=== PATIENT | female | born 1945 | race Native Hawaiian/Other Pacific Islander ===

== ENCOUNTER → 2016-05-05 | Outpatient (CLI) | payer MEDICARE, OTHER ==
--- NOTE | 2016-05-05 12:32 | BD ---
EXAMINATION TYPE: MG DEXA axial skeleton. DATE OF EXAM: 05/05/2016 11:29 AM REFERENCE: Previous study dated 03/07/2013. CLINICAL HISTORY: Height: 62.5 Weight: 169 FRAX RISK QUESTIONS: Alcohol (3 or more units per day): no Family History (Parent hip fracture): no Glucocorticoids (More than 3mos): no (Ex: prednisone, prednisolone, methylprednisolone, dexamethasone, and hydrocortisone). History of Fracture in Adulthood: no Secondary Osteoporosis: 1. Type 1 Diabetes: no 2. Hyperthyroidism: no 3. Menopause before 45: yes 4. Malnutrition: no 5. Chronic liver disease: no Rheumatoid Arthritis: no Current Tobacco Use: yes RISK FACTORS HISTORY OF: Family History of Osteoporosis: no Active: yes Diet low in dairy products/other sources of calcium: somewhat Postmenopausal woman: yes, hysterectomy age 42 Take estrogen and/or progesterone medications: not now How long: about 9 years Lost more than 2 inches in height since high school: unsure Hyperparathyroidism: no Adrenal Insufficiency: no MEDICATIONS: Prednisone or other steroids: no Thyroid Medications: no Osteoporosis Medications: no Additional Medications: blood pressure meds, cholesterol meds Additional History: unspecified osteoarthritis , knee& elbow fractured when about 16 in [place] EXAM MEASUREMENTS: Bone mineral densitometry was performed using the [employer] System. Bone mineral density as measured about the Lumbar spine is: ----- L1-L4(G/cm2): 1.047 T Score Values are as follows: ----- L2: -1.5 ----- L3: -0.4 ----- L4: -1.8 ----- L1-L4: -1.1 Bone mineral density has: Decreased -0.5% since study of: 03/07/2013 Bone mineral density about the R hip (g/cm2): 0.980 Bone mineral density about the L hip (g/cm2): 0.941 T Score values are as follows: -----R Neck: -0.4 -----L Neck: -0.7 -----R Intertrochanter: -0.4 -----L Intertrochanter: -0.3 Bone mineral density has: Decreased -5.2% since study of: 03/07/2013 IMPRESSION: Osteopenia (T Score between -2.5 and -1 as noted by T score values lumbar spine. There is slightly increased risk of fracture and the patient may be considered for treatment. Re-Screen 1-2 years. NOTE: T-SCORE=SD OF THE YOUNG ADULT MEAN.
== END | disposition home or self-care (01) ==
LOC: RADBDWWP 10:49
PROVIDERS: ATTEND Family Medicine
DX: M85.80 Other specified disorders of bone density and structure, unspecified site (principal); M19.90 Unspecified osteoarthritis, unspecified site
CPT/HCPCS: 77080

== ENCOUNTER 2017-06-30 09:01 | Day surgery (SDC) | payer MEDICARE, OTHER ==
[2017-06-29 09:52] VITALS: BMI 30.1
--- NOTE | 2017-06-29 20:51 | HP ---
HISTORY AND PHYSICAL DATE OF SURGERY: 06/30/2017 Shana Pennington is a 72-year-old patient seen with progressive right knee pain. We discussed treatment options. She elected to proceed with arthroscopy. Consent was obtained regarding the procedure. PAST MEDICAL HISTORY: 1. Hypertension. 2. Hyperlipidemia. PAST SURGICAL HISTORY: 1. Cholecystectomy. 2. Hysterectomy. DAILY MEDICATIONS: 1. Amlodipine. 2. Atenolol. 3. Atorvastatin. ALLERGIES: NONE REPORTED. SOCIAL HISTORY: Patient does smoke cigarettes. PHYSICAL EVALUATION OF THE RIGHT KNEE: Range of motion is zero to 125 degrees. There is tenderness along the medial joint line with a positive medial Rad's. Ligaments stable. Hip rotation is without pain. Distal neurovascular exam is intact. RADIOGRAPHS: Radiographs of the right knee revealed moderate osteoarthritis. An MRI of the right knee revealed a medial meniscal tear. IMPRESSION: 1. Internal derangement of the right knee with medial meniscal tear. 2. Hypertension. 3. Hyperlipidemia. PLAN: Right knee arthroscopy with partial meniscectomy and debridement. MMODL / IJN: [id number] /
[~2017-06-30 09:01] MED LIST: LACTATED RINGERS 1,000 ML IV SCH; MORPHINE SULFATE 4 MG/ML SYRINGE IVP PRN; ceFAZolin IN SWFI 2 GM/20 ML SYRINGE IVP ONE
[2017-06-30] MEDS ORDERED: LIDOCAINE 1% 20 ML VIAL (10MG/ML) FOR IV START INTRADERMA ONE (09:39)
[2017-06-30] MEDS ORDERED: ONDANSETRON 4 MG/2 ML VIAL IVP ONE (09:40)
[2017-06-30] MEDS ORDERED: DEXAMETHASONE SOD PHOSPHATE 10 MG/ML 1 ML VIAL IV ONE (09:41)
[2017-06-30] MEDS ORDERED: fentaNYL (PF) 50 MCG/ML 2 ML AMP ONE (10:28)
[2017-06-30] MEDS ORDERED: ePHEDrine SULFATE/0.9% NACL/PF 50 MG/5 ML SYRINGE IV ONE (10:28)
[2017-06-30] MEDS ORDERED: PROPOFOL 10 MG/ML 20 ML VIAL IV ONE (10:28)
[2017-06-30] MEDS ORDERED: MORPHINE SULFATE 10 MG/ML SYRINGE ONE (10:28)
[2017-06-30] MEDS ORDERED: MIDAZOLAM 2 MG/2 ML VIAL ONE (10:28)
[2017-06-30] MEDS ORDERED: LIDOCAINE 1% INJ 10MG/ML (20 ML MDV) ONE (10:28)
[2017-06-30] MEDS ORDERED: BUPIVACAINE (PF) 0.25% 30 ML VIAL SQ ONE ×2 (10:57→11:00)
--- NOTE | 2017-06-30 11:19 | P.OP ---
Date of Procedure: 06/30/17 Preoperative Diagnosis: Internal derangement right knee Postoperative Diagnosis: 1. Tear medial and lateral meniscus right knee 2. Grade 3/4 chondromalacia medial femoral condyle right knee 3. Grade 1/2 chondromalacia patella right knee 4. Reactive synovitis medial and suprapatellar compartments right knee Procedure(s) Performed: 1. Arthroscopic partial medial and lateral meniscectomy right knee 2. Arthroscopic chondroplasty medial femoral condyle right knee 3. Arthroscopic microfracture medial femoral condyle right knee 4. Arthroscopic chondroplasty patella right knee 5. Arthroscopic partial synovectomy medial and suprapatellar compartments right knee Anesthesia: WILLIEA, local Surgeon: Akhil Stahl Estimated Blood Loss (ml): 12 Pathology: none sent Condition: stable Disposition: PACU Indications for Procedure: 72-year-old patient seen with progressive right knee pain. After treatment options were discussed, she elected to proceed with arthroscopy. Operative Findings: See description of procedure Description of Procedure: Patient was taken to the operative suite. Patient underwent a general anesthetic by the department of anesthesia. Patient was given preoperative antibiotics. The right lower extremity was placed in a well-padded arthroscopic leg howell. The right leg was prepped and draped in the normal sterile orthopedic fashion. A lateral parapatellar and suprapatellar incision was made. Trochars were inserted. Arthroscopy was initiated. Suprapatellar pouch revealed diffuse thick reactive synovitis. The patellofemoral joint appeared to articulate congruently. There was grade 1/2 chondromalacia of the patella with some osteochondral tears present. The scope was guided into the medial gutter. No loose bodies or plica were identified. The scope was then guided into the medial compartment. A medial parapatellar incision was made. Trocar inserted followed by probe. There was a tear posterior horn medial meniscus. There were grade 3/4 chondromalacia changes of the medial femoral condyle with some osteochondral tears. There was reactive synovitis anteriorly. I performed a partial medial meniscectomy down to stable tissue. I performed a chondroplasty of the medial femoral condyle down to stable tissue and partial synovectomy. The residual meniscus was stable. There was a 1 area of full-thickness defect of the medial femoral condyle weightbearing surface measuring about 1 cm. I proceeded with a microfracture to this area. The residual area was stable. Scope and probe were then guided into the intercondylar notch. Cruciates were identified, probed and found to be stable. The scope and probe were then guided into lateral compartment. There was some superficial tearing midbody lateral meniscus. There were grade 1 chondromalacia changes of the lateral condyle tears present. I performed a partial lateral meniscectomy down to stable tissue. The residual meniscus was stable. The scope was in guided back into the suprapatellar compartment. Motorize shaver was introduced into the suprapatellar compartment. I debrided some piecemeal fragments of meniscus. I performed a chondroplasty of the patella. I performed a partial synovectomy. The residual osteochondral surface was stable. I took one more look on the entire knee, no residual debris. Instruments were now removed from the joint. The joint was infiltrated with .25% Marcaine. Steri-Strips were applied to the portal sites. Sterile dressings were applied. The patient was placed into a NERISSA hose. No tourniquet was utilized. The patient was awakened, transferred to a bed and taken to recovery stable satisfactory condition.
[2017-06-30 11:22] VITALS: TEMP 97.6
[2017-06-30 12:56] VITALS: RESP 16
[2017-06-30 13:35] VITALS: BP 138/67; PULSE 74
[2017-06-30] MEDS ORDERED: HYDROcodone/APAP 5-325MG 1 EACH TAB PO ONE (13:45)
== END 2017-06-30 14:08 | disposition home or self-care (01) ==
LOC: OR 09:01
PROVIDERS: ATTEND Orthopaedic Surgery
DX: S83.241A Other tear of medial meniscus, current injury, right knee, initial encounter (principal); S83.281A Other tear of lateral meniscus, current injury, right knee, initial encounter; X58.XXXA Exposure to other specified factors, initial encounter; M22.41 Chondromalacia patellae, right knee; M65.861 Other synovitis and tenosynovitis, right lower leg; I10 Essential (primary) hypertension; E78.5 Hyperlipidemia, unspecified; Z79.899 Other long term (current) drug therapy; F17.210 Nicotine dependence, cigarettes, uncomplicated; M19.90 Unspecified osteoarthritis, unspecified site; K21.9 Gastro-esophageal reflux disease without esophagitis
CPT/HCPCS: 29880; 29879; J2250; J1100; J2270; J2405; J2001; J3010; J2704; J0690

== ENCOUNTER 2017-11-17 04:18 | Emergency (ER) | payer MEDICARE, OTHER ==
--- NOTE | 2017-11-17 04:51 | ED ---
Dizziness HPI - General Chief Complaint: Dizziness Stated Complaint: dizziness Time Seen by Provider: 11/17/17 04:45 Source: patient, family Mode of arrival: ambulatory Limitations: no limitations - History of Present Illness Initial Comments: This patient is a 72-year-old woman who presents to be evaluated for sensation that the room was spinning that developed this morning, probably about an hour before she came in, when she got up to use the bathroom. Patient states that after she had use the bathroom, she went back and went to lie down in bed and the symptoms recurred. She denied any associated chest pain, palpitations, dyspnea, diaphoresis, lightheadedness or syncope. No associated neurologic symptoms. No head or ear pain MD Complaint: dizziness Onset/Timin -: hour(s) Timing: sudden onset Description: "room spinning" History of Same: No History of Trauma: No Severity: moderate Improves With: remaining still Worsens With: position Associated Symptoms: denies other symptoms - Related Data Home Medications Medication Instructions Recorded Confirmed Atenolol 25 mg PO BID 12/24/14 11/17/17 Atorvastatin [Lipitor] 40 mg PO HS 12/24/14 11/17/17 Fenofibrate 160 mg PO HS 12/24/14 11/17/17 Omeprazole 20 mg PO DAILY 12/24/14 11/17/17 amLODIPine BESYLATE/BENAZEPRIL 1 tab PO DAILY 12/24/14 11/17/17 [Amlodipine-Benazepril 10-20 mg] Alendronate Sodium [Fosamax] 70 mg PO MO 04/11/17 11/17/17 Previous Rx's Medication Instructions Recorded Hydrocodone/Acetaminophen [[place] 1 each PO Q6HR PRN #20 tab 06/30/17 5-325] Allergies Allergy/AdvReac Type Severity Reaction Status Date / Time No Known Allergies Allergy Verified 11/17/17 04:25 Review of Systems ROS Statement: Those systems with pertinent positive or pertinent negative responses have been documented in the HPI. ROS Other: All systems not noted in ROS Statement are negative. Constitutional: Denies: fever, chills, weakness Eyes: Denies: vision change ENT: Denies: ear pain, hearing loss Respiratory: Denies: cough, dyspnea Cardiovascular: Denies: chest pain, palpitations, orthopnea, edema, syncope Gastrointestinal: Denies: abdominal pain, nausea, vomiting Skin: Denies: rash Neurological: Reports: vertigo. Denies: headache, weakness, numbness, paresthesias, confusion, abnormal gait Past Medical History Past Medical History: GERD/Reflux, Hyperlipidemia, Hypertension History of Any Multi-Drug Resistant Organisms: None Reported Past Surgical History: Cholecystectomy, Hysterectomy Past Psychological History: Anxiety Smoking Status: Current some day smoker Past Alcohol Use History: Occasional Past Drug Use History: None Reported General Exam Limitations: no limitations General appearance: alert, in no apparent distress Head exam: Present: atraumatic Eye exam: Present: normal appearance, EOMI. Absent: scleral icterus, conjunctival injection, nystagmus ENT exam: Present: normal oropharynx, mucous membranes moist Neck exam: Present: normal inspection, other (No carotid bruit) Respiratory exam: Present: normal lung sounds bilaterally. Absent: respiratory distress, wheezes, rales, rhonchi, stridor Cardiovascular Exam: Present: regular rate, normal rhythm, normal heart sounds. Absent: systolic murmur, diastolic murmur, rubs, gallop GI/Abdominal exam: Present: soft. Absent: distended, tenderness, guarding, rebound, mass Neurological exam: Present: alert, oriented X3, CN II-XII intact. Absent: motor sensory deficit Skin exam: Present: warm, dry, intact, normal color. Absent: rash Course Vital Signs 11/17/17 04:21 Temperature 98.7 F Pulse Rate 78 Respiratory 18 Rate Blood Pressure 170/75 O2 Sat by Pulse 98 Oximetry EKG Findings - EKG Results: EKG: interpreted by ERMD, sinus rhythm, normal axis, normal QRS, normal ST/T - Blocks, [place], Hypertrophy, ST Abn: Repolarization changes or abnormalities: nonspecific abnormality, ST segment, and/or T wave Medical Decision Making - Lab Data Result diagrams: 11/17/17 04:45 11/17/17 04:45 Lab Results 11/17/17 11/17/17 11/17/17 Range/Units 04:45 04:45 04:45 WBC 9.1 (3.8-10.6) k/uL RBC 4.24 (3.80-5.40) m/uL Hgb 13.6 (11.4-16.0) gm/dL Hct 39.4 (34.0-46.0) % MCV 92.8 (80.0-100.0) fL MCH 31.9 (25.0-35.0) pg MCHC 34.4 (31.0-37.0) g/dL RDW 13.5 (11.5-15.5) % Plt Count 323 (150-450) k/uL Neutrophils % 60 % Lymphocytes % 32 % Monocytes % 4 % Eosinophils % 2 % Basophils % 1 % Neutrophils # 5.4 (1.3-7.7) k/uL Lymphocytes # 2.9 (1.0-4.8) k/uL Monocytes # 0.4 (0-1.0) k/uL Eosinophils # 0.2 (0-0.7) k/uL Basophils # 0.1 (0-0.2) k/uL PT (9.0-12.0) sec INR (<1.2) Sodium 144 (137-145) mmol/L Potassium 3.9 (3.5-5.1) mmol/L Chloride 112 H (98-107) mmol/L Carbon Dioxide 23 (22-30) mmol/L Anion Gap 9 mmol/L BUN 25 H (7-17) mg/dL Creatinine 0.70 (0.52-1.04) mg/dL Est GFR (CKD-EPI)AfAm >90 (>60 ml/min/1.73 sqM) Est GFR (CKD-EPI)NonAf 87 (>60 ml/min/1.73 sqM) Glucose 127 H (74-99) mg/dL Calcium 9.8 (8.4-10.2) mg/dL Total Bilirubin 0.4 (0.2-1.3) mg/dL AST 34 (14-36) U/L ALT 32 (9-52) U/L Alkaline Phosphatase 97 (38-126) U/L Total Creatine Kinase 56 (30-135) U/L CK-MB (CK-2) 0.3 (0.0-2.4) ng/mL CK-MB (CK-2) Rel Index 0.5 Troponin I <0.012 (0.000-0.034) ng/mL Total Protein 7.4 (6.3-8.2) g/dL Albumin 4.6 (3.5-5.0) g/dL 11/17/17 Range/Units 04:45 WBC (3.8-10.6) k/uL RBC (3.80-5.40) m/uL Hgb (11.4-16.0) gm/dL Hct (34.0-46.0) % MCV (80.0-100.0) fL MCH (25.0-35.0) pg MCHC (31.0-37.0) g/dL RDW (11.5-15.5) % Plt Count (150-450) k/uL Neutrophils % % Lymphocytes % % Monocytes % % Eosinophils % % Basophils % % Neutrophils # (1.3-7.7) k/uL Lymphocytes # (1.0-4.8) k/uL Monocytes # (0-1.0) k/uL Eosinophils # (0-0.7) k/uL Basophils # (0-0.2) k/uL PT 10.3 (9.0-12.0) sec INR 1.1 (<1.2) Sodium (137-145) mmol/L Potassium (3.5-5.1) mmol/L Chloride (98-107) mmol/L Carbon Dioxide (22-30) mmol/L Anion Gap mmol/L BUN (7-17) mg/dL Creatinine (0.52-1.04) mg/dL Est GFR (CKD-EPI)AfAm (>60 ml/min/1.73 sqM) Est GFR (CKD-EPI)NonAf (>60 ml/min/1.73 sqM) Glucose (74-99) mg/dL Calcium (8.4-10.2) mg/dL Total Bilirubin (0.2-1.3) mg/dL AST (14-36) U/L ALT (9-52) U/L Alkaline Phosphatase (38-126) U/L Total Creatine Kinase (30-135) U/L CK-MB (CK-2) (0.0-2.4) ng/mL CK-MB (CK-2) Rel Index Troponin I (0.000-0.034) ng/mL Total Protein (6.3-8.2) g/dL Albumin (3.5-5.0) g/dL Disposition Clinical Impression: Vertigo Disposition: HOME SELF-CARE Condition: Good Instructions: Vertigo (ED) Is patient prescribed a controlled substance at d/c from ED?: No Referrals: Gordy Yeung [Primary Care Provider] - 1-2 days
[2017-11-17 04:55] LABS: Basophils # (A) 0.1 k/uL (0-0.2); Basophils % (A) 1 %; Eosinophils # (A) 0.2 k/uL (0-0.7); Eosinophils % (A) 2 %; HCT 39.4 % (34.0-46.0); HGB 13.6 gm/dL (11.4-16.0); Lymphocytes # (A) 2.9 k/uL (1.0-4.8); Lymphocytes % (A) 32 %; MCH 31.9 pg (25.0-35.0); MCHC 34.4 g/dL (31.0-37.0); MCV 92.8 fL (80.0-100.0); Mean Platelet Volume 6.5; Monocytes # (A) 0.4 k/uL (0-1.0); Monocytes % (A) 4 %; Neutrophils # (A) 5.4 k/uL (1.3-7.7); Neutrophils % (A) 60 %; Platelet Count 323 k/uL (150-450); RBC 4.24 m/uL (3.80-5.40); RDW 13.5 % (11.5-15.5); WBC 9.1 k/uL (3.8-10.6)
[2017-11-17 05:08] LABS: INR 1.1 (<1.2); Prothrombin Time 10.3 sec (9.0-12.0)
[2017-11-17 05:09] LABS: ALT 32 U/L (9-52); AST 34 U/L (14-36); Albumin 4.6 g/dL (3.5-5.0); Alkaline Phosphatase 97 U/L (38-126); Anion Gap 9 mmol/L; Blood Urea Nitrogen 25 mg/dL (7-17); Calcium 9.8 mg/dL (8.4-10.2); Carbon Dioxide 23 mmol/L (22-30); Chloride 112 mmol/L (98-107); Glucose 127 mg/dL (74-99); Potassium 3.9 mmol/L (3.5-5.1); Sodium 144 mmol/L (137-145); Total Bilirubin 0.4 mg/dL (0.2-1.3); Total Protein 7.4 g/dL (6.3-8.2)
[2017-11-17 05:12] LABS: Creatine Kinase 56 U/L (30-135)
[2017-11-17 05:25] LABS: Creatine Kinase MB 0.3 ng/mL (0.0-2.4); Troponin I <0.012 ng/mL (0.000-0.034)
[2017-11-17 07:04] VITALS: BP 162/70; PULSE 65; RESP 16; TEMP 98.2
== END 2017-11-17 07:24 | disposition home or self-care (01) ==
LOC: EC 04:18
DX: R42 Dizziness and giddiness (principal); K21.9 Gastro-esophageal reflux disease without esophagitis; E78.5 Hyperlipidemia, unspecified; I10 Essential (primary) hypertension; F17.200 Nicotine dependence, unspecified, uncomplicated; Z79.899 Other long term (current) drug therapy
CPT/HCPCS: 36415; 80053; 82550; 82553; 84484; 85025; 85610; 93005; 99284

== ENCOUNTER → 2018-01-06 | Outpatient (CLI) | payer MEDICARE, OTHER ==
[2018-01-06 14:25] LABS: Albumin 4.4 g/dL (3.5-5.0); Magnesium 2.1 mg/dL (1.6-2.3); Potassium 4.4 mmol/L (3.5-5.1); Total Bilirubin 0.6 mg/dL (0.2-1.3); Total Protein 7.7 g/dL (6.3-8.2)
--- NOTE | 2018-01-06 14:30 | US ---
EXAMINATION TYPE: US venous doppler duplex LE LT DATE OF EXAM: 01/06/2018 1:30 PM COMPARISON: NONE CLINICAL HISTORY: Pain in left lower limb M79.605. SIDE PERFORMED: Left TECHNIQUE: The lower extremity deep venous system is examined utilizing real time linear array sonog karla with graded compression, doppler sonography and color-flow sonography. VESSELS IMAGED: External Iliac Vein (EIV) Common Femoral Vein Deep Femoral Vein Greater Saphenous Vein * Femoral Vein Popliteal Vein Proximal Calf Veins (* superficial vessels) Left Leg: Negative for DVT Grayscale, color doppler, spectral doppler imaging performed of the deep veins of the left lower extr emity. There is normal flow, compressibility, vascular waveforms. IMPRESSION: No ultrasound evidence for acute DVT in the left lower extremity.
== END | disposition home or self-care (01) ==
LOC: RADUSWWP 13:05
PROVIDERS: ATTEND Family Medicine
DX: M79.605 Pain in left leg (principal)
CPT/HCPCS: 36415; 80053; 83735

== ENCOUNTER 2018-06-07 07:40 | Emergency (ER) | payer MEDICARE, OTHER ==
[2018-06-07 07:45] VITALS: BP 109/71; PULSE 69; RESP 18; TEMP 98.2
[2018-06-07] MEDS ORDERED: CYCLOBENZAPRINE 10MG STARTER 3 TAB BTL PO STA (08:19)
[2018-06-07] MEDS ORDERED: KETOROLAC 60 MG/2 ML VIAL IM STA (08:19)
[2018-06-07] MEDS ORDERED: ACET/COD 300 MG/30 MG STARTER PACK 6 TAB BTL PO STA (08:19)
--- NOTE | 2018-06-07 08:23 | ED ---
Back Pain HPI - General Chief Complaint: Back Pain/Injury Stated Complaint: back pain Time Seen by Provider: 06/07/18 07:55 Source: patient, RN notes reviewed, old records reviewed Limitations: no limitations - History of Present Illness Initial Comments: Patient is a 73-year-old female who presents emergency room today with complaints of thoracic and lumbar back pain. Patient states she saw her PCP yesterday. She was given an injection for pain and discharged with by mouth Motrin. Patient states that she has an order for outpatient x-rays. Patient states the pain does not seem to improve after the injection. Patient states pain is worse with movement twisting. She denies any saddle anesthesias. She denies any abdominal pain, dysuria hematuria or changes in stools. Patient states that she has had pain for the past 2 weeks after getting a new cat. She reports that she's been having to lift the Food up and put it away on a shelf. - Related Data Home Medications Medication Instructions Recorded Confirmed Atenolol 25 mg PO BID 12/24/14 06/07/18 Atorvastatin [Lipitor] 40 mg PO HS 12/24/14 06/07/18 Fenofibrate 160 mg PO HS 12/24/14 06/07/18 Omeprazole 20 mg PO DAILY 12/24/14 06/07/18 amLODIPine BESYLATE/BENAZEPRIL 1 tab PO DAILY 12/24/14 06/07/18 [Amlodipine-Benazepril 10-20 mg] Previous Rx's Medication Instructions Recorded Cyclobenzaprine [Flexeril] 10 mg PO TID #12 tab 06/07/18 Allergies Allergy/AdvReac Type Severity Reaction Status Date / Time No Known Allergies Allergy Verified 06/07/18 08:03 Review of Systems ROS Statement: Those systems with pertinent positive or pertinent negative responses have been documented in the HPI. ROS Other: All systems not noted in ROS Statement are negative. Past Medical History Past Medical History: GERD/Reflux, Hyperlipidemia, Hypertension History of Any Multi-Drug Resistant Organisms: None Reported Past Surgical History: Cholecystectomy, Hysterectomy Past Psychological History: Anxiety Smoking Status: Current some day smoker Past Alcohol Use History: None Reported Past Drug Use History: None Reported General Exam - General Exam Comments Initial Comments: Pleasant 73-year-old female. Alert and oriented 3. No significant distress. Limitations: no limitations General appearance: alert, in no apparent distress Head exam: Present: atraumatic, normocephalic, normal inspection Eye exam: Present: normal appearance, PERRL, EOMI. Absent: scleral icterus, conjunctival injection, periorbital swelling ENT exam: Present: normal exam, mucous membranes moist Neck exam: Present: normal inspection. Absent: tenderness, meningismus, lymphadenopathy Respiratory exam: Present: normal lung sounds bilaterally. Absent: respiratory distress, wheezes, rales, rhonchi, stridor Cardiovascular Exam: Present: regular rate, normal rhythm, normal heart sounds. Absent: systolic murmur, diastolic murmur, rubs, gallop, clicks GI/Abdominal exam: Present: soft, normal bowel sounds. Absent: distended, tenderness, guarding, rebound, rigid Extremities exam: Present: normal inspection, full ROM, normal capillary refill. Absent: tenderness, pedal edema, joint swelling, calf tenderness Back exam: Present: normal inspection, tenderness (Patient has tenderness over the lumbar and thoracic spine.) Neurological exam: Present: alert, oriented X3, CN II-XII intact Psychiatric exam: Present: normal affect, normal mood Skin exam: Present: warm, dry, intact, normal color. Absent: rash Course Vital Signs 06/07/18 07:42 Temperature 98.2 F Pulse Rate 69 Respiratory 18 Rate Blood Pressure 109/71 O2 Sat by Pulse 99 Oximetry Medical Decision Making - Medical Decision Making Patient is a 73-year-old female who presents for service today with complaints of lower back pain. Symptoms are worse with movement. Patient's x-rays were completed. His evidence of L5-S1 degenerative disc disease. No other acute osseous normality. Patient will be discharged with following up with her primary care physician. I discussed using antibiotics her medicine and will prescribe the Patient with muscle relaxers. All questions answered return parameters were discussed. - Radiology Data Radiology results: report reviewed Subtle scoliosis which can be positional. There is no acute osseous normality within the thoracic spine. Lumbar spine shows posterior L5-S1 degenerative disc disease noted. The she will buy heads are preserved. Alignment is normal. Minimal spondylosis is present. Disposition Clinical Impression: Acute lumbar back pain, DDD (degenerative disc disease), lumbar Disposition: HOME SELF-CARE Condition: Good Instructions (If sedation given, give patient instructions): Acute Low Back Pain (ED) Additional Instructions: Patient advised to follow-up with primary care physician. Patient should return to emergency department if any alarming signs or symptoms occur. Prescriptions: Cyclobenzaprine [Flexeril] 10 mg PO TID #12 tab Is patient prescribed a controlled substance at d/c from ED?: No Referrals: Gordy Yeung DO [Primary Care Provider] - 1-2 days Jesus Manuel Redmond DO [Doctor of Osteopathic Medicine] - 1-2 days Time of Disposition: 09:36
--- NOTE | 2018-06-07 09:22 | XR ---
EXAMINATION TYPE: XR thoracic spine 2V DATE OF EXAM: 06/07/2018 COMPARISON: None HISTORY: Upper back pain TECHNIQUE: Three-view thoracic spine FINDINGS: There are 12 thoracic type vertebral bodies. Pedicles are intact. Disc heights are preserve d. Vertebral body heights are preserved. There is a subtle scoliosis present with convexity to the right. This can be positional. IMPRESSION: 1. Subtle scoliosis which can be positional. 2. No acute osseous abnormality.
--- NOTE | 2018-06-07 09:24 | XR ---
EXAMINATION TYPE: XR lumbar spine 2 or 3V DATE OF EXAM: 06/07/2018 COMPARISON: None HISTORY: Pain low back TECHNIQUE: Three-view lumbar spine FINDINGS: There are 5 lumbar-type vertebral bodies. Pedicles are intact. Some posterior disc space na rrowing is present L5-S1. Remaining disc heights are preserved. Vertebral body heights are preserved. Alignment is normal. Minimal spondylosis is present. IMPRESSION: 1. Posterior L5-S1 degenerative disc changes.
== END 2018-06-07 10:06 | disposition home or self-care (01) ==
LOC: EC 07:40
DX: M51.37 Other intervertebral disc degeneration, lumbosacral region (principal); K21.9 Gastro-esophageal reflux disease without esophagitis; E78.5 Hyperlipidemia, unspecified; I10 Essential (primary) hypertension; F17.200 Nicotine dependence, unspecified, uncomplicated; Z79.899 Other long term (current) drug therapy
CPT/HCPCS: 99284; 96372; 72070; 72100; J1885

== ENCOUNTER → 2019-08-28 | Outpatient (CLI) | payer MEDICARE, OTHER ==
[2019-08-28 09:39] LABS: African American GFR (CKD) >90 (>60 ml/min/1.73 sqM); Blood Urea Nitrogen 15 mg/dL (7-17); Non-African American GFR(CKD) 86 (>60 ml/min/1.73 sqM)
--- NOTE | 2019-08-28 11:26 | CT ---
EXAMINATION TYPE: CT abdomen pelvis w con DATE OF EXAM: 08/28/2019 COMPARISON: Correlation CT chest 08/01/2012 HISTORY: 74-year-old female with flank pain, generalized abdominal pain, constipation TECHNIQUE: Contiguous axial scanning of the abdomen and pelvis following administration of 100 ml Iso dru 300 IV contrast. Delayed images through the kidneys and coronal/sagittal reconstructions perform ed. CT DLP: 643.2 mGycm Automated exposure control for dose reduction was used. FINDINGS: Heart normal size without pericardial effusion. Lung bases clear without pleural effusion. 5 mm hypodensity anterior right liver lobe on axial image 14 too small for density characterization, probable tiny cyst. Portal venous system is patent. No biliary ductal dilatation. Gallbladder appears surgically absent. Mild nodular thickening of the right adrenal gland measuring up to 1.7 cm and be reassessed at follow -up. Left adrenal gland, kidneys, spleen, pancreas appear within normal limits. No dilated small bowel, free fluid, or free air. No mesenteric or retroperitoneal lymphadenopathy. There is moderate circumferential wall thickening extending along the ascending colon from the level of the ileocecal valve nearly to the hepatic flexure. There is secondary in the luminal narrowing is somewhat shouldered appearance, refer to coronal image 36 and axial image 42. Oral contrast has progr essed to the mid transverse colon there is mild overall stool burden. No pericolonic inflammatory gualberto nge otherwise seen. Appendix not discretely visualized. Mild circumferential bladder wall thickening. Mild pelvic floor relaxation. Multiple pelvic phlebolit hs. Uterus surgically absent. Small bilateral ovaries are visualized. No abnormal fluid collection in the pelvis or pelvic lymphadenopathy. Bones: Hypertrophic facet arthropathy at L5-S1 with grade 1 anterolisthesis. IMPRESSION: 1. MODERATE IRREGULAR WALL THICKENING INVOLVING THE ASCENDING COLON FROM THE LEVEL OF THE ILEOCECAL V ALVE NEARLY UP TO THE HEPATIC FLEXURE. CORRELATE FOR INFECTIOUS OR INFLAMMATORY COLITIS. FOLLOWING TR EATMENT, DIRECT VISUALIZATION RECOMMENDED TO EXCLUDE UNDERLYING NEOPLASM. 2. A 1.7 CM RIGHT ADRENAL NODULE WAS PRESENT BACK ON 08/01/2012 SUGGESTING A BENIGN ADRENAL ADENOMA. 3. MUSCULAR COMPARTMENT OR BLADDER WALL THICKENING; CORRELATE TO EXCLUDE CYSTITIS. 4. PELVIC FLOOR RELAXATION.
== END | disposition home or self-care (01) ==
LOC: RADCTMAIN 08:56
PROVIDERS: ATTEND Family Medicine
DX: K63.89 Other specified diseases of intestine (principal); N81.84 Pelvic muscle wasting; E27.9 Disorder of adrenal gland, unspecified; N32.89 Other specified disorders of bladder; K59.00 Constipation, unspecified
CPT/HCPCS: 82565; 84520; 74177; 36415; Q9967

== ENCOUNTER 2019-10-11 10:30 | Emergency (ER) | payer MEDICARE, OTHER ==
[2019-10-11] MEDS ORDERED: MAG HYDROX/AL HYDROX/SIMETH 30 ML, HYOSCYAMINE ELIXIR 10 ML, LIDOCAINE VISCOUS 2% 10 ML PO STA ×3 (10:54)
[2019-10-11] MEDS ORDERED: FAMOTIDINE 20 MG/2 ML VIAL IV STA (10:54)
[2019-10-11] MEDS ORDERED: SODIUM CHLORIDE 0.9% 1,000 ML IV STA (10:54)
--- NOTE | 2019-10-11 10:58 | ED ---
General Adult HPI - General Chief complaint: Abdominal Pain Stated complaint: abd pain Time Seen by Provider: 10/11/19 10:41 Source: patient, RN notes reviewed Mode of arrival: wheelchair Limitations: no limitations - History of Present Illness Initial comments: 74-year-old female presents to the emergency determine for chief complaint of epigastric pain. Patient states she has had issues with her abdominal pain since July. States she saw her primary care provider earlier this week who had her see Dr. Elliott. She saw him yesterday and was scheduled for colonoscopy on next Tuesday. Patient states this pain worsened 3 days ago. States it is epi gastric in nature. Patient states it feels better at night but worsened throughout the day. Denies any other alleviating or aggravating factors. Denies nausea vomiting. Patient states she did take milk of magnesia to have a bowel movement but did have a normal bowel movement yesterday.Patient has no other complaints at this time including shortness of breath, chest pain, nausea or vomiting, headache, or visual changes. - Related Data Home Medications Medication Instructions Recorded Confirmed Atenolol 25 mg PO BID 12/24/14 06/07/18 Omeprazole 20 mg PO DAILY 12/24/14 06/07/18 amLODIPine BESYLATE/BENAZEPRIL 1 tab PO DAILY 12/24/14 06/07/18 [Amlodipine-Benazepril 10-20 mg] ALPRAZolam [Xanax] 0.25 mg PO HS PRN 10/11/19 10/11/19 Ibuprofen [Motrin] 800 mg PO TID PRN 10/11/19 10/11/19 Levofloxacin 500 mg PO DAILY 10/11/19 10/11/19 Ondansetron Odt [Zofran Odt] 4 mg PO Q12H PRN 10/11/19 10/11/19 Allergies Allergy/AdvReac Type Severity Reaction Status Date / Time No Known Allergies Allergy Verified 10/11/19 12:52 Review of Systems ROS Statement: Those systems with pertinent positive or pertinent negative responses have been documented in the HPI. ROS Other: All systems not noted in ROS Statement are negative. Past Medical History Past Medical History: GERD/Reflux, Hyperlipidemia, Hypertension History of Any Multi-Drug Resistant Organisms: None Reported Past Surgical History: Cholecystectomy, Hysterectomy Past Psychological History: Anxiety Smoking Status: Current some day smoker Past Alcohol Use History: None Reported Past Drug Use History: None Reported General Exam Limitations: no limitations General appearance: alert, in no apparent distress Head exam: Present: atraumatic, normocephalic, normal inspection Eye exam: Present: normal appearance, PERRL, EOMI. Absent: scleral icterus, conjunctival injection, periorbital swelling ENT exam: Present: normal exam, mucous membranes moist Neck exam: Present: normal inspection, full ROM. Absent: tenderness, meningi smus, lymphadenopathy Respiratory exam: Present: normal lung sounds bilaterally. Absent: respiratory distress, wheezes, rales, rhonchi, stridor Cardiovascular Exam: Present: regular rate, normal rhythm, normal heart sounds. Absent: systolic murmur, diastolic murmur, rubs, gallop, clicks GI/Abdominal exam: Present: soft, tenderness (Mild tenderness epigastric area), normal bowel sounds. Absent: distended, guarding, rebound, rigid Neurological exam: Present: alert Course Vital Signs 10/11/19 10:37 Temperature 97.6 F Pulse Rate 66 Respiratory 18 Rate Blood Pressure 134/74 O2 Sat by Pulse 99 Oximetry EKG Findings - EKG Comments: EKG Findings:: Normal sinus rhythm, ventricular rate 62, TN interval 170, QTC 414 Medical Decision Making - Medical Decision Making CT abdomen and pelvis with contrast performed on 08/28/2019 showed moderate irregular wall thickening involving the descending colon from the level of the ileocecal valve nearly up to the hepatic flexure, correlate for infectious or inflammatory colitis. Patient did take 10 days of an unknown antibiotic at that time and symptoms improved. Vitals are stable. Patient is afebrile. CBC shows minimal leukocytosis, likely reactive. CMP is unremarkable. EKG shows a normal sinus rhythm. X-ray KUB shows scattered small colonic air-fluid level suggesting liquid stool which could reflect enteritis or ileus, overall nonobstructive bowel gas pattern at this time. No free air. Patient was given Pepcid and GI cocktail. She had significant improvement in pain down from an 8 to a 3. Abdomen was reevaluated and is nontender. Patient has an appointment with her surgeon in less than a week. At this time patient will be discharged home to follow up. She will continue to take her Protonix. She'll return here for any worsening symptoms w ere discussed in depth with her. - Lab Data Result diagrams: 10/11/19 11:17 10/11/19 11:17 Lab Results 10/11/19 10/11/19 10/11/19 Range/Units 11:17 11:17 11:17 WBC 12.8 H (3.8-10.6) k/uL RBC 4.75 (3.80-5.40) m/uL Hgb 14.4 (11.4-16.0) gm/dL Hct 43.3 (34.0-46.0) % MCV 91.2 (80.0-100.0) fL MCH 30.4 (25.0-35.0) pg MCHC 33.3 (31.0-37.0) g/dL RDW 13.3 (11.5-15.5) % Plt Count 308 (150-450) k/uL Neutrophils % 83 % Lymphocytes % 10 % Monocytes % 5 % Eosinophils % 2 % Basophils % 0 % Neutrophils # 10.6 H (1.3-7.7) k/uL Lymphocytes # 1.3 (1.0-4.8) k/uL Monocytes # 0.6 (0-1.0) k/uL Eosinophils # 0.2 (0-0.7) k/uL Basophils # 0.0 (0-0.2) k/uL Sodium 138 (137-145) mmol/L Potassium 4.5 (3.5-5.1) mmol/L Chloride 104 (98-107) mmol/L Carbon Dioxide 25 (22-30) mmol/L Anion Gap 9 mmol/L BUN 22 H (7-17) mg/dL Creatinine 0.96 (0.52-1.04) mg/dL Est GFR (CKD-EPI)AfAm 67 (>60 ml/min/1.73 sqM) Est GFR (CKD-EPI)NonAf 59 (>60 ml/min/1.73 sqM) Glucose 91 (74-99) mg/dL Plasma Lactic Acid Sudhakar (0.7-2.0) mmol/L Calcium 10.0 (8.4-10.2) mg/dL Total Bilirubin 0.8 (0.2-1.3) mg/dL AST 25 (14-36) U/L ALT 20 (4-34) U/L Alkaline Phosphatase 108 (38-126) U/L Troponin I (0.000-0.034) ng/mL Total Protein 7.5 (6.3-8.2) g/dL Albumin 4.2 (3.5-5.0) g/dL Amylase 52 (30-110) U/L Lipase 103 (23-300) U/L Urine Color Yellow Urine Appearance Clear (Clear) Urine pH 6.0 (5.0-8.0) Ur Specific [place] 1.014 (1.001-1.035) Urine Protein Negative (Negative) Urine Glucose (UA) Negative (Negative) Urine Ketones Negative (Negative) Urine Blood Small H (Negative) Urine Nitrite Negative (Negative) Urine Bilirubin Negative (Negative) Urine Urobilinogen <2.0 (<2.0) mg/dL Ur Leukocyte Esterase Negative (Negative) Urine RBC 2 (0-5) /hpf Urine WBC 1 (0-5) /hpf Ur Squamous Epith Cells 4 (0-4) /hpf Hyaline Casts 11 H (0-2) /lpf Urine Mucus Few H (None) /hpf 10/11/19 10/11/19 Range/Units 11:17 11:17 WBC (3.8-10.6) k/uL RBC (3.80-5.40) m/uL Hgb (11.4-16.0) gm/dL Hct (34.0-46.0) % MCV (80.0-100.0) fL MCH (25.0-35.0) pg MCHC (31.0-37.0) g/dL RDW (11.5-15.5) % Plt Count (150-450) k/uL Neutrophils % % Lymphocytes % % Monocytes % % Eosinophils % % Basophils % % Neutrophils # (1.3-7.7) k/uL Lymphocytes # (1.0-4.8) k/uL Monocytes # (0-1.0) k/uL Eosinophils # (0-0.7) k/uL Basophils # (0-0.2) k/uL Sodium (137-145) mmol/L Potassium (3.5-5.1) mmol/L Chloride (98-107) mmol/L Carbon Dioxide (22-30) mmol/L Anion Gap mmol/L BUN (7-17) mg/dL Creatinine (0.52-1.04) mg/dL Est GFR (CKD-EPI)AfAm (>60 ml/min/1.73 sqM) Est GFR (CKD-EPI)NonAf (>60 ml/min/1.73 sqM) Glucose (74-99) mg/dL Plasma Lactic Acid Sudhakar 1.4 (0.7-2.0) mmol/L Calcium (8.4-10.2) mg/dL Total Bilirubin (0.2-1.3) mg/dL AST (14-36) U/L ALT (4-34) U/L Alkaline Phosphatase (38-126) U/L Troponin I <0.012 (0.000-0.034) ng/mL Total Protein (6.3-8.2) g/dL Albumin (3.5-5.0) g/dL Amylase (30-110) U/L Lipase (23-300) U/L Urine Color Urine Appearance (Clear) Urine pH (5.0-8.0) Ur Specific [place] (1.001-1.035) Urine Protein (Negative) Urine Glucose (UA) (Negative) Urine Ketones (Negative) Urine Blood (Negative) Urine Nitrite (Negative) Urine Bilirubin (Negative) Urine Urobilinogen (<2.0) mg/dL Ur Leukocyte Esterase (Negative) Urine RBC (0-5) /hpf Urine WBC (0-5) /hpf Ur Squamous Epith Cells (0-4) /hpf Hyaline Casts (0-2) /lpf Urine Mucus (None) /hpf Disposition Clinical Impression: Abdominal pain Disposition: HOME SELF-CARE Condition: Good Instructions (If sedation given, give patient instructions): Abdominal Pain (E D) Additional Instructions: Please follow-up with your surgeon at your scheduled appointment. However if you have worsening symptoms or increased pain prior to that time return here to the emergency department for reevaluation. Is patient prescribed a controlled substance at d/c from ED?: No Referrals: Gordy Yeung DO [Primary Care Provider] - 1-2 days Jose De Jesus Elliott MD [Medical Doctor] - 1-2 days Time of Disposition: 12:57
[2019-10-11 11:32] LABS: Basophils % (A) 0 %; Eosinophils # (A) 0.2 k/uL (0-0.7); Eosinophils % (A) 2 %; HCT 43.3 % (34.0-46.0); HGB 14.4 gm/dL (11.4-16.0); Lymphocytes # (A) 1.3 k/uL (1.0-4.8); Lymphocytes % (A) 10 %; MCH 30.4 pg (25.0-35.0); MCHC 33.3 g/dL (31.0-37.0); MCV 91.2 fL (80.0-100.0); Mean Platelet Volume 6.9; Monocytes # (A) 0.6 k/uL (0-1.0); Monocytes % (A) 5 %; Neutrophils # (A) 10.6 k/uL (1.3-7.7); Neutrophils % (A) 83 %; Platelet Count 308 k/uL (150-450); RBC 4.75 m/uL (3.80-5.40); RDW 13.3 % (11.5-15.5); WBC 12.8 k/uL (3.8-10.6)
[2019-10-11 11:48] LABS: Albumin 4.2 g/dL (3.5-5.0); Total Bilirubin 0.8 mg/dL (0.2-1.3); Total Protein 7.5 g/dL (6.3-8.2)
--- NOTE | 2019-10-11 11:52 | XR ---
EXAMINATION TYPE: XR KUB DATE OF EXAM: 10/11/2019 Comparison: 06/15/2012 Clinical History: 74-year-old female abdominal pain Findings: Lung bases are clear. No evidence for free intraperitoneal air. Scattered small air-fluid levels throughout the colon. Mild stool burden. No dilated small bowel. Right-sided pelvic phlebolith. Impression: Scattered small colonic air-fluid levels suggesting liquid stool which could reflect enteritis or ile us. Overall nonobstructive bowel gas pattern at this time. No free air.
[2019-10-11 11:56] LABS: Appearance,Urine Clear (Clear); Bilirubin,Urine Negative (Negative); Blood,Urine Small (Negative); Color,Urine Yellow; Glucose,Urine (UA) Negative (Negative); Hyaline Casts,Urine 11 /lpf (0-2); Ketones,Urine Negative (Negative); Leukocyte Esterase,Urine Negative (Negative); Mucus,Urine Few /hpf; Nitrite,Urine Negative (Negative); Protein,Urine Negative (Negative); RBC,Urine 2 /hpf (0-5); Specific Gravity,Urine 1.014 (1.001-1.035); Squamous Epithelial Cell,Urine 4 /hpf (0-4); Urobilinogen,Urine <2.0 mg/dL (<2.0); WBC,Urine 1 /hpf (0-5)
[2019-10-11 11:58] LABS: Potassium 4.5 mmol/L (3.5-5.1)
[2019-10-11] MEDS ORDERED: traMADol 50 MG STARTER PACK 3 TAB BTL PO STA (13:08)
[2019-10-11 13:34] VITALS: BP 134/63; PULSE 64; RESP 14; TEMP 98.5
== END 2019-10-11 13:40 | disposition home or self-care (01) ==
LOC: EC 10:30
DX: D72.829 Elevated white blood cell count, unspecified (principal); K21.9 Gastro-esophageal reflux disease without esophagitis; I10 Essential (primary) hypertension; F17.200 Nicotine dependence, unspecified, uncomplicated; Z90.49 Acquired absence of other specified parts of digestive tract; Z90.710 Acquired absence of both cervix and uterus; Z79.899 Other long term (current) drug therapy
CPT/HCPCS: 36415; 74018; 80053; 81001; 82150; 83605; 83690; 84484; 85025; 93005; 96361; 96374; 99284

== ENCOUNTER 2019-10-16 10:49 | Day surgery (SDC) | payer MEDICARE, OTHER ==
[2019-10-12 14:34] VITALS: BMI 28.3
[~2019-10-16 10:49] MED LIST changes: -MORPHINE SULFATE 4 MG/ML SYRINGE IVP PRN; -ceFAZolin IN SWFI 2 GM/20 ML SYRINGE IVP ONE
[2019-10-16 11:16] VITALS: TEMP 98.2
[2019-10-16] MEDS ORDERED: PROPOFOL 10 MG/ML 20 ML VIAL IV ONE (11:58)
--- NOTE | 2019-10-16 12:25 | P.PCN ---
Date of Procedure: 10/16/19 Procedure(s) Performed: PREOPERATIVE DIAGNOSIS: Change in bowel habits, epigastric pain POSTOPERATIVE DIAGNOSIS: Erosive gastritis, sliding hiatal hernia, normal colon PROCEDURE: 1. EGD with biopsy 2. Colonoscopy ANESTHESIA: MAC SURGEON: Jose De Jesus Elliott M.D. SPECIMENS: Antrum ENDOSCOPIC PROCEDURE: The patient was on the endoscopy table in the left decubitus position. The Olympus gastroscope was inserted into the oropharynx and passed under direct visualization to the region of the third portion of the duodenum. From that point the scope was slowly withdrawn inspecting all surfaces carefully. There were no neoplastic inflammatory or polypoid lesions throughout the duodenum. The pylorus was widely patent. The stomach was carefully inspected. There was erosive gastritis present. There was some evidence of bleeding in the stomach. No ulcerations or neoplastic changes were seen. A biopsy of the antrum took place to rule out H. pylori. Retroflexion revealed a small hiatal hernia. The esophagus was then carefully examined. There were no neoplastic inflammatory or polypoid lesions throughout the visualized esophagus. The patient was kept on the endoscopy table in the left decubitus position. The Olympus colonoscope was inserted into the anus and passed under direct visualization to the base of the cecum. The appendiceal orifice was visualized. From that point the scope was slowly withdrawn inspecting all surfaces carefully. There were no neoplastic inflammatory or polypoid lesions throughout the cecum, ascending, transverse, descending, sigmoid and rectum. There was no visible diverticulosis noted. Digital rectal examination was normal. The patient was taken to the recovery room in stable condition per anesthesia guidelines. RECOMMENDATIONS: Begin antiacid therapy. Await biopsy results. Monitor bowel habits
[2019-10-16 12:42] VITALS: BP 120/69; PULSE 50; RESP 16
== END 2019-10-16 13:07 | disposition home or self-care (01) ==
LOC: ORWHC2ENDO 10:49
PROVIDERS: ATTEND Surgery
DX: K29.50 Unspecified chronic gastritis without bleeding (principal); K44.9 Diaphragmatic hernia without obstruction or gangrene; K59.09 Other constipation; I10 Essential (primary) hypertension; K21.9 Gastro-esophageal reflux disease without esophagitis; F41.9 Anxiety disorder, unspecified; F17.210 Nicotine dependence, cigarettes, uncomplicated; Z90.49 Acquired absence of other specified parts of digestive tract; Z79.891 Long term (current) use of opiate analgesic; Z79.899 Other long term (current) drug therapy
CPT/HCPCS: 88305; 45378; 43239; J2704

== ENCOUNTER 2019-10-22 11:38 | Emergency (ER) | payer MEDICARE, OTHER ==
[2019-10-22 11:51] VITALS: RESP 18
[2019-10-22] MEDS ORDERED: IOPAMIDOL CONTRAST (ORAL USE) VIAL PO PRN (12:23)
[2019-10-22] MEDS ORDERED: PANTOPRAZOLE 40 MG/10 ML VIAL IVP STA (12:23)
[2019-10-22] MEDS ORDERED: SODIUM CHLORIDE 0.9% 1,000 ML IV STA (12:23)
[2019-10-22] MEDS ORDERED: DICYCLOMINE 10 MG/ML 2 ML AMP IM STA (12:23)
--- NOTE | 2019-10-22 12:26 | ED ---
General Adult HPI - General Chief complaint: Abdominal Pain Stated complaint: abd pain Time Seen by Provider: 10/22/19 12:01 Source: patient, RN notes reviewed, old records reviewed Mode of arrival: ambulatory Limitations: no limitations - History of Present Illness Initial comments: Patient is a pleasant 74-year-old female presenting to the emergency Department with complaints of abdominal discomfort. Symptoms of benign brain for several months. Patient has had a good bowel movement in the last 5 or 6 days. Patient feels full. Patient has abdominal cramping. Patient is tolerating oral intake. No nausea or vomiting. No diarrhea. No fevers. Patient did have colonoscopy less than one week ago. Discomfort is mostly periumbilical. - Related Data Home Medications Medication Instructions Recorded Confirmed Atenolol 25 mg PO BID 12/24/14 10/22/19 Omeprazole 20 mg PO BID 12/24/14 10/22/19 amLODIPine BESYLATE/BENAZEPRIL 1 cap PO DAILY 12/24/14 10/22/19 [Amlodipine-Benazepril 10-20 mg] ALPRAZolam [Xanax] 0.25 mg PO HS PRN 10/11/19 10/22/19 Ondansetron Odt [Zofran Odt] 4 mg PO Q12H PRN 10/11/19 10/22/19 Sucralfate [Carafate] 1 gm PO QID 10/22/19 10/22/19 Previous Rx's Medication Instructions Recorded Dicyclomine [Bentyl] 20 mg PO QID PRN #12 tablet 10/22/19 Allergies Allergy/AdvReac Type Severity Reaction Status Date / Time No Known Allergies Allergy Verified 10/16/19 11:12 Review of Systems ROS Statement: Those systems with pertinent positive or pertinent negative responses have been documented in the HPI. ROS Other: All systems not noted in ROS Statement are negative. Constitutional: Denies: fever Eyes: Denies: eye pain ENT: Denies: ear pain Respiratory: Denies: cough Cardiovascular: Denies: chest pain Endocrine: Denies: fatigue Gastrointestinal: Reports: as per HPI, abdominal pain, constipation. Denies: nausea, vomiting, diarrhea Genitourinary: Denies: dysuria Musculoskeletal: Denies: back pain Skin: Denies: rash Neurological: Denies: weakness Past Medical History Past Medical History: GERD/Reflux, Hyperlipidemia, Hypertension History of Any Multi-Drug Resistant Organisms: None Reported Past Surgical History: Cholecystectomy, Hysterectomy Past Psychological History: Anxiety Smoking Status: Current some day smoker Past Alcohol Use History: None Reported Past Drug Use History: None Reported General Exam Limitations: no limitations General appearance: alert, in no apparent distress Head exam: Present: normocephalic Eye exam: Present: normal appearance Neck exam: Present: normal inspection Respiratory exam: Present: normal lung sounds bilaterally Cardiovascular Exam: Present: regular rate, normal rhythm GI/Abdominal exam: Present: soft, tenderness (Mild to moderate tenderness mostly in the epigastric region), normal bowel sounds. Absent: distended, guarding, rebound, rigid, pulsatile mass Extremities exam: Present: normal inspection Neurological exam: Present: alert Psychiatric exam: Present: normal affect, normal mood Skin exam: Present: normal color Course Vital Signs 10/22/19 10/22/19 11:49 13:52 Temperature 98.1 F Pulse Rate 62 68 Respiratory 18 18 Rate Blood Pressure 121/61 150/65 O2 Sat by Pulse 98 99 Oximetry EKG Findings - EKG Comments: EKG Findings:: Sinus bradycardia 58. CA 150. QRS 82. QT 422. QTC 414. Left axis. Normal QRS. Inverted T waves consistent with QRS complexes Medical Decision Making - Medical Decision Making Patient reevaluated and improved. Abdomen soft and nontender. Patient updated on results and need for follow-up. Case was discussed with Dr. Yeung who has seen patient for this several times previously and done evaluation. He is comfortable with discharge home and will follow-up. Patient also comfortable and agreeable to follow-up. - Lab Data Result diagrams: 10/22/19 12:45 10/22/19 12:45 Lab Results 10/22/19 10/22/19 10/22/19 Range/Units 12:45 12:45 12:45 WBC 11.6 H (3.8-10.6) k/uL RBC 4.85 (3.80-5.40) m/uL Hgb 14.6 (11.4-16.0) gm/dL Hct 44.8 (34.0-46.0) % MCV 92.2 (80.0-100.0) fL MCH 30.0 (25.0-35.0) pg MCHC 32.6 (31.0-37.0) g/dL RDW 13.6 (11.5-15.5) % Plt Count 270 (150-450) k/uL Neutrophils % 79 % Lymphocytes % 16 % Monocytes % 4 % Eosinophils % 1 % Basophils % 0 % Neutrophils # 9.2 H (1.3-7.7) k/uL Lymphocytes # 1.8 (1.0-4.8) k/uL Monocytes # 0.4 (0-1.0) k/uL Eosinophils # 0.1 (0-0.7) k/uL Basophils # 0.1 (0-0.2) k/uL PT 9.7 (9.0-12.0) sec INR 0.9 (<1.2) APTT 22.0 (22.0-30.0) sec Sodium (137-145) mmol/L Potassium (3.5-5.1) mmol/L Chloride (98-107) mmol/L Carbon Dioxide (22-30) mmol/L Anion Gap mmol/L BUN (7-17) mg/dL Creatinine (0.52-1.04) mg/dL Est GFR (CKD-EPI)AfAm (>60 ml/min/1.73 sqM) Est GFR (CKD-EPI)NonAf (>60 ml/min/1.73 sqM) Glucose (74-99) mg/dL Calcium (8.4-10.2) mg/dL Total Bilirubin (0.2-1.3) mg/dL AST (14-36) U/L ALT (4-34) U/L Alkaline Phosphatase (38-126) U/L Creatine Kinase (30-135) U/L Troponin I (0.000-0.034) ng/mL Total Protein (6.3-8.2) g/dL Albumin (3.5-5.0) g/dL Amylase (30-110) U/L Lipase (23-300) U/L Urine Color Yellow Urine Appearance Cloudy H (Clear) Urine pH 8.0 (5.0-8.0) Ur Specific [place] 1.000 L (1.001-1.035) Urine Protein Negative (Negative) Urine Glucose (UA) Negative (Negative) Urine Ketones Negative (Negative) Urine Blood Moderate (Negative) Urine Nitrite Negative (Negative) Urine Bilirubin Negative (Negative) Urine Urobilinogen <2.0 (<2.0) mg/dL Ur Leukocyte Esterase Small (Negative) Urine RBC 2 (0-5) /hpf Urine WBC 2 (0-5) /hpf Ur Squamous Epith Cells 8 H (0-4) /hpf Urine Bacteria Occasional H (None) /hpf Urine Mucus Few H (None) /hpf 10/22/19 10/22/19 Range/Units 12:45 12:45 WBC (3.8-10.6) k/uL RBC (3.80-5.40) m/uL Hgb (11.4-16.0) gm/dL Hct (34.0-46.0) % MCV (80.0-100.0) fL MCH (25.0-35.0) pg MCHC (31.0-37.0) g/dL RDW (11.5-15.5) % Plt Count (150-450) k/uL Neutrophils % % Lymphocytes % % Monocytes % % Eosinophils % % Basophils % % Neutrophils # (1.3-7.7) k/uL Lymphocytes # (1.0-4.8) k/uL Monocytes # (0-1.0) k/uL Eosinophils # (0-0.7) k/uL Basophils # (0-0.2) k/uL PT (9.0-12.0) sec INR (<1.2) APTT (22.0-30.0) sec Sodium 140 (137-145) mmol/L Potassium 3.8 (3.5-5.1) mmol/L Chloride 104 (98-107) mmol/L Carbon Dioxide 29 (22-30) mmol/L Anion Gap 7 mmol/L BUN 14 (7-17) mg/dL Creatinine 0.60 (0.52-1.04) mg/dL Est GFR (CKD-EPI)AfAm >90 (>60 ml/min/1.73 sqM) Est GFR (CKD-EPI)NonAf >90 (>60 ml/min/1.73 sqM) Glucose 94 (74-99) mg/dL Calcium 9.6 (8.4-10.2) mg/dL Total Bilirubin 0.6 (0.2-1.3) mg/dL AST 26 (14-36) U/L ALT 19 (4-34) U/L Alkaline Phosphatase 121 (38-126) U/L Creatine Kinase 39 (30-135) U/L Troponin I <0.012 (0.000-0.034) ng/mL Total Protein 7.8 (6.3-8.2) g/dL Albumin 4.5 (3.5-5.0) g/dL Amylase 47 (30-110) U/L Lipase 73 (23-300) U/L Urine Color Urine Appearance (Clear) Urine pH (5.0-8.0) Ur Specific [place] (1.001-1.035) Urine Protein (Negative) Urine Glucose (UA) (Negative) Urine Ketones (Negative) Urine Blood (Negative) Urine Nitrite (Negative) Urine Bilirubin (Negative) Urine Urobilinogen (<2.0) mg/dL Ur Leukocyte Esterase (Negative) Urine RBC (0-5) /hpf Urine WBC (0-5) /hpf Ur Squamous Epith Cells (0-4) /hpf Urine Bacteria (None) /hpf Urine Mucus (None) /hpf - Radiology Data Radiology results: image reviewed (Computed tomography scan of abdomen and p regina reveals no acute process) Disposition Clinical Impression: Abdominal pain Disposition: HOME SELF-CARE Condition: Stable Instructions (If sedation given, give patient instructions): Abdominal Pain (ED) Additional Instructions: Please follow-up with primary care physician, Dr. Yeung this week. Return for increased pain, vomiting, fevers, worsening or changing symptoms or other concerns. Prescription sent to [facility] pharmacy Prescriptions: Dicyclomine [Bentyl] 20 mg PO QID PRN #12 tablet PRN Reason: Pain Is patient prescribed a controlled substance at d/c from ED?: No Referrals: Gordy Yeung DO [Primary Care Provider] - 1-2 days Time of Disposition: 15:00
[2019-10-22 13:08] LABS: Basophils # (A) 0.1 k/uL (0-0.2); Basophils % (A) 0 %; Eosinophils # (A) 0.1 k/uL (0-0.7); Eosinophils % (A) 1 %; HCT 44.8 % (34.0-46.0); HGB 14.6 gm/dL (11.4-16.0); Lymphocytes # (A) 1.8 k/uL (1.0-4.8); Lymphocytes % (A) 16 %; MCHC 32.6 g/dL (31.0-37.0); MCV 92.2 fL (80.0-100.0); Monocytes # (A) 0.4 k/uL (0-1.0); Monocytes % (A) 4 %; Neutrophils # (A) 9.2 k/uL (1.3-7.7); Neutrophils % (A) 79 %; Platelet Count 270 k/uL (150-450); RBC 4.85 m/uL (3.80-5.40); RDW 13.6 % (11.5-15.5); WBC 11.6 k/uL (3.8-10.6)
[2019-10-22 13:24] LABS: ALT 19 U/L (4-34); AST 26 U/L (14-36); African American GFR (CKD) >90 (>60 ml/min/1.73 sqM); Albumin 4.5 g/dL (3.5-5.0); Alkaline Phosphatase 121 U/L (38-126); Amylase 47 U/L (30-110); Anion Gap 7 mmol/L; Blood Urea Nitrogen 14 mg/dL (7-17); Calcium 9.6 mg/dL (8.4-10.2); Carbon Dioxide 29 mmol/L (22-30); Chloride 104 mmol/L (98-107); Creatine Kinase 39 U/L (30-135); Glucose 94 mg/dL (74-99); Non-African American GFR(CKD) >90 (>60 ml/min/1.73 sqM); Potassium 3.8 mmol/L (3.5-5.1); Sodium 140 mmol/L (137-145); Total Bilirubin 0.6 mg/dL (0.2-1.3); Total Protein 7.8 g/dL (6.3-8.2)
[2019-10-22 13:30] LABS: Appearance,Urine Cloudy (Clear); Bilirubin,Urine Negative (Negative); Blood,Urine Moderate (Negative); Color,Urine Yellow; Glucose,Urine (UA) Negative (Negative); Ketones,Urine Negative (Negative); Leukocyte Esterase,Urine Small (Negative); Nitrite,Urine Negative (Negative); Protein,Urine Negative (Negative); Urobilinogen,Urine <2.0 mg/dL (<2.0)
[2019-10-22 13:32] LABS: Bacteria,Urine Occasional /hpf; Mucus,Urine Few /hpf; RBC,Urine 2 /hpf (0-5); Squamous Epithelial Cell,Urine 8 /hpf (0-4); WBC,Urine 2 /hpf (0-5)
[2019-10-22 13:46] LABS: INR 0.9 (<1.2); Prothrombin Time 9.7 sec (9.0-12.0)
[2019-10-22 13:54] VITALS: PULSE 68
--- NOTE | 2019-10-22 14:34 | CT ---
EXAMINATION TYPE: CT abdomen pelvis w con DATE OF EXAM: 10/22/2019 COMPARISON: 08/28/2019 INDICATION: Abdominal pain DLP: 970.3 mGycm, Automated exposure control for dose reduction was used. CONTRAST: 100 ml mL of Isovue 300. Study performed without Oral Contrast TECHNIQUE: Axial images were obtained from above the diaphragm to the pubic rami in the axial plane a t 5 mm thick sections. Reconstructed images are reviewed on the computer in the coronal plane. FINDINGS: Limited CT sections are obtained the lung bases. The lung bases are clear. Coronary artery calcific ation is present. CT ABDOMEN: Liver: Normal Spleen: Normal Pancreas: Normal Adrenal glands: The adrenal glands are normal. Gallbladder: Normal Kidneys: No masses are evident. No hydronephrosis is present. No cysts are present. Delayed images were obtained through the kidneys, which remain unremarkable. Aorta: Normal Inferior vena cava: Normal. CT PELVIS: Loops of bowel within the abdomen and pelvis are normal. Small bowel loops distended with oral co ntrast are unremarkable. No contrast is within the colon. Bowel evaluation is somewhat limited. Appendix: Not identified. No suspicious inflammatory changes or dilated tubular structures are eviden t. Urinary bladder: Normal. Genitourinary structures: Uterus and ovaries are not identified. Osseous structures: No suspicious lytic or sclerotic lesions. Facet changes are within the lower lumb ar spine. IMPRESSIONS: 1. No suspicious acute abnormality to account for abdominal pain.
[2019-10-22 15:21] VITALS: BP 145/86; TEMP 97.9
== END 2019-10-22 15:20 | disposition home or self-care (01) ==
LOC: EC 11:38
DX: R10.9 Unspecified abdominal pain (principal); F41.9 Anxiety disorder, unspecified; K21.9 Gastro-esophageal reflux disease without esophagitis; I10 Essential (primary) hypertension; F17.200 Nicotine dependence, unspecified, uncomplicated; Z79.899 Other long term (current) drug therapy; Z90.49 Acquired absence of other specified parts of digestive tract
CPT/HCPCS: 36415; 93005; 80053; 82150; 82550; 83690; 84484; 85025; 85610; 85730; 81001; 74177; 99285; 96374; 96372; 96361 ×2; J0500; C9113; Q9967

== ENCOUNTER 2019-11-24 20:05 | Emergency (ER) | payer MEDICARE, OTHER ==
[2019-11-24 20:18] VITALS: TEMP 98.7
--- NOTE | 2019-11-24 20:20 | ED ---
Abdominal Pain HPI - General Chief Complaint: Abdominal Pain Stated Complaint: Abdominal pain Time Seen by Provider: 11/24/19 20:18 Source: patient, family Mode of arrival: wheelchair Limitations: no limitations - History of Present Illness Initial Comments: Patient is 74-year-old female presenting to emergency Department with a chief complaint of abdominal pain. Patient states the abdominal pain is located in the umbilical region and has been ongoing for about 1-1/2 months. States it did go away but has now has returned. Patient also reports yesterday she had nausea and 1 episode not bilious, nonbloody vomiting. Patient denies any vaginal uri nary symptoms. Denies any hematuria, hematochezia or melena. Denies any chest pain or shortness of breath. States she has been battling depression and was started on Zoloft 3 days ago by the primary care physician. Patient states she does not like the medication and has caused to have the abdominal pain. Although, she has been taking it regularly over the last 3 days. States she has been having difficulty with sleeping over the last few weeks and the medication is not helping with that. Denies any suicidal, homicidal thoughts or ideations. - Related Data Home Medications Medication Instructions Recorded Confirmed Omeprazole 20 mg PO BID 12/24/14 10/22/19 amLODIPine BESYLATE/BENAZEPRIL 1 cap PO DAILY 12/24/14 10/22/19 [Amlodipine-Benazepril 10-20 mg] atenoloL [Atenolol] 25 mg PO BID 12/24/14 10/22/19 ALPRAZolam [Xanax] 0.25 mg PO HS PRN 10/11/19 10/22/19 Ondansetron Odt [Zofran Odt] 4 mg PO Q12H PRN 10/11/19 10/22/19 Sucralfate [Carafate] 1 gm PO QID 10/22/19 10/22/19 Previous Rx's Medication Instructions Recorded Dicyclomine [Bentyl] 20 mg PO QID PRN #12 tablet 10/22/19 Allergies Allergy/AdvReac Type Severity Reaction Status Date / Time No Known Allergies Allergy Verified 11/24/19 20:18 Review of Systems ROS Statement: Those systems with pertinent positive or pertinent negative responses have been documented in the HPI. ROS Other: All systems not noted in ROS Statement are negative. Past Medical History Past Medical History: GERD/Reflux, Hyperlipidemia, Hypertension History of Any Multi-Drug Resistant Organisms: None Reported Past Surgical History: Cholecystectomy, Hysterectomy Past Psychological History: Anxiety Smoking Status: Former smoker Past Alcohol Use History: None Reported Past Drug Use History: None Reported General Exam Limitations: no limitations General appearance: alert, in no apparent distress Head exam: Present: atraumatic, normocephalic, normal inspection Eye exam: Present: normal appearance, PERRL, EOMI Pupils: Present: normal accommodation ENT exam: Present: normal exam, normal oropharynx, mucous membranes moist, TM's normal bilaterally, normal external ear exam Neck exam: Present: normal inspection, full ROM. Absent: tenderness Respiratory exam: Present: normal lung sounds bilaterally. Absent: respiratory distress, wheezes Cardiovascular Exam: Present: regular rate, normal rhythm, normal heart sounds GI/Abdominal exam: Present: soft, tenderness (Mild, umbilical tenderness.), normal bowel sounds. Absent: distended, guarding, rebound, rigid, bruit, pulsatile mass, hernia Extremities exam: Present: normal inspection, full ROM, normal capillary refill Back exam: Present: normal inspection, full ROM. Absent: tenderness Neurological exam: Present: alert, oriented X3, normal gait Psychiatric exam: Present: normal affect, normal mood Skin exam: Present: warm, dry, intact, normal color Course Vital Signs 11/24/19 11/24/19 20:16 23:28 Temperature 98.7 F Pulse Rate 83 86 Respiratory 16 18 Rate Blood Pressure 133/74 146/70 O2 Sat by Pulse 97 98 Oximetry Medical Decision Making - Medical Decision Making Patient is 74-year-old female presenting to emergency Department with a chief complaint of abdominal pain. Patient is concerned the umbilical abdominal pain is secondary to her taking Zoloft for depression. She said issues with the umbilical pain for about 1.5 months but has been exacerbated over the last 3 days after she took her Zoloft. No chest pressures of breath. No homicidal suicidal thoughts or ideations. CBC shows mild leukocytosis of 11. CMP reveals elevated BUN which is suspect is secondary to her decreased appetite and fluid intake. Patient was given a bolus fluid and antiemetics. On reevaluation patie nt reports improvement in symptoms. UA did reveal small amounts of red blood cells and blood in the urine. CT of abdomen and pelvis revealed degenerative first degree L-5 to S1 is spondylolysis. No acute a munoz within the abdomen or pelvis. Patient is to follow up with her primary care within the next few days. No chest pain shortness of breath. Return parameters were thoroughly discussed with patient is a worsening agreeable. Case discussed with physician. - Lab Data Result diagrams: 11/24/19 21:09 11/24/19 21:09 Lab Results 11/24/19 11/24/19 11/24/19 Range/Units 21:09 21:09 21:09 WBC 11.4 H (3.8-10.6) k/uL RBC 4.72 (3.80-5.40) m/uL Hgb 14.3 (11.4-16.0) gm/dL Hct 43.2 (34.0-46.0) % MCV 91.5 (80.0-100.0) fL MCH 30.3 (25.0-35.0) pg MCHC 33.1 (31.0-37.0) g/dL RDW 13.5 (11.5-15.5) % Plt Count 285 (150-450) k/uL Neutrophils % 82 % Lymphocytes % 13 % Monocytes % 4 % Eosinophils % 0 % Basophils % 0 % Neutrophils # 9.3 H (1.3-7.7) k/uL Lymphocytes # 1.4 (1.0-4.8) k/uL Monocytes # 0.5 (0-1.0) k/uL Eosinophils # 0.0 (0-0.7) k/uL Basophils # 0.0 (0-0.2) k/uL Sodium 141 (137-145) mmol/L Potassium 3.5 (3.5-5.1) mmol/L Chloride 109 H (98-107) mmol/L Carbon Dioxide 23 (22-30) mmol/L Anion Gap 9 mmol/L BUN 21 H (7-17) mg/dL Creatinine 0.68 (0.52-1.04) mg/dL Est GFR (CKD-EPI)AfAm >90 (>60 ml/min/1.73 sqM) Est GFR (CKD-EPI)NonAf 86 (>60 ml/min/1.73 sqM) Glucose 136 H (74-99) mg/dL Calcium 9.7 (8.4-10.2) mg/dL Total Bilirubin 0.4 (0.2-1.3) mg/dL AST 20 (14-36) U/L ALT 17 (4-34) U/L Alkaline Phosphatase 148 H (38-126) U/L Total Protein 7.1 (6.3-8.2) g/dL Albumin 4.3 (3.5-5.0) g/dL Lipase 71 (23-300) U/L Urine Color Yellow Urine Appearance Cloudy H (Clear) Urine pH 6.0 (5.0-8.0) Ur Specific [place] 1.016 (1.001-1.035) Urine Protein Negative (Negative) Urine Glucose (UA) Negative (Negative) Urine Ketones Negative (Negative) Urine Blood Small H (Negative) Urine Nitrite Negative (Negative) Urine Bilirubin Negative (Negative) Urine Urobilinogen <2.0 (<2.0) mg/dL Ur Leukocyte Esterase Negative (Negative) Urine RBC 15 H (0-5) /hpf Urine WBC 3 (0-5) /hpf Ur Squamous Epith Cells 4 (0-4) /hpf Amorphous Sediment Rare H (None) /hpf Urine Bacteria Rare H (None) /hpf Hyaline Casts 17 H (0-2) /lpf Urine Mucus Many H (None) /hpf Disposition Clinical Impression: Abdominal pain Disposition: HOME SELF-CARE Condition: Stable Instructions (If sedation given, give patient instructions): Abdominal Pain (ED) Additional Instructions: Follow-up with your primary care physician. Take prescribed medication as directed. Return to emergency department if symptoms worsen. Is patient prescribed a controlled substance at d/c from ED?: No Referrals: Gordy Yeung DO [Primary Care Provider] - 1-2 days Time of Disposition: 00:01
[2019-11-24] MEDS ORDERED: PANTOPRAZOLE 40 MG/10 ML VIAL IVP STA (20:38)
[2019-11-24] MEDS ORDERED: ONDANSETRON 4 MG/2 ML VIAL IVP STA (20:38)
[2019-11-24] MEDS ORDERED: SODIUM CHLORIDE 0.9% 1,000 ML IV STA (20:38)
[2019-11-24] MEDS ORDERED: ACETAMINOPHEN TAB 325 MG TAB PO STA (20:39)
[2019-11-24 21:24] LABS: Basophils % (A) 0 %; Eosinophils % (A) 0 %; HCT 43.2 % (34.0-46.0); HGB 14.3 gm/dL (11.4-16.0); Lymphocytes # (A) 1.4 k/uL (1.0-4.8); Lymphocytes % (A) 13 %; MCH 30.3 pg (25.0-35.0); MCHC 33.1 g/dL (31.0-37.0); MCV 91.5 fL (80.0-100.0); Mean Platelet Volume 6.9; Monocytes # (A) 0.5 k/uL (0-1.0); Monocytes % (A) 4 %; Neutrophils # (A) 9.3 k/uL (1.3-7.7); Neutrophils % (A) 82 %; Platelet Count 285 k/uL (150-450); RBC 4.72 m/uL (3.80-5.40); RDW 13.5 % (11.5-15.5); WBC 11.4 k/uL (3.8-10.6)
[2019-11-24 21:27] LABS: Amorphous Sediment,Urine Rare /hpf; Appearance,Urine Cloudy (Clear); Bacteria,Urine Rare /hpf; Bilirubin,Urine Negative (Negative); Blood,Urine Small (Negative); Color,Urine Yellow; Glucose,Urine (UA) Negative (Negative); Hyaline Casts,Urine 17 /lpf (0-2); Ketones,Urine Negative (Negative); Leukocyte Esterase,Urine Negative (Negative); Mucus,Urine Many /hpf; Nitrite,Urine Negative (Negative); Protein,Urine Negative (Negative); RBC,Urine 15 /hpf (0-5); Specific Gravity,Urine 1.016 (1.001-1.035); Squamous Epithelial Cell,Urine 4 /hpf (0-4); Urobilinogen,Urine <2.0 mg/dL (<2.0); WBC,Urine 3 /hpf (0-5)
[2019-11-24 21:54] LABS: ALT 17 U/L (4-34); AST 20 U/L (14-36); African American GFR (CKD) >90 (>60 ml/min/1.73 sqM); Albumin 4.3 g/dL (3.5-5.0); Alkaline Phosphatase 148 U/L (38-126); Anion Gap 9 mmol/L; Blood Urea Nitrogen 21 mg/dL (7-17); Calcium 9.7 mg/dL (8.4-10.2); Carbon Dioxide 23 mmol/L (22-30); Chloride 109 mmol/L (98-107); Glucose 136 mg/dL (74-99); Non-African American GFR(CKD) 86 (>60 ml/min/1.73 sqM); Potassium 3.5 mmol/L (3.5-5.1); Sodium 141 mmol/L (137-145); Total Bilirubin 0.4 mg/dL (0.2-1.3); Total Protein 7.1 g/dL (6.3-8.2)
--- NOTE | 2019-11-24 22:50 | CT ---
EXAMINATION TYPE: CT abdomen pelvis w con DATE OF EXAM: 11/24/2019 COMPARISON: 10/22/2019 HISTORY: epigastric abd pain CT DLP: 909.9 mGycm Automated exposure control for dose reduction was used. CONTRAST: Performed with IV Contrast, patient injected with 100 mL of Isovue 300. The lung bases are clear. There is no pleural effusion. Heart size is normal. There is no pericardial effusion. Stomach is intact. Liver spleen pancreas appear normal. Bile ducts are not dilated. Gallbl adder appears absent. There is no adrenal mass. Kidneys show satisfactory contrast opacification. There is no hydronephrosi s. There is normal excretion on the delayed images. Ureters are not dilated. There is no retroperiton eal adenopathy. Bladder distends smoothly. There is no inguinal hernia. There is no free fluid in the pelvis. There is no evidence of a pelvic mass. There is hysterectomy. There is no mesenteric edema. There is no ascites or free air. There is no bowel obstruction. Appendix is not seen. There is no sig n of thickened appendix. There is 5 mm anterior subluxation of L5 in relation S1. I see no spondyloly sis. There is no lumbar compression fracture. Bony pelvis is intact. IMPRESSION: There is a degenerative first-degree L5-S1 spondylolisthesis. No lumbar compression fracture. No acute abnormality within the abdomen pelvis. No adverse change compared to old exam.
[2019-11-24 23:30] VITALS: RESP 18
[2019-11-25 00:25] VITALS: BP 138/79; PULSE 85
== END 2019-11-25 00:28 | disposition home or self-care (01) ==
LOC: EC 20:05
DX: M47.817 Spondylosis without myelopathy or radiculopathy, lumbosacral region (principal); R10.33 Periumbilical pain; I10 Essential (primary) hypertension; K21.9 Gastro-esophageal reflux disease without esophagitis; D72.829 Elevated white blood cell count, unspecified; R79.89 Other specified abnormal findings of blood chemistry; R31.9 Hematuria, unspecified; F41.9 Anxiety disorder, unspecified; F32.9 Major depressive disorder, single episode, unspecified; Z79.899 Other long term (current) drug therapy; Z90.49 Acquired absence of other specified parts of digestive tract; Z87.891 Personal history of nicotine dependence; Z90.710 Acquired absence of both cervix and uterus
CPT/HCPCS: 36415; 93005; 80053; 83690; 85025; 81001; 74177; 99284; 96374; 96375; 96361; J2405; C9113; Q9967

== ENCOUNTER 2019-12-08 12:06 | Observation (INO) | payer MEDICARE, OTHER ==
[2019-12-08] MEDS ORDERED: SODIUM CHLORIDE 0.9% 500 ML 500 ML IV STA (12:27)
[2019-12-08] MEDS ORDERED: PANTOPRAZOLE 40 MG/10 ML VIAL IVP STA (12:27)
[2019-12-08] MEDS ORDERED: SODIUM CHLORIDE 0.9% 1,000 ML IV STA (12:27)
--- NOTE | 2019-12-08 12:55 | ED ---
Abdominal Pain HPI - General Chief Complaint: Abdominal Pain Stated Complaint: Abd Pain, Rectal Bleeding Time Seen by Provider: 12/08/19 12:26 Source: patient, RN notes reviewed, old records reviewed Mode of arrival: wheelchair Limitations: no limitations - History of Present Illness Initial Comments: This is a 74-year-old female DF for evaluation multiple complaints patient complaining of left-sided abdominal pain as well as blood in her stool. Patient denies history of blood thinners. She does have a colonoscopy within the last 2 months she believes that it was fairly normal. Patient does have history of cholecystectomy and hysterectomy. MD Complaint: abdominal pain -: days(s) Location: diffuse, LLQ Radiation: LLQ Migration to: no migration Severity: moderate Severity scale (1-10): 4 Quality: cramping, aching Consistency: constant Improves With: nothing Worsens With: nothing Associated Symptoms: nausea - Related Data Home Medications Medication Instructions Recorded Confirmed Omeprazole 20 mg PO BID 12/24/14 10/22/19 amLODIPine BESYLATE/BENAZEPRIL 1 cap PO DAILY 12/24/14 10/22/19 [Amlodipine-Benazepril 10-20 mg] atenoloL [Atenolol] 25 mg PO BID 12/24/14 10/22/19 ALPRAZolam [Xanax] 0.25 mg PO HS PRN 10/11/19 10/22/19 Ondansetron Odt [Zofran Odt] 4 mg PO Q12H PRN 10/11/19 10/22/19 Sucralfate [Carafate] 1 gm PO QID 10/22/19 10/22/19 Previous Rx's Medication Instructions Recorded Dicyclomine [Bentyl] 20 mg PO QID PRN #12 tablet 10/22/19 Allergies Allergy/AdvReac Type Severity Reaction Status Date / Time No Known Allergies Allergy Verified 11/24/19 20:18 Review of Systems ROS Statement: Those systems with pertinent positive or pertinent negative responses have been documented in the HPI. ROS Other: All systems not noted in ROS Statement are negative. Past Medical History Past Medical History: GERD/Reflux, Hyperlipidemia, Hypertension History of Any Multi-Drug Resistant Organisms: None Reported Past Surgical History: Cholecystectomy, Hysterectomy Past Psychological History: Anxiety Smoking Status: Former smoker Past Alcohol Use History: None Reported Past Drug Use History: None Reported General Exam Limitations: no limitations General appearance: alert, in no apparent distress Head exam: Present: atraumatic, normocephalic, normal inspection Eye exam: Present: normal appearance, PERRL, EOMI. Absent: scleral icterus, c onjunctival injection, periorbital swelling ENT exam: Present: normal exam, mucous membranes moist Neck exam: Present: normal inspection. Absent: tenderness, meningismus, lymphadenopathy Respiratory exam: Present: normal lung sounds bilaterally. Absent: respiratory distress, wheezes, rales, rhonchi, stridor Cardiovascular Exam: Present: regular rate, normal rhythm, normal heart sounds. Absent: systolic murmur, diastolic murmur, rubs, gallop, clicks GI/Abdominal exam: Present: soft, normal bowel sounds. Absent: distended, tenderness, guarding, rebound, rigid Extremities exam: Present: normal inspection, full ROM, normal capillary refill. Absent: tenderness, pedal edema, joint swelling, calf tenderness Back exam: Present: normal inspection Neurological exam: Present: alert, oriented X3, CN II-XII intact Psychiatric exam: Present: normal affect, normal mood Skin exam: Present: warm, dry, intact, normal color. Absent: rash Course Vital Signs 12/08/19 12/08/19 12:16 13:37 Temperature 98.0 F 98.1 F Pulse Rate 71 66 Respiratory 18 17 Rate Blood Pressure 153/86 141/68 O2 Sat by Pulse 99 100 Oximetry - Reevaluation(s) Reevaluation #1: 12/08/19 12:55 Medical records reviewed Reevaluation #2: 12/08/19 14:33 Patient still with abdominal pain and did have minimal blood in the stool here in the ER Medical Decision Making - Medical Decision Making 44 female with abdominal pain and bloody stools, patient be admitted to trending hemoglobin for GI bleeding and pain control - Lab Data Result diagrams: 12/08/19 12:49 12/08/19 12:49 Lab Results 12/08/19 12/08/19 12/08/19 Range/Units 12:49 12:49 12:49 WBC 10.2 (3.8-10.6) k/uL RBC 4.54 (3.80-5.40) m/uL Hgb 13.9 (11.4-16.0) gm/dL Hct 41.6 (34.0-46.0) % MCV 91.6 (80.0-100.0) fL MCH 30.7 (25.0-35.0) pg MCHC 33.5 (31.0-37.0) g/dL RDW 13.8 (11.5-15.5) % Plt Count 277 (150-450) k/uL Neutrophils % 79 % Lymphocytes % 14 % Monocytes % 4 % Eosinophils % 1 % Basophils % 0 % Neutrophils # 8.1 H (1.3-7.7) k/uL Lymphocytes # 1.4 (1.0-4.8) k/uL Monocytes # 0.4 (0-1.0) k/uL Eosinophils # 0.1 (0-0.7) k/uL Basophils # 0.0 (0-0.2) k/uL Sodium 138 (137-145) mmol/L Potassium 3.9 (3.5-5.1) mmol/L Chloride 107 (98-107) mmol/L Carbon Dioxide 25 (22-30) mmol/L Anion Gap 6 mmol/L BUN 18 H (7-17) mg/dL Creatinine 0.56 (0.52-1.04) mg/dL Est GFR (CKD-EPI)AfAm >90 (>60 ml/min/1.73 sqM) Est GFR (CKD-EPI)NonAf >90 (>60 ml/min/1.73 sqM) Glucose 100 H (74-99) mg/dL Plasma Lactic Acid Sudhakar 0.9 (0.7-2.0) mmol/L Calcium 9.6 (8.4-10.2) mg/dL Magnesium 2.0 (1.6-2.3) mg/dL Total Bilirubin 0.9 (0.2-1.3) mg/dL AST 29 (14-36) U/L ALT 17 (4-34) U/L Alkaline Phosphatase 107 (38-126) U/L Total Protein 7.0 (6.3-8.2) g/dL Albumin 4.1 (3.5-5.0) g/dL Amylase 40 (30-110) U/L Lipase 72 (23-300) U/L Blood Type Blood Type Recheck Bld Type Recheck Status Antibody Screen Spec Expiration Date 08/08/20 Range/Units 12:49 WBC (3.8-10.6) k/uL RBC (3.80-5.40) m/uL Hgb (11.4-16.0) gm/dL Hct (34.0-46.0) % MCV (80.0-100.0) fL MCH (25.0-35.0) pg MCHC (31.0-37.0) g/dL RDW (11.5-15.5) % Plt Count (150-450) k/uL Neutrophils % % Lymphocytes % % Monocytes % % Eosinophils % % Basophils % % Neutrophils # (1.3-7.7) k/uL Lymphocytes # (1.0-4.8) k/uL Monocytes # (0-1.0) k/uL Eosinophils # (0-0.7) k/uL Basophils # (0-0.2) k/uL Sodium (137-145) mmol/L Potassium (3.5-5.1) mmol/L Chloride (98-107) mmol/L Carbon Dioxide (22-30) mmol/L Anion Gap mmol/L BUN (7-17) mg/dL Creatinine (0.52-1.04) mg/dL Est GFR (CKD-EPI)AfAm (>60 ml/min/1.73 sqM) Est GFR (CKD-EPI)NonAf (>60 ml/min/1.73 sqM) Glucose (74-99) mg/dL Plasma Lactic Acid Sudhakar (0.7-2.0) mmol/L Calcium (8.4-10.2) mg/dL Magnesium (1.6-2.3) mg/dL Total Bilirubin (0.2-1.3) mg/dL AST (14-36) U/L ALT (4-34) U/L Alkaline Phosphatase (38-126) U/L Total Protein (6.3-8.2) g/dL Albumin (3.5-5.0) g/dL Amylase (30-110) U/L Lipase (23-300) U/L Blood Type O Negative Blood Type Recheck No Previous Record Bld Type Recheck Status CABO Indicated Antibody Screen NEGATIVE Spec Expiration Date 12/11/2019 - 6109 - Radiology Data Radiology results: report reviewed (CT head and pelvis negative for acute disease), image reviewed Disposition Clinical Impression: Abdominal pain, GI bleed Disposition: ADMITTED IP TO THIS [facility] Condition: Fair Is patient prescribed a controlled substance at d/c from ED?: No Referrals: Gordy Yeung DO [Primary Care Provider] - 1-2 days
[2019-12-08 13:03] LABS: Basophils % (A) 0 %; Eosinophils # (A) 0.1 k/uL (0-0.7); Eosinophils % (A) 1 %; HCT 41.6 % (34.0-46.0); HGB 13.9 gm/dL (11.4-16.0); Lymphocytes # (A) 1.4 k/uL (1.0-4.8); Lymphocytes % (A) 14 %; MCH 30.7 pg (25.0-35.0); MCHC 33.5 g/dL (31.0-37.0); MCV 91.6 fL (80.0-100.0); Mean Platelet Volume 6.9; Monocytes # (A) 0.4 k/uL (0-1.0); Monocytes % (A) 4 %; Neutrophils # (A) 8.1 k/uL (1.3-7.7); Neutrophils % (A) 79 %; Platelet Count 277 k/uL (150-450); RBC 4.54 m/uL (3.80-5.40); RDW 13.8 % (11.5-15.5); WBC 10.2 k/uL (3.8-10.6)
[2019-12-08 13:11] LABS: ALT 17 U/L (4-34); AST 29 U/L (14-36); African American GFR (CKD) >90 (>60 ml/min/1.73 sqM); Albumin 4.1 g/dL (3.5-5.0); Alkaline Phosphatase 107 U/L (38-126); Amylase 40 U/L (30-110); Anion Gap 6 mmol/L; Blood Urea Nitrogen 18 mg/dL (7-17); Calcium 9.6 mg/dL (8.4-10.2); Carbon Dioxide 25 mmol/L (22-30); Chloride 107 mmol/L (98-107); Glucose 100 mg/dL (74-99); Non-African American GFR(CKD) >90 (>60 ml/min/1.73 sqM); Potassium 3.9 mmol/L (3.5-5.1); Sodium 138 mmol/L (137-145); Total Bilirubin 0.9 mg/dL (0.2-1.3)
--- NOTE | 2019-12-08 14:10 | CT ---
EXAMINATION TYPE: CT abdomen pelvis w con DATE OF EXAM: 12/08/2019 COMPARISON: 11/24/2019 HISTORY: pain, rectal bleeding CT DLP: 782.9 mGycm Automated exposure control for dose reduction was used. CONTRAST: CT scan of the abdomen pelvis is performed with IV Contrast, patient injected with 100 mL of Isovue 3 00. FINDINGS- LUNG BASES-2 mm subpleural nodule right lower lobe. Linear change right lung compatible with atelecta sis.. LIVER/GB-mild intrahepatic biliary ductal dilation centrally. Gallbladder not seen correlate for prev ious cholecystectomy. Tiny hypodensity peripheral margin of the right lobe of the liver image 92 smal l to characterize measuring 2 mm. Likely is a degree of localized fatty infiltration within the left lobe of the liver axial image 12.. PANCREAS- No gross abnormality is seen. SPLEEN- No gross abnormality is seen. ADRENALS- No gross abnormality is seen. KIDNEYS/BLADDER- no hydronephrosis or nephrolithiasis. Tiny less than 5 mm hypodensities within each kidney too small to characterize. BOWEL-bowel gas pattern nonspecific. There is a small hiatal hernia. Motion artifact limits the exam. . Assessment of the colon is limited due to lack of contrast, incomplete distention and extensive ret ained fecal debris. If there is concern for mucosal lesion correlate with direct visualization. LYMPH NODES- No greater than 1cm abdominal or pelvic lymph nodes areappreciated. OSSEOUS STRUCTURES-hypertrophic and degenerative changes of the spine noted. Grade 1 anterolisthesis L5 on S1 with severe facet arthropathy.. OTHER- aorta of normal caliber. Atherosclerotic change is seen. No free fluid. Bilateral fat-contain ing inguinal hernias. Correlate for previous hysterectomy. 5 mm subcutaneous nodule left anterior sub cutaneous tissues at the level of the hip most likely related to small lymph node. IMPRESSION- 1. Nonspecific abdomen. No diagnostic evidence of obstruction. 2. 2 mm subpleural nodule right lower lobe too small to characterize. This could be followed on a 6 m onth basis to confirm stability.
[2019-12-08] MEDS ORDERED: LORazepam 2 MG/ML INJ IV PRN (14:35)
[2019-12-08] MEDS ORDERED: MORPHINE SULFATE 4 MG/ML SYRINGE IVP PRN (14:35)
[2019-12-08] MEDS ORDERED: ONDANSETRON 4 MG/2 ML VIAL IVP PRN (14:35)
[2019-12-08] MEDS ORDERED: ONDANSETRON 4 MG/2 ML VIAL IVP STA (14:35)
[2019-12-08] MEDS ORDERED: MORPHINE SULFATE 4 MG/ML SYRINGE IVP STA (14:35)
[2019-12-08 15:05] LABS: Partial Thromboplastin Time 22.3 sec (22.0-30.0)
[2019-12-08] MEDS ORDERED: ALPRAZolam 0.5 MG TAB PO PRN (18:13)
[2019-12-08] MEDS ORDERED: TEMAZEPAM 15 MG CAP PO PRN (18:36)
[2019-12-08] MEDS: CITALOPRAM HYDROBROMIDE 10 MG TAB PO SCH (19:46)
[2019-12-08] MEDS: atenoloL 25 MG TAB PO SCH (20:56)
--- NOTE | 2019-12-08 21:57 | P.HPIM ---
History of Present Illness H&P Date: 12/08/19 Chief Complaint: Blood in the stool Ms. Pennington is a 74-year-old female with a past medical history of hypertension, hyperlipidemia, GERD, who follows with Dr. Gordy Yeung as outpatient, coming in with a chief complaint of pain. Patient states that she has been having blood in her stool that happened couple of x3 to 4 days back. She was also having left-sided abdominal pain on and off. She states that the pain is crampy in nature comes and goes. She denies having any history of being on blood thinners. Patient states that she had a colonoscopy very recently by Dr. Elliott. She denies having any weight loss. Patient denies having any chest pain or palpitations. No cough or difficulty breathing. No dysuria or hematuria. She denies having any headaches nausea or blurring of her vision. No weakness of her extremities. In the emergency, patient's vitals at the time of admission temperature 98.7, heart rate around 80, blood pressure 133/74 saturating at 97% on room air. Patient had CT of the abdomen and pelvis showing nonspecific abdomen, no e vidence of obstruction. But showed 2 mm subpleural nodule right lower lobe which was too small to characterize, recommend a 6-month follow-up to confirm stability. Her lab work showed white count of 10.2, hemoglobin 13.9, platelets 277. Sodium 138, potassium 3.9, bicarb 25, chloride 107, creatinine 0.56. AST ALT within normal limits. Amylase lipase within normal limits. On review of system patient mentions that she was recently diagnosed with depression started on Celexa. Even today patient states that she feels lonely in her apartment. Denies having any suicidal or homicidal ideation. Review of Systems REVIEW OF SYSTEMS: PSYCH: Depression NEURO: No c/o weakness of the extremties, No facial droop, No speech abnormaliti es. VASCULAR: No edema HEMATOLOGIC: No history of easy bleeding and bruising . No recent infections . RESPIRATORY: No cough, No SOB, No chest discomfort. IMMUNE: No recent infections INTEGUMENT: no rashes OPHTHALMOLOGIC: No blurry vision and no eye discharge : No dysuria or hematuria PAPER INSPECTOR: No bleeding PV CARDIAC: No chest pain , shortness of breath , paroxysmal nocturnal dyspnea MUSCULOSKELETAL : No Aches or pains in the joints or muscles. GI: As per HPI. Past Medical History Past Medical History: GERD/Reflux, Hyperlipidemia, Hypertension History of Any Multi-Drug Resistant Organisms: None Reported Past Surgical History: Cholecystectomy, Hysterectomy Past Anesthesia/Blood Transfusion Reactions: No Reported Reaction Past Psychological History: Anxiety Smoking Status: Current some day smoker Past Alcohol Use History: None Reported Past Drug Use History: None Reported Medications and Allergies Home Medications Medication Instructions Recorded Confirmed Type Omeprazole 20 mg PO DAILY 12/24/14 12/08/19 History amLODIPine BESYLATE/BENAZEPRIL 1 cap PO DAILY 12/24/14 12/08/19 History [Amlodipine-Benazepril 10-20 mg] atenoloL [Atenolol] 25 mg PO BID 12/24/14 12/08/19 History Ondansetron Odt [Zofran Odt] 4 mg PO Q12H PRN 10/11/19 12/08/19 History ALPRAZolam [Xanax] 0.5 mg PO HS PRN 12/08/19 12/08/19 History Acetaminophen Tab [Tylenol Tab] 1,000 mg PO Q6HR PRN 12/08/19 12/08/19 History Citalopram Hydrobromide [CeleXA] 10 mg PO HS 12/08/19 12/08/19 History Allergies Allergy/AdvReac Type Severity Reaction Status Date / Time No Known Allergies Allergy Verified 12/08/19 15:11 Physical Exam Vitals: Vital Signs Temp Pulse Pulse Resp BP BP Pulse Ox 12/08/19 15:41 98.9 F 66 17 104/66 12/08/19 13:37 98.1 F 66 17 141/68 100 12/08/19 12:16 98.0 F 71 18 153/86 99 Intake and Output 12/08/19 12/08/19 12/08/19 06:59 14:59 22:59 Other: # Voids 1 Weight 68.039 kg 68.039 kg PHYSICAL EXAM GEN. APPEARANCE: alert, in no apparent distress HEENT: No pallor, no icterus, No JVD, No Thyromegaly RESPIRATORY EXAM: normal lung sounds bilaterally. No wheezes or crackles CARDIOVASCULAR EXAM: S1, S2 heard. No additional sounds GI/ABDOMINAL EXAM: Mild tenderness in the left lower quadrant , no guarding or rigidity , No rmal bowel sounds EXTREMITIES EXAM: No edema NEUROLOGICAL EXAM: alert, oriented X3, no focal deficits PSYCHIATRIC EXAM: depressed , no SI or HI SKIN EXAM: no rash Results CBC & Chem 7: 12/08/19 12:49 12/08/19 12:49 Labs: Abnormal Lab Results - Last 24 Hours (Table) 12/08/19 12/08/19 Range/Units 12:49 12:49 Neutrophils # 8.1 H (1.3-7.7) k/uL BUN 18 H (7-17) mg/dL Glucose 100 H (74-99) mg/dL Assessment and Plan Assessment: ASSESSMENT Left lower quadrant abdominal pain Blood in the stool Depression Hypertension Hyperlipidemia GERD PLAN: Patient is admitted for ongoing abdominal pain and having blood in the stool 2 to 3 days back. Currently patient's hemoglobin is stable no active bleeding. CT of the abdomen and pelvis reviewed showing no evidence of obs truction. But there is 2 mm subpleural nodule in the right lower lobe, recommended 6-month follow-up to confirm stability. Patient has been restarted on her home medications. Started on Protonix. Further recommendations to follow depending on the progress of the patient.
[2019-12-09 05:58] LABS: Basophils % (A) 0 %; Eosinophils # (A) 0.1 k/uL (0-0.7); Eosinophils % (A) 2 %; HCT 39.4 % (34.0-46.0); HGB 12.9 gm/dL (11.4-16.0); Lymphocytes # (A) 1.4 k/uL (1.0-4.8); Lymphocytes % (A) 17 %; MCH 30.6 pg (25.0-35.0); MCHC 32.7 g/dL (31.0-37.0); MCV 93.7 fL (80.0-100.0); Mean Platelet Volume 6.7; Monocytes # (A) 0.3 k/uL (0-1.0); Monocytes % (A) 3 %; Neutrophils # (A) 6.2 k/uL (1.3-7.7); Neutrophils % (A) 77 %; Platelet Count 253 k/uL (150-450); RBC 4.21 m/uL (3.80-5.40); RDW 13.8 % (11.5-15.5); WBC 8.1 k/uL (3.8-10.6)
[2019-12-09] MEDS: PANTOPRAZOLE 40 MG TABLET PO SCH (07:31)
[2019-12-09] MEDS: lisinopriL 20 MG TAB PO SCH (08:15)
[2019-12-09] MEDS: atenoloL 25 MG TAB PO SCH ×2 (08:15→21:18)
[2019-12-09] MEDS: amLODIPine 10 MG TAB PO SCH (08:16)
[2019-12-09] MEDS: ENOXAPARIN 40 MG/0.4 ML SYRINGE SQ SCH (08:16)
--- NOTE | 2019-12-09 16:43 | P.PN ---
Subjective Progress Note Date: 12/09/19 Principal diagnosis: Bleeding per rectum and abdominal pain Ms. Pennington is a 74-year-old female with a past medical history of hypertension, hyperlipidemia, GERD, who follows with Dr. Gordy Yeung as outpatient, coming in with a chief complaint of pain. Patient states that she has been having blood in her stool that happened couple of x3 to 4 days back. She was also having left-sided abdominal pain on and off. She states that the pain is crampy in nature comes and goes. She denies having any history of being on blood thinners. Patient states that she had a colonoscopy very recently by Dr. Elliott. She denies having any weight loss. Patient denies having any chest pain or palpitations. No cough or difficulty breathing. No dysuria or hematuria. She denies having any headaches nausea or blurring of her vision. No weakness of her extremities. In the emergency, patient's vitals at the time of admission temperature 98.7, heart rate around 80, blood pressure 133/74 saturating at 97% on room air. Patient had CT of the abdomen and pelvis showing nonspecific abdomen, no evidence of obstruction. But showed 2 mm subpleural nodule right lower lobe which was too small to characterize, recommend a 6-month follow-up to confirm stability. Her lab work showed white count of 10.2, hemoglobin 13.9, platelets 277. Sodium 138, potassium 3.9, bicarb 25, chloride 107, creatinine 0.56. AST ALT within normal limits. Amylase lipase within normal limits. On 12/09/2019- no acute events reported by nursing staff. The patient is comfortably sleeping in bed. Appears to be in acute distress. On waking her up, patient states that she still has the lower abdominal pain. Denies having any nausea vomiting or diarrhea. She did not have a bowel movement. The last bowel movement she had was at home, it was not associated with any blood. On reviewing the records patient had a colonoscopy on October [address] Elliott. Patient denies having any chest pain, palpitations, cough, difficulty in breathing. Patient's vitals have been stable overnight. Patient's CBC from this morning showed a stable hemoglobin of 12.9. Active Medications Alprazolam (Xanax) 0.5 mg PO HS PRN PRN Reason: Insomnia Amlodipine Besylate (Norvasc) 10 mg PO DAILY [facility] Last Admin: 12/09/19 08:16 Dose: 10 mg Documented by: Atenolol (Tenormin) 25 mg PO BID [facility] Last Admin: 12/09/19 08:15 Dose: 25 mg Documented by: Citalopram Hydrobromide (Celexa) 10 mg PO HS [facility] Last Admin: 12/08/19 19:46 Dose: Not Given Documented by: Enoxaparin Sodium (Lovenox) 40 mg SQ DAILY [facility] Last Admin: 12/09/19 08:16 Dose: 40 mg Documented by: Lisinopril (Zestril) 20 mg PO DAILY [facility] Last Admin: 12/09/19 08:15 Dose: 20 mg Documented by: Lorazepam (Ativan) 1 mg IV Q4HR PRN PRN Reason: Anxiety Morphine Sulfate (Morphine Sulfate (Inj)) 4 mg IVP Q4HR PRN PRN Reason: Pain Ondansetron HCl (Zofran) 4 mg IVP Q6HR PRN PRN Reason: Nausea And Vomiting Pantoprazole Sodium (Protonix) 40 mg PO AC-BRKFST [facility] Last Admin: 12/09/19 07:31 Dose: 40 mg Documented by: Temazepam (Restoril) 15 mg PO HS PRN PRN Reason: Insomnia Last Admin: 12/08/19 20:56 Dose: 15 mg Documented by: Objective - Vital Signs Vital signs: Vital Signs Temp 98.9 F 12/09/19 15:00 Pulse 75 12/09/19 15:00 Resp 17 12/09/19 15:00 BP 145/77 12/09/19 15:00 Pulse Ox 100 12/09/19 15:00 Intake & Output 12/08/19 12/09/19 12/09/19 18:59 06:59 18:59 Weight 68.039 kg Other: # Voids 1 2 3 - Exam PHYSICAL EXAM GEN. APPEARANCE: alert, in no apparent distress HEENT: No pallor, no icterus, No JVD, No Thyromegaly RESPIRATORY EXAM: normal lung sounds bilaterally. No wheezes or crackles CARDIOVASCULAR EXAM: S1, S2 heard. No additional sounds GI/ABDOMINAL EXAM: Mild tenderness in the left lower quadrant , no guarding or rigidity , No rmal bowel sounds EXTREMITIES EXAM: No edema NEUROLOGICAL EXAM: alert, oriented X3, no focal deficits PSYCHIATRIC EXAM: depressed , no SI or HI SKIN EXAM: no rash - Labs CBC & Chem 7: 12/10/19 03:43 12/08/19 12:49 Assessment and Plan Assessment: ASSESSMENT Left lower quadrant abdominal pain Blood in the stool Depression Hypertension Hyperlipidemia GERD PLAN: Patient is admitted for ongoing abdominal pain and having blood in the stool 2 to 3 days back. Currently patient's hemoglobin is stable no active bleeding. CT of the abdomen and pelvis reviewed showing no evidence of obstruction. But there is 2 mm subpleural nodule in the right lower lobe, recommended 6-month follow-up to confirm stability. Patient has been restarted on her home medications. Started on Protonix. Patient is clinically stable, but she does not want to go home. Anticipate discharge in the next 24 hrs.
[2019-12-09] MEDS: CITALOPRAM HYDROBROMIDE 10 MG TAB PO SCH (21:19)
[2019-12-10] MEDS: ACETAMINOPHEN TAB 325 MG TAB PO PRN ×2 (00:21→09:46)
[2019-12-10 03:58] LABS: Basophils # (A) 0.1 k/uL (0-0.2); Basophils % (A) 1 %; Eosinophils # (A) 0.2 k/uL (0-0.7); Eosinophils % (A) 2 %; HCT 42.7 % (34.0-46.0); HGB 13.8 gm/dL (11.4-16.0); Lymphocytes % (A) 22 %; MCH 29.9 pg (25.0-35.0); MCHC 32.2 g/dL (31.0-37.0); MCV 92.8 fL (80.0-100.0); Mean Platelet Volume 6.8; Monocytes # (A) 0.4 k/uL (0-1.0); Monocytes % (A) 4 %; Neutrophils # (A) 6.4 k/uL (1.3-7.7); Neutrophils % (A) 70 %; Platelet Count 276 k/uL (150-450); RDW 13.8 % (11.5-15.5); WBC 9.1 k/uL (3.8-10.6)
[2019-12-10] MEDS: lisinopriL 20 MG TAB PO SCH (07:55)
[2019-12-10] MEDS: PANTOPRAZOLE 40 MG TABLET PO SCH (07:55)
[2019-12-10] MEDS: amLODIPine 10 MG TAB PO SCH (07:55)
[2019-12-10] MEDS: ENOXAPARIN 40 MG/0.4 ML SYRINGE SQ SCH (07:56)
[2019-12-10] MEDS: atenoloL 25 MG TAB PO SCH (07:56)
[2019-12-10 08:02] VITALS: BP 156/79; PULSE 75; RESP 16; TEMP 98.1
[2019-12-10] MEDS ORDERED: polyethylene glycoL 3350 17 GM POWD.PACK PO STA (11:35)
--- NOTE | 2019-12-10 23:24 | P.DS ---
Providers Date of admission: 12/08/19 14:34 Expected date of discharge: 12/10/19 Attending physician: Gordy Yeung Primary care physician: Gordy Yeung [facility] Course: HPI - Ms. Pennington is a 74-year-old female with a past medical history of hypertension, hyperlipidemia, GERD, who follows with Dr. Gordy Yeung as outpatient, coming in with a chief complaint of pain. Patient states that she has been having blood in her stool that happened couple of x3 to 4 days back. She was also having left-sided abdominal pain on and off. She states that the pain is crampy in nature comes and goes. She denies having any history of being on blood thinners. Patient states that she had a colonoscopy very recently by Dr. Elliott. She denies having any weight loss. Patient denies having any chest pain or palpitations. No cough or difficulty breathing. No dysuria or hematuria. She denies having any headaches nausea or blurring of her vision. No weakness of her extremities. In the emergency, patient's vitals at the time of admission temperature 98.7, heart rate around 80, blood pressure 133/74 saturating at 97% on room air. Patient had CT of the abdomen and pelvis showing nonspecific abdomen, no evidence of obstruction. But showed 2 mm subpleural nodule right lower lobe which was too small to characterize, recommend a 6-month follow-up to confirm stability. Her lab work showed white count of 10.2, hemoglobin 13.9, platelets 277. Sodium 138, potassium 3.9, bicarb 25, chloride 107, creatinine 0.56. AST ALT within normal limits. Amylase lipase within normal limits. Hospital course - Patient was observed in the hospital for couple of days. Her hemoglobin has been stable all through. Patient did not have any more bloody stools. She had a good formed stool with no blood in it and her hemoglobin is stable. So the patient is being discharged home in a stable condition. DISCHARGE DIAGNOSIS Left lower quadrant abdominal pain- resolved Blood in the stool - Hb stable since admission 2 mm subpleural nodule in the right lower lobe Depression Hypertension Hyperlipidemia GERD FFOLLOW UP : Advised follow up with her PCP Dr. Gordy Yeung in 2-3 days. Also recommended to follow up on the 2 mm subpleural nodule in the right lower lobe, 6-month follow-up to confirm stability with her PCP. CC: Dr. Gordy Yeung Patient Condition at Discharge: Fair Plan - Discharge Summary Discharge Rx Participant: Yes New Discharge Prescriptions: Continue amLODIPine BESYLATE/BENAZEPRIL [Amlodipine-Benazepril 10-20 mg] 1 cap PO DAILY Omeprazole 20 mg PO DAILY atenoloL [Atenolol] 25 mg PO BID Ondansetron Odt [Zofran ODT] 4 mg PO Q12H PRN PRN Reason: Nausea Acetaminophen Tab [Tylenol] 1,000 mg PO Q6HR PRN PRN Reason: Pain Or Fever > 100.5 ALPRAZolam [Xanax] 0.5 mg PO HS PRN PRN Reason: Insomnia Citalopram Hydrobromide [CeleXA] 10 mg PO HS Discharge Medication List Omeprazole 20 mg PO DAILY 12/24/14 [History] amLODIPine BESYLATE/BENAZEPRIL [Amlodipine-Benazepril 10-20 mg] 1 cap PO DAILY 12/24/14 [History] atenoloL [Atenolol] 25 mg PO BID 12/24/14 [History] Ondansetron Odt [Zofran ODT] 4 mg PO Q12H PRN 10/11/19 [History] ALPRAZolam [Xanax] 0.5 mg PO HS PRN 12/08/19 [History] Acetaminophen Tab [Tylenol] 1,000 mg PO Q6HR PRN 12/08/19 [History] Citalopram Hydrobromide [CeleXA] 10 mg PO HS 12/08/19 [History] Follow up Appointment(s)/Referral(s): Gordy Yeung DO [Primary Care Provider] - 12/12/19 11:00 am () Patient Instructions/Handouts: Constipation (DC) Discharge Disposition: HOME SELF-CARE
== END 2019-12-10 13:28 | disposition home or self-care (01) ==
LOC: EC 12:06 → 1SOBS 14:34
PROVIDERS: ADMIT Family Medicine; ATTEND Family Medicine
DX: K92.1 Melena (principal); R10.32 Left lower quadrant pain; E78.5 Hyperlipidemia, unspecified; F17.200 Nicotine dependence, unspecified, uncomplicated; F32.9 Major depressive disorder, single episode, unspecified; F41.9 Anxiety disorder, unspecified; G47.00 Insomnia, unspecified; I10 Essential (primary) hypertension; K21.9 Gastro-esophageal reflux disease without esophagitis; Z79.899 Other long term (current) drug therapy; Z90.49 Acquired absence of other specified parts of digestive tract; Z90.710 Acquired absence of both cervix and uterus; R91.1 Solitary pulmonary nodule
CPT/HCPCS: 96372 ×2; 96361; 96374; 96375; 99285; 36415; 86900; 86901; 80053; 82150; 83605; 83690; 83735; 85025 ×3; 85610; 85730; 86850; 74177; G0378 ×3; J2270; J2405; J1650 ×2; C9113; Q9967

== ENCOUNTER 2019-12-16 20:32 | Emergency (ER) | payer MEDICARE, OTHER ==
[2019-12-16 20:36] VITALS: RESP 18; TEMP 98.3
[2019-12-16 21:02] VITALS: BP 161/80; PULSE 77
--- NOTE | 2019-12-16 21:24 | ED ---
General Adult HPI - General Chief complaint: Headache Stated complaint: High BP Time Seen by Provider: 12/16/19 20:38 Source: patient Mode of arrival: ambulatory Limitations: no limitations - History of Present Illness Initial comments: 74-year-old female patient presents to the emergency department today for evaluation of elevated blood pressure. Patient states that she checked her blood pressure when she found a blood pressure cuff in her closet. Patient states she is not feeling unwell. States that the blood pressure was 160/89, she felt this was high so she presented here for further evaluation. Currently patient is resting comfortably in bed, states that she feels well. Denies any chest pain, shortness of breath, blurred vision, double vision, headache, nausea, or vomiting. States she is eating and drinking without difficulty. She does admit to being lonely at home and wanting to move in with her children but she is waiting for them to respond her request. She denies any suicidal ideation. States she is taking 2 different blood pressure medications including atenolol and amlodipine, states she does take these as directed. Patient denies any recent rash, fever, chills, cough, abdominal pain, diarrhea, constipation, back pain, numbness, tingling, dizziness, weakness, hematuria, dysuria, urinary urgency, urinary frequency, or any other complaints. - Related Data Home Medications Medication Instructions Recorded Confirmed Omeprazole 20 mg PO DAILY 12/24/14 12/08/19 amLODIPine BESYLATE/BENAZEPRIL 1 cap PO DAILY 12/24/14 12/08/19 [Amlodipine-Benazepril 10-20 mg] atenoloL [Atenolol] 25 mg PO BID 12/24/14 12/08/19 Ondansetron Odt [Zofran ODT] 4 mg PO Q12H PRN 10/11/19 12/08/19 ALPRAZolam [Xanax] 0.5 mg PO HS PRN 12/08/19 12/08/19 Acetaminophen Tab [Tylenol] 1,000 mg PO Q6HR PRN 12/08/19 12/08/19 Citalopram Hydrobromide [CeleXA] 10 mg PO HS 12/08/19 12/08/19 Allergies Allergy/AdvReac Type Severity Reaction Status Date / Time No Known Allergies Allergy Verified 12/16/19 20:36 Review of Systems ROS Statement: Those systems with pertinent positive or pertinent negative responses have been documented in the HPI. ROS Other: All systems not noted in ROS Statement are negative. Past Medical History Past Medical History: GERD/Reflux, Hyperlipidemia, Hypertension History of Any Multi-Drug Resistant Organisms: None Reported Past Surgical History: Cholecystectomy, Hysterectomy Past Anesthesia/Blood Transfusion Reactions: No Reported Reaction Past Psychological History: Anxiety Smoking Status: Current some day smoker Past Alcohol Use History: None Reported Past Drug Use History: None Reported General Exam Limitations: no limitations General appearance: alert, in no apparent distress, other (This is a well- developed, well-nourished elderly female patient in no acute distress. Vital signs upon presentation are temperature 98.3F, pulse 92, respirations 18, blood pressure 159/91, pulse ox 98% on room air.) Eye exam: Present: normal appearance, PERRL, EOMI. Absent: scleral icterus, conjunctival injection, periorbital swelling Respiratory exam: Present: normal lung sounds bilaterally. Absent: respiratory distress, wheezes, rales, rhonchi, stridor Cardiovascular Exam: Present: regular rate, normal rhythm, normal heart sounds. Absent: systolic murmur, diastolic murmur, rubs, gallop, clicks GI/Abdominal exam: Present: soft, normal bowel sounds. Absent: distended, tenderness, guarding, rebound, rigid Neurological exam: Present: alert, oriented X3, CN II-XII intact Psychiatric exam: Present: normal affect, normal mood Skin exam: Present: warm, dry, intact, normal color. Absent: rash Course Vital Signs 12/16/19 12/16/19 12/16/19 20:32 21:01 21:39 Temperature 98.3 F 98.3 F Pulse Rate 92 77 77 Respiratory 18 18 18 Rate Blood Pressure 159/91 161/80 161/80 O2 Sat by Pulse 98 97 97 Oximetry Medical Decision Making - Medical Decision Making 74-year-old female patient presents to the emergency department today for evaluation of elevated blood pressure. In the department patient's blood pressures in the 160s over 80s. She is currently asymptomatic. She does take blood pressure medication at home including atenolol and amlodipine. States she has been on the same doses for a long time. Given blood pressures in the department and we will not recommend any further testing or medication dosages. She will be discharged home to keep a log of blood pressures for her primary care physician. She does have an appointment coming up on the , she is urged to call the get a sooner appointment tomorrow morning. Return parameters were discussed in detail. She verbalizes understanding and agrees with this plan. Disposition Clinical Impression: High blood pressure Disposition: HOME SELF-CARE Condition: Good Instructions (If sedation given, give patient instructions): Hypertension (ED) Additional Instructions: Keep a list of your blood pressures for Dr. Yeung. Take your blood pressure in the morning, at noon, and at night. Follow-up with your primary care physician for recheck as soon as possible. Return to the emergency department immediately for any new, worsening, or concerning symptoms. Is patient prescribed a controlled substance at d/c from ED?: No Referrals: Gordy Yeung DO [Primary Care Provider] - 1-2 days Time of Disposition: 21:24
== END 2019-12-16 21:40 | disposition home or self-care (01) ==
LOC: EC 20:32
DX: I10 Essential (primary) hypertension (principal); R51 Headache; K21.9 Gastro-esophageal reflux disease without esophagitis; F41.9 Anxiety disorder, unspecified; Z79.899 Other long term (current) drug therapy; F17.200 Nicotine dependence, unspecified, uncomplicated
CPT/HCPCS: 99283

== ENCOUNTER 2019-12-19 18:14 | Emergency (ER) | payer MEDICARE, OTHER ==
[2019-12-19] MEDS ORDERED: SODIUM CHLORIDE 0.9% 1,000 ML IV STA (18:50)
--- NOTE | 2019-12-19 18:55 | ED ---
Recheck HPI - General Chief Complaint: Recheck/Abnormal Lab/Rx Stated Complaint: High BP Time Seen by Provider: 12/19/19 18:33 Source: patient, family Mode of arrival: wheelchair Limitations: no limitations - History of Present Illness Initial Comments: This is a 74-year-old female DF for evaluation multiple recent visits, everything from abdominal pain to anxiety. Patient on new anxiety medication states is not making her feel well she doesn't have been feeling herself. at bedside who also does provide history. Patient believes her blood pressures been elevated but has not been taking her blood pressure home Complaint: other (anxiety) -: days(s) Returns Today for: other (not feeling well) Symptoms Since Prior Visit: no new symptoms Context: ran out of medication Associated Symptoms: nausea - Related Data Home Medications Medication Instructions Recorded Confirmed Omeprazole 20 mg PO DAILY 12/24/14 12/19/19 amLODIPine BESYLATE/BENAZEPRIL 1 cap PO DAILY 12/24/14 12/19/19 [Amlodipine-Benazepril 10-20 mg] atenoloL [Atenolol] 25 mg PO BID 12/24/14 12/19/19 ALPRAZolam [Xanax] 0.5 mg PO HS PRN 12/08/19 12/19/19 Citalopram Hydrobromide [CeleXA] 10 mg PO HS 12/08/19 12/19/19 Allergies Allergy/AdvReac Type Severity Reaction Status Date / Time No Known Allergies Allergy Verified 12/19/19 19:46 Review of Systems ROS Statement: Those systems with pertinent positive or pertinent negative responses have been documented in the HPI. ROS Other: All systems not noted in ROS Statement are negative. Past Medical History Past Medical History: GERD/Reflux, Hyperlipidemia, Hypertension History of Any Multi-Drug Resistant Organisms: None Reported Past Surgical History: Cholecystectomy, Hysterectomy Past Anesthesia/Blood Transfusion Reactions: No Reported Reaction Past Psychological History: Anxiety Smoking Status: Current some day smoker Past Alcohol Use History: None Reported Past Drug Use History: None Reported General Exam Limitations: no limitations General appearance: alert, in no apparent distress, anxious Head exam: Present: atraumatic, normocephalic, normal inspection Eye exam: Present: normal appearance, PERRL, EOMI. Absent: scleral icterus, conjunctival injection, periorbital swelling ENT exam: Present: normal exam, mucous membranes moist Neck exam: Present: normal inspection. Absent: tenderness, meningismus, lymphadenopathy Respiratory exam: Present: normal lung sounds bilaterally. Absent: respiratory distress, wheezes, rales, rhonchi, stridor Cardiovascular Exam: Present: regular rate, normal rhythm, normal heart sounds. Absent: systolic murmur, diastolic murmur, rubs, gallop, clicks GI/Abdominal exam: Present: soft, normal bowel sounds. Absent: distended, tenderness, guarding, rebound, rigid Extremities exam: Present: normal inspection, full ROM, normal capillary refill. Absent: tenderness, pedal edema, joint swelling, calf tenderness Back exam: Present: normal inspection Neurological exam: Present: alert, oriented X3, CN II-XII intact Psychiatric exam: Present: normal affect, normal mood Skin exam: Present: warm, dry, intact, normal color. Absent: rash Course Vital Signs 12/19/19 12/19/19 12/19/19 18:19 19:35 21:22 Temperature 98.0 F 97.4 F L Pulse Rate 87 76 69 Respiratory 20 16 18 Rate Blood Pressure 147/76 144/68 141/70 O2 Sat by Pulse 99 98 99 Oximetry - Reevaluation(s) Reevaluation #1: 12/19/19 18:55 medical record is reviewed Reevaluation #2: Patient without acute complaint currently, informed of results and questions are answered - Consultations Consultation #1: Spoke with Dr. Yeung will see patient in the office this week Medical Decision Making - Medical Decision Making 74 female a lot of nonspecific complaints also high blood pressure she does not have high blood pressure here in the ER, labwork is otherwise normal follow-up with primary care continue to evaluate for worsening anxiety or psychiatric underlying - Lab Data Result diagrams: 12/19/19 19:11 12/19/19 19:11 Lab Results 12/19/19 12/19/19 12/19/19 Range/Units 19:11 19:11 19:11 WBC 11.2 H (3.8-10.6) k/uL RBC 4.75 (3.80-5.40) m/uL Hgb 14.4 (11.4-16.0) gm/dL Hct 44.1 (34.0-46.0) % MCV 92.9 (80.0-100.0) fL MCH 30.4 (25.0-35.0) pg MCHC 32.7 (31.0-37.0) g/dL RDW 13.7 (11.5-15.5) % Plt Count 265 (150-450) k/uL Neutrophils % 77 % Lymphocytes % 18 % Monocytes % 3 % Eosinophils % 1 % Basophils % 0 % Neutrophils # 8.6 H (1.3-7.7) k/uL Lymphocytes # 2.0 (1.0-4.8) k/uL Monocytes # 0.4 (0-1.0) k/uL Eosinophils # 0.1 (0-0.7) k/uL Basophils # 0.1 (0-0.2) k/uL Sodium 140 (137-145) mmol/L Potassium 4.0 (3.5-5.1) mmol/L Chloride 105 (98-107) mmol/L Carbon Dioxide 26 (22-30) mmol/L Anion Gap 9 mmol/L BUN 24 H (7-17) mg/dL Creatinine 0.55 (0.52-1.04) mg/dL Est GFR (CKD-EPI)AfAm >90 (>60 ml/min/1.73 sqM) Est GFR (CKD-EPI)NonAf >90 (>60 ml/min/1.73 sqM) Glucose 109 H (74-99) mg/dL Plasma Lactic Acid Sudhakar (0.7-2.0) mmol/L Calcium 10.1 (8.4-10.2) mg/dL Phosphorus 4.9 H (2.5-4.5) mg/dL Magnesium 2.2 (1.6-2.3) mg/dL Total Bilirubin 0.6 (0.2-1.3) mg/dL AST 25 (14-36) U/L ALT 19 (4-34) U/L Alkaline Phosphatase 142 H (38-126) U/L Creatine Kinase 32 (30-135) U/L Troponin I (0.000-0.034) ng/mL Total Protein 7.3 (6.3-8.2) g/dL Albumin 4.4 (3.5-5.0) g/dL Urine Color Light Yellow Urine Appearance Clear (Clear) Urine pH 6.5 (5.0-8.0) Ur Specific [place] 1.007 (1.001-1.035) Urine Protein Negative (Negative) Urine Glucose (UA) Negative (Negative) Urine Ketones Negative (Negative) Urine Blood Trace H (Negative) Urine Nitrite Negative (Negative) Urine Bilirubin Negative (Negative) Urine Urobilinogen <2.0 (<2.0) mg/dL Ur Leukocyte Esterase Negative (Negative) Urine RBC 3 (0-5) /hpf Urine WBC 1 (0-5) /hpf Amorphous Sediment Rare H (None) /hpf Urine Bacteria Rare H (None) /hpf Urine Mucus Rare H (None) /hpf 12/19/19 12/19/19 Range/Units 19:11 19:11 WBC (3.8-10.6) k/uL RBC (3.80-5.40) m/uL Hgb (11.4-16.0) gm/dL Hct (34.0-46.0) % MCV (80.0-100.0) fL MCH (25.0-35.0) pg MCHC (31.0-37.0) g/dL RDW (11.5-15.5) % Plt Count (150-450) k/uL Neutrophils % % Lymphocytes % % Monocytes % % Eosinophils % % Basophils % % Neutrophils # (1.3-7.7) k/uL Lymphocytes # (1.0-4.8) k/uL Monocytes # (0-1.0) k/uL Eosinophils # (0-0.7) k/uL Basophils # (0-0.2) k/uL Sodium (137-145) mmol/L Potassium (3.5-5.1) mmol/L Chloride (98-107) mmol/L Carbon Dioxide (22-30) mmol/L Anion Gap mmol/L BUN (7-17) mg/dL Creatinine (0.52-1.04) mg/dL Est GFR (CKD-EPI)AfAm (>60 ml/min/1.73 sqM) Est GFR (CKD-EPI)NonAf (>60 ml/min/1.73 sqM) Glucose (74-99) mg/dL Plasma Lactic Acid Sudhakar 0.8 (0.7-2.0) mmol/L Calcium (8.4-10.2) mg/dL Phosphorus (2.5-4.5) mg/dL Magnesium (1.6-2.3) mg/dL Total Bilirubin (0.2-1.3) mg/dL AST (14-36) U/L ALT (4-34) U/L Alkaline Phosphatase (38-126) U/L Creatine Kinase (30-135) U/L Troponin I <0.012 (0.000-0.034) ng/mL Total Protein (6.3-8.2) g/dL Albumin (3.5-5.0) g/dL Urine Color Urine Appearance (Clear) Urine pH (5.0-8.0) Ur Specific [place] (1.001-1.035) Urine Protein (Negative) Urine Glucose (UA) (Negative) Urine Ketones (Negative) Urine Blood (Negative) Urine Nitrite (Negative) Urine Bilirubin (Negative) Urine Urobilinogen (<2.0) mg/dL Ur Leukocyte Esterase (Negative) Urine RBC (0-5) /hpf Urine WBC (0-5) /hpf Amorphous Sediment (None) /hpf Urine Bacteria (None) /hpf Urine Mucus (None) /hpf Disposition Clinical Impression: High blood pressure, Anxiety reaction Disposition: HOME SELF-CARE Condition: Fair Instructions (If sedation given, give patient instructions): Generalized Anxiety Disorder (ED), Anxiety (ED), Anxiolysis in Adults (ED) Is patient prescribed a controlled substance at d/c from ED?: No Referrals: Gordy Yeung DO [Primary Care Provider] - 1-2 days
[2019-12-19 19:25] LABS: Basophils # (A) 0.1 k/uL (0-0.2); Basophils % (A) 0 %; Eosinophils # (A) 0.1 k/uL (0-0.7); Eosinophils % (A) 1 %; HCT 44.1 % (34.0-46.0); HGB 14.4 gm/dL (11.4-16.0); Lymphocytes % (A) 18 %; MCH 30.4 pg (25.0-35.0); MCHC 32.7 g/dL (31.0-37.0); MCV 92.9 fL (80.0-100.0); Mean Platelet Volume 6.7; Monocytes # (A) 0.4 k/uL (0-1.0); Monocytes % (A) 3 %; Neutrophils # (A) 8.6 k/uL (1.3-7.7); Neutrophils % (A) 77 %; Platelet Count 265 k/uL (150-450); RBC 4.75 m/uL (3.80-5.40); RDW 13.7 % (11.5-15.5); WBC 11.2 k/uL (3.8-10.6)
[2019-12-19 19:40] LABS: ALT 19 U/L (4-34); AST 25 U/L (14-36); African American GFR (CKD) >90 (>60 ml/min/1.73 sqM); Albumin 4.4 g/dL (3.5-5.0); Alkaline Phosphatase 142 U/L (38-126); Anion Gap 9 mmol/L; Blood Urea Nitrogen 24 mg/dL (7-17); Calcium 10.1 mg/dL (8.4-10.2); Carbon Dioxide 26 mmol/L (22-30); Chloride 105 mmol/L (98-107); Creatine Kinase 32 U/L (30-135); Glucose 109 mg/dL (74-99); Magnesium 2.2 mg/dL (1.6-2.3); Non-African American GFR(CKD) >90 (>60 ml/min/1.73 sqM); Phosphorus 4.9 mg/dL (2.5-4.5); Sodium 140 mmol/L (137-145); Total Bilirubin 0.6 mg/dL (0.2-1.3); Total Protein 7.3 g/dL (6.3-8.2)
[2019-12-19] MEDS ORDERED: DIAZEPAM 5 MG/ML 2 ML INJ IVP STA (19:46)
[2019-12-19 20:07] LABS: Amorphous Sediment,Urine Rare /hpf; Appearance,Urine Clear (Clear); Bacteria,Urine Rare /hpf; Bilirubin,Urine Negative (Negative); Blood,Urine Trace (Negative); Color,Urine Light Yellow; Glucose,Urine (UA) Negative (Negative); Ketones,Urine Negative (Negative); Leukocyte Esterase,Urine Negative (Negative); Mucus,Urine Rare /hpf; Nitrite,Urine Negative (Negative); PH, Urine 6.5 (5.0-8.0); Protein,Urine Negative (Negative); RBC,Urine 3 /hpf (0-5); Specific Gravity,Urine 1.007 (1.001-1.035); Urobilinogen,Urine <2.0 mg/dL (<2.0); WBC,Urine 1 /hpf (0-5)
[2019-12-19 21:23] VITALS: BP 141/70; PULSE 69; RESP 18; TEMP 97.4
== END 2019-12-19 21:23 | disposition home or self-care (01) ==
LOC: EC 18:14
DX: I10 Essential (primary) hypertension (principal); F41.1 Generalized anxiety disorder; K21.9 Gastro-esophageal reflux disease without esophagitis; F17.200 Nicotine dependence, unspecified, uncomplicated; Z79.899 Other long term (current) drug therapy
CPT/HCPCS: 36415; 93005; 80053; 82550; 83605; 83735; 84100; 84484; 85025; 81001; 99283; 96374; 96361; J3360

== ENCOUNTER → 2019-12-21 | Outpatient (CLI) | payer MEDICARE, OTHER ==
--- NOTE | 2019-12-21 08:35 | XR ---
EXAMINATION TYPE: XR chest 2V DATE OF EXAM: 12/21/2019 COMPARISON: 04/11/2017 HISTORY: Shortness of breath TECHNIQUE: Frontal and lateral views of the chest are obtained. FINDINGS: Scattered senescent parenchymal changes noted. Hyperinflation compatible with COPD. No evidence for infiltrate. No evidence for atelectasis. Heart size is stable. Mediastinal structures are stable and grossly unremarkable. No evidence for hilar prominence. Degenerative changes dorsal spine. IMPRESSION: 1. No evidence for acute pulmonary disease.
[2019-12-21 16:16] LABS: Chol/HDL Ratio 3.12; LDL Cholesterol,Calculated 99.4 mg/dL (0.0-131.0); VLDL Calculation 27.6 mg/dL (5.00-40.00)
== END | disposition home or self-care (01) ==
LOC: LABWHC1 07:16
PROVIDERS: ATTEND Internal Medicine Interventional Cardiology
DX: R06.00 Dyspnea, unspecified (principal); E78.2 Mixed hyperlipidemia
CPT/HCPCS: 36415; 71046; 80061

== ENCOUNTER 2020-01-06 16:55 | Observation (INO) | payer MEDICARE, OTHER ==
[2020-01-06 17:08] VITALS: RESP 18
[2020-01-06] MEDS ORDERED: SODIUM CHLORIDE 0.9% 500 ML 500 ML IV STA (18:10)
--- NOTE | 2020-01-06 18:19 | ED ---
General Adult HPI - General Chief complaint: Weakness Stated complaint: lightheaded/dizziness Time Seen by Provider: 01/06/20 18:05 Source: patient, RN notes reviewed, old records reviewed Mode of arrival: ambulatory Limitations: no limitations - History of Present Illness Initial comments: 74-year-old female presented for evaluation of generalized weakness, poor appetite, and vomiting. Symptoms have been ongoing for the past several months. She has been seen by her primary care physician, uncertain of the exact cause of her symptoms. She states that she is only able to tolerate liquids and had one episode of vomiting earlier in the day. She denies significant abdominal pain. She denies chest pain or dyspnea. Denies focal numbness or weakness. Denies dysuria or hematuria. - Related Data Home Medications Medication Instructions Recorded Confirmed Omeprazole 20 mg PO DAILY 12/24/14 12/19/19 amLODIPine BESYLATE/BENAZEPRIL 1 cap PO DAILY 12/24/14 12/19/19 [Amlodipine-Benazepril 10-20 mg] atenoloL [Atenolol] 25 mg PO BID 12/24/14 12/19/19 ALPRAZolam [Xanax] 0.5 mg PO HS PRN 12/08/19 12/19/19 Citalopram Hydrobromide [CeleXA] 10 mg PO HS 12/08/19 12/19/19 Allergies Allergy/AdvReac Type Severity Reaction Status Date / Time No Known Allergies Allergy Verified 01/06/20 17:08 Review of Systems ROS Statement: Those systems with pertinent positive or pertinent negative responses have been documented in the HPI. ROS Other: All systems not noted in ROS Statement are negative. Past Medical History Past Medical History: GERD/Reflux, Hyperlipidemia, Hypertension History of Any Multi-Drug Resistant Organisms: None Reported Past Surgical History: Cholecystectomy, Hysterectomy Past Anesthesia/Blood Transfusion Reactions: No Reported Reaction Past Psychological History: Anxiety Smoking Status: Current some day smoker Past Alcohol Use History: None Reported Past Drug Use History: None Reported General Exam Limitations: no limitations General appearance: alert, in no apparent distress Head exam: Present: atraumatic, normocephalic Eye exam: Present: normal appearance, PERRL ENT exam: Present: normal exam, mucous membranes moist Neck exam: Present: normal inspection. Absent: tenderness, meningismus Respiratory exam: Present: normal lung sounds bilaterally. Absent: respiratory distress, wheezes, rales Cardiovascular Exam: Present: regular rate, normal rhythm GI/Abdominal exam: Present: soft. Absent: distended, tenderness, guarding, rebound Extremities exam: Present: normal inspection, normal capillary refill. Absent: pedal edema, calf tenderness Neurological exam: Present: alert, oriented X3, CN II-XII intact. Absent: motor sensory deficit Psychiatric exam: Present: normal affect, normal mood Skin exam: Present: warm, dry, intact. Absent: cyanosis, diaphoretic Course Vital Signs 01/06/20 01/06/20 01/06/20 17:03 18:42 20:30 Temperature 98.1 F Pulse Rate 72 60 67 Respiratory 18 18 18 Rate Blood Pressure 117/70 119/67 129/66 O2 Sat by Pulse 99 99 98 Oximetry EKG Findings - EKG Comments: EKG Findings:: EKG: Normal sinus rhythm, rate of 63, DC interval 156, QRS duration 86, QTC 431, no ST segment elevation or depression. Medical Decision Making - Medical Decision Making Generalized weakness, vomiting, epigastric pain. No tenderness on exam. Vitals are stable. Workup reveals leukocytosis of uncertain etiology at 15. She has otherwise normal white lites, normal urinalysis, chest x-ray negative for focal pneumonia or acute findings. Ultrasound is negative for common bile duct dilatation or acute findings. Patient continues to have symptoms while in the emergency department. Will be admitted for generalized weakness, nausea. She's placed on IV fluids. - Lab Data Result diagrams: 01/06/20 18:26 01/06/20 18:26 Lab Results 01/06/20 01/06/20 01/06/20 Range/Units 18:26 18:26 18:26 WBC 15.0 H (3.8-10.6) k/uL RBC 4.59 (3.80-5.40) m/uL Hgb 14.2 (11.4-16.0) gm/dL Hct 42.4 (34.0-46.0) % MCV 92.3 (80.0-100.0) fL MCH 30.8 (25.0-35.0) pg MCHC 33.4 (31.0-37.0) g/dL RDW 13.3 (11.5-15.5) % Plt Count 275 (150-450) k/uL Neutrophils % 82 % Lymphocytes % 13 % Monocytes % 4 % Eosinophils % 1 % Basophils % 0 % Neutrophils # 12.2 H (1.3-7.7) k/uL Lymphocytes # 1.9 (1.0-4.8) k/uL Monocytes # 0.5 (0-1.0) k/uL Eosinophils # 0.1 (0-0.7) k/uL Basophils # 0.1 (0-0.2) k/uL PT 9.7 (9.0-12.0) sec INR 0.9 (<1.2) APTT 22.2 (22.0-30.0) sec Sodium (137-145) mmol/L Potassium (3.5-5.1) mmol/L Chloride (98-107) mmol/L Carbon Dioxide (22-30) mmol/L Anion Gap mmol/L BUN (7-17) mg/dL Creatinine (0.52-1.04) mg/dL Est GFR (CKD-EPI)AfAm (>60 ml/min/1.73 sqM) Est GFR (CKD-EPI)NonAf (>60 ml/min/1.73 sqM) Glucose (74-99) mg/dL Plasma Lactic Acid Sudhakar (0.7-2.0) mmol/L Calcium (8.4-10.2) mg/dL Magnesium (1.6-2.3) mg/dL Total Bilirubin (0.2-1.3) mg/dL AST (14-36) U/L ALT (4-34) U/L Alkaline Phosphatase (38-126) U/L Troponin I (0.000-0.034) ng/mL Total Protein (6.3-8.2) g/dL Albumin (3.5-5.0) g/dL Urine Color Light Yellow Urine Appearance Clear (Clear) Urine pH 7.5 (5.0-8.0) Ur Specific [place] 1.005 (1.001-1.035) Urine Protein Negative (Negative) Urine Glucose (UA) Negative (Negative) Urine Ketones Negative (Negative) Urine Blood Trace H (Negative) Urine Nitrite Negative (Negative) Urine Bilirubin Negative (Negative) Urine Urobilinogen <2.0 (<2.0) mg/dL Ur Leukocyte Esterase Negative (Negative) Urine RBC 1 (0-5) /hpf Urine WBC 1 (0-5) /hpf Ur Squamous Epith Cells <1 (0-4) /hpf 01/06/20 01/06/20 01/06/20 Range/Units 18:26 18:26 18:26 WBC (3.8-10.6) k/uL RBC (3.80-5.40) m/uL Hgb (11.4-16.0) gm/dL Hct (34.0-46.0) % MCV (80.0-100.0) fL MCH (25.0-35.0) pg MCHC (31.0-37.0) g/dL RDW (11.5-15.5) % Plt Count (150-450) k/uL Neutrophils % % Lymphocytes % % Monocytes % % Eosinophils % % Basophils % % Neutrophils # (1.3-7.7) k/uL Lymphocytes # (1.0-4.8) k/uL Monocytes # (0-1.0) k/uL Eosinophils # (0-0.7) k/uL Basophils # (0-0.2) k/uL PT (9.0-12.0) sec INR (<1.2) APTT (22.0-30.0) sec Sodium 137 (137-145) mmol/L Potassium 3.9 (3.5-5.1) mmol/L Chloride 102 (98-107) mmol/L Carbon Dioxide 25 (22-30) mmol/L Anion Gap 10 mmol/L BUN 25 H (7-17) mg/dL Creatinine 0.64 (0.52-1.04) mg/dL Est GFR (CKD-EPI)AfAm >90 (>60 ml/min/1.73 sqM) Est GFR (CKD-EPI)NonAf 88 (>60 ml/min/1.73 sqM) Glucose 99 (74-99) mg/dL Plasma Lactic Acid Sudhakar 1.0 (0.7-2.0) mmol/L Calcium 9.7 (8.4-10.2) mg/dL Magnesium 2.5 H (1.6-2.3) mg/dL Total Bilirubin 0.7 (0.2-1.3) mg/dL AST 27 (14-36) U/L ALT 21 (4-34) U/L Alkaline Phosphatase 146 H (38-126) U/L Troponin I <0.012 (0.000-0.034) ng/mL Total Protein 7.2 (6.3-8.2) g/dL Albumin 4.2 (3.5-5.0) g/dL Urine Color Urine Appearance (Clear) Urine pH (5.0-8.0) Ur Specific [place] (1.001-1.035) Urine Protein (Negative) Urine Glucose (UA) (Negative) Urine Ketones (Negative) Urine Blood (Negative) Urine Nitrite (Negative) Urine Bilirubin (Negative) Urine Urobilinogen (<2.0) mg/dL Ur Leukocyte Esterase (Negative) Urine RBC (0-5) /hpf Urine WBC (0-5) /hpf Ur Squamous Epith Cells (0-4) /hpf Disposition Clinical Impression: Dehydration, General weakness, Leukocytosis Disposition: ADMITTED IP TO THIS [facility] Condition: Stable Is patient prescribed a controlled substance at d/c from ED?: No Referrals: Gordy Yeung DO [Primary Care Provider] - 1-2 days Decision to Admit Reason: Admit from EC Decision Date: 01/06/20 Decision Time: 20:58
[2020-01-06 18:56] LABS: Basophils # (A) 0.1 k/uL (0-0.2); Basophils % (A) 0 %; Eosinophils # (A) 0.1 k/uL (0-0.7); Eosinophils % (A) 1 %; HCT 42.4 % (34.0-46.0); HGB 14.2 gm/dL (11.4-16.0); Lymphocytes # (A) 1.9 k/uL (1.0-4.8); Lymphocytes % (A) 13 %; MCH 30.8 pg (25.0-35.0); MCHC 33.4 g/dL (31.0-37.0); MCV 92.3 fL (80.0-100.0); Mean Platelet Volume 6.8; Monocytes # (A) 0.5 k/uL (0-1.0); Monocytes % (A) 4 %; Neutrophils # (A) 12.2 k/uL (1.3-7.7); Neutrophils % (A) 82 %; Platelet Count 275 k/uL (150-450); RBC 4.59 m/uL (3.80-5.40); RDW 13.3 % (11.5-15.5)
[2020-01-06 18:57] LABS: Appearance,Urine Clear (Clear); Bilirubin,Urine Negative (Negative); Blood,Urine Trace (Negative); Color,Urine Light Yellow; Glucose,Urine (UA) Negative (Negative); Ketones,Urine Negative (Negative); Leukocyte Esterase,Urine Negative (Negative); Nitrite,Urine Negative (Negative); PH, Urine 7.5 (5.0-8.0); Protein,Urine Negative (Negative); RBC,Urine 1 /hpf (0-5); Specific Gravity,Urine 1.005 (1.001-1.035); Squamous Epithelial Cell,Urine <1 /hpf (0-4); Urobilinogen,Urine <2.0 mg/dL (<2.0); WBC,Urine 1 /hpf (0-5)
[2020-01-06 19:07] LABS: ALT 21 U/L (4-34); AST 27 U/L (14-36); African American GFR (CKD) >90 (>60 ml/min/1.73 sqM); Albumin 4.2 g/dL (3.5-5.0); Alkaline Phosphatase 146 U/L (38-126); Anion Gap 10 mmol/L; Blood Urea Nitrogen 25 mg/dL (7-17); Calcium 9.7 mg/dL (8.4-10.2); Carbon Dioxide 25 mmol/L (22-30); Chloride 102 mmol/L (98-107); Glucose 99 mg/dL (74-99); Magnesium 2.5 mg/dL (1.6-2.3); Non-African American GFR(CKD) 88 (>60 ml/min/1.73 sqM); Potassium 3.9 mmol/L (3.5-5.1); Sodium 137 mmol/L (137-145); Total Bilirubin 0.7 mg/dL (0.2-1.3); Total Protein 7.2 g/dL (6.3-8.2)
[2020-01-06 19:14] LABS: INR 0.9 (<1.2); Partial Thromboplastin Time 22.2 sec (22.0-30.0); Prothrombin Time 9.7 sec (9.0-12.0)
--- NOTE | 2020-01-06 19:26 | XR ---
EXAMINATION TYPE: XR chest 2V DATE OF EXAM: 01/06/2020 COMPARISON: 12/21/2019 HISTORY: Short of breath TECHNIQUE: FINDINGS: There is no heart failure nor confluent pneumonic infiltrate. Costophrenic angles are clear . Bony thorax is intact. IMPRESSION: No active cardiopulmonary disease. No change.
--- NOTE | 2020-01-06 20:14 | US ---
EXAMINATION TYPE: US gallbladder DATE OF EXAM: 01/06/2020 COMPARISON: CT CLINICAL HISTORY: ab pain. Generalized ABD pain, pt states constipation, GB removed EXAM MEASUREMENTS: Liver Length: 13.7 cm CBD: 0.7 cm Right Kidney: 11.9 x 4.9 x 4.6 cm Pancreas: wnl, panc duct visualized= 1mm tail obscured by overlying bowel gas Liver: Visualized portions appeared wnl Gallbladder: Surgically absent Evidence for sonographic Martinez's sign: No CBD: wnl Right Kidney: wnl, lower pole gassed out IMPRESSION: Cholecystectomy. No dilated ducts. No focal liver defect.
[2020-01-06] MEDS ORDERED: ACETAMINOPHEN TAB 325 MG TAB PO PRN (20:54)
[2020-01-06] MEDS ORDERED: NALOXONE 0.4 MG/ML 1 ML VIAL IV PRN (20:54)
[2020-01-06] MEDS: SODIUM CHLORIDE 0.9% 1,000 ML IV SCH (21:39)
[2020-01-07] MEDS: SODIUM CHLORIDE 0.9% 1,000 ML IV SCH (05:10)
[2020-01-07 08:44] VITALS: BP 151/45; PULSE 74; TEMP 97.7
[2020-01-07] MEDS ORDERED: ALPRAZolam 0.5 MG TAB PO PRN (09:48)
[2020-01-07] MEDS ORDERED: amLODIPine 10 MG TAB PO SCH (10:00)
[2020-01-07] MEDS ORDERED: PANTOPRAZOLE 40 MG TABLET PO SCH (10:00)
[2020-01-07] MEDS ORDERED: lisinopriL 20 MG TAB PO SCH (10:00)
[2020-01-07] MEDS ORDERED: atenoloL 25 MG TAB PO SCH (10:00)
[2020-01-07 13:54] VITALS: BMI 25.0
[2020-01-07] MEDS ORDERED: polyethylene glycoL 3350 17 GM POWD.PACK PO PRN (14:04)
[2020-01-07] MEDS ORDERED: LACTULOSE 20 GM/30 ML CUP PO PRN (14:04)
[2020-01-07] MEDS ORDERED: DOCUSATE 100 MG CAP PO PRN (14:04)
[2020-01-07] MEDS ORDERED: DICYCLOMINE 20 MG TAB PO PRN (14:04)
[2020-01-07] MEDS ORDERED: ONDANSETRON ODT 4 MG TAB PO PRN (14:04)
[2020-01-07] MEDS ORDERED: IOPAMIDOL CONTRAST (ORAL USE) VIAL PO PRN (14:05)
[2020-01-07] MEDS ORDERED: busPIRone HCl 5 MG TAB PO SCH (14:12)
--- NOTE | 2020-01-07 14:19 | P.CN ---
Psychiatric Consult - . Consult date: 01/07/20 Consult:: 01/07/20 14:13 IDENTIFYING DATA: This patient is a 74-year-old female who currently lives alone in the apartment has 2 sons and 2 daughters and is retired. HISTORY OF PRESENT ILLNESS: The patient presented to the hospital with complaints of generalized weakness dehydration poor appetite and vomiting. Patient states that this has been going on for several months however has been tolerating liquids according to ER report. Patient was admitted to observation unit. Patient to wbcs were elevated at 15. Psychiatry is consulted for depression. Patient was seen at the bedside and claims that she is feeling frustrated at home due to poor appetite dizziness and claims that "I must avoid high blood pressure" which has been going on for several months now. She states that her medications were recently changed by her primary care physician and does not know what medication she is cheated she is taking. She states that for the past 2 weeks she has been on Celexa however claims that she is feeling worse and stopped taking it. She claims that she is having a "weird feeling" after taking it. She states that she is currently depressed and feeling overwhelmed with stress. She states that she has been lonely and tired at times. She states that she feels that she is not being taken care of by her family. She claims that her anxiety at this time is mild however was bad earlier. She claims that she has a poor appetite. She states that her sleep is poor approximately 3-4 hours.. At this time patient denies any suicidal or homical ideations, intent or plan. Patient denies any auditory, visual hallucinations and denies any paranoia or delusions. Patients admits to using cigarettes and alcohol recreational drugs. PAST PSYCHIATRIC HISTORY: Patient has a a history of in depression.. She claims that she is currently on Celexa and Xanax however has not taking either one of them for quite some time now. Patient denies any previous psychiatric hospitalizations. Patient denies any psychiatric outpatient follow-up. Patient denies any history of suicide attempts in the past. PAST MEDICAL HISTORY: GERD, hyperlipidemia, hypertension. ALLERGIES: as per EMR. CHEMICAL DEPENDENCY HISTORY: as per HPI. FAMILY PSYCHIATRIC/SUBSTANCE USE HISTORY: denies SOCIAL HISTORY: Patient was born and raised in [facility] and claims that she is . She states that she currently has 2 sons and 2 daughters. 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 She states that she retired 10 years ago. MENTAL STATUS EXAM: General Appearance: Patient appears to be stated age is alert, directable and argumentative at times.. Patient appears to have fair hygiene and grooming wearing hospital gown with fair eye contact. Behavior: Patient is calmly lying in bed without any agitated behavior. Argumentative at times. Speech: Patient's speech is fluent and nonpressured. Mood/Affect: Patient reports their mood is "depressed", affect is congruent Suicidality/Homicidality: Patient denies having any suicidal or homicidal ideation intent or plan. Perceptions: Patient denies any visual hallucinations and denies any auditory hallucinations Though content/process: There is no evidence of any delusional thought content and thought process is linear and goal-directed. Focused somatically on her symptoms. Memory and concentration: AOX3, grossly intact for the purposes of this session. Can spell "WORLD" backwards Judgment and insight: limited IMPRESSIONS: Major depressive disorder, mild Anxiety disorder specified Nicotine dependence PLAN: -At this time patient DOES NOT meet criteria for inpatient psychiatric admission. -Delirium precautions recommended with patient including - avoiding use of narcotics and SURVEYOR HYDROGRAPHIC sedatives, limit anticholinergic medications when possible, frequent re-orientation, minimize use of restraints, open window shades during the day and close them at night -Would recommend the following medication changes/additions: Discontinue Xanax and Celexa at this time. Spoke with patient about starting her on BuSpar 7.5 mg twice a day for anxiety. Also recommending to add Remeron 15 mg daily at bedtime for insomnia/appetite/mood. Patient asked several questions with medications and right ear address concerns and answered questions. Patient was however hesitant about taking medications and claims that she'll think about it. -Will continue to follow along if needed and patient stays in the hospital. -Recommended that aids social worker give patient a patient resources for psychiatry and individual therapy in the community. -Psychiatry will sign off at this point, please contact with any questions.
--- NOTE | 2020-01-07 15:34 | HP ---
HISTORY AND PHYSICAL DATE OF SERVICE: 01/07/2020 CHIEF COMPLAINT: Weakness, dizziness, and diminished p.o. intake. HISTORY OF PRESENT ILLNESS: This 74-year-old woman with a past medical history of multiple medical problems including history of GERD, hypertension, hyperlipidemia, being followed by Dr. Yeung in the outpatient, complaining of severe weakness. The patient had ( ) also. Patient also feeling depressed. The patient reports that the patient is by herself in the apartment and the patient is not able to afford any other living situation. The patient is only able to tolerate liquids and there was an episode early in the morning yesterday. The patient came to [facility] and admitted for evaluation. There is no history of fever or rigors. No history of headache, loss of consciousness or seizure. White count is elevated to 15. Magnesium was 2.5. UA was unremarkable. The chest x-ray which was personally reviewed by me showed no active changes. The gallbladder ultrasound showed cholecystectomy. PAST MEDICAL HISTORY: History of GERD, hypertension, history of cholecystectomy, history of hysterectomy. MEDICATIONS ARE: 1. Clear X that is polyethylene glycol 17 g p.o. daily p.r.n. 2. Zofran 4 mg q.8 p.r.n. 3. Lactulose p.r.n. 4. Hydrochlorothiazide 12.5 mg daily. 5. Colace 100 mg p.o. daily p.r.n. 6. Dicyclomine 20 mg q.i.d. p.r.n. 7. Lipitor 40 mg p.o. daily. 8. Atenolol 25 mg p.o. b.i.d. 9. Amlodipine. 10.Benazepril 1 capsule p.o. daily. 11.Ecotrin 81 mg p.o. 12.Xanax 0.5 q.h.s. p.r.n. ALLERGIES: None. FAMILY HISTORY: No history of heart attacks or strokes in the family. SOCIAL HISTORY: History of smoking, continued, ongoing. REVIEW OF SYSTEMS: ENT No history of diminished hearing or vision. CARDIOVASCULAR No angina or palpitations. RESPIRATORY No cough, no hemoptysis. GI No nausea, vomiting, or diarrhea. No dysuria or hematuria. NERVOUS No numbness or weakness. ALLERGY/IMMUNOLOGY No asthma or hayfever. MUSCULOSKELETAL As mentioned earlier. HEMATOLOGY/ONCOLOGY Negative. ENDOCRINE No history of diabetes or hypothyroidism. CONSTITUTIONAL As mentioned earlier. DERMATOLOGY Negative. RHEUMATOLOGY Negative, PSYCHIATRY As mentioned earlier. PHYSICAL EXAMINATION: The patient is alert and oriented x3. Pulse 56, blood pressure 105/60, respirations 16, temperature 98.2, pulse ox 97% on room air. HEENT: Conjunctivae normal. Oral mucosa moist. NECK: No jugular venous distention. No lymph node enlargement. CARDIOVASCULAR: S1, S2, muffled. No S3, no S4, RESPIRATORY: Diminished breath sounds at the bases. No rhonchi, no crackles. ABDOMEN: Soft, obese, nontender. No mass palpable. LEGS: No edema, no swelling. NERVOUS SYSTEM: Higher functions mentioned earlier. Moves all four limbs. No focal motor or sensory deficits. LYMPHATICS: No lymph node in neck or axilla. SKIN: No rash. JOINTS: No active deforming arthropathy. LABS: At this time shows WBC 15, hemoglobin 14.2, sodium 137, potassium 3.8. Other labs are noted. ASSESSMENT: 1. Generalized weakness and tiredness, for evaluation, possible diminished p.o. intake. 2. Relative hypotension. 3. Increased WBC, for evaluation. 4. Possible depression. 5. Gastroesophageal reflux disease. 6. Hypertension. 7. Hyperlipidemia. 8. Cholecystectomy. 9. History of hysterectomy. 10.History of nicotine dependence. 11.History of anxiety. 12.FULL CODE. RECOMMENDATIONS AND DISCUSSION: This 74-year-old woman who presented with multiple complex medical issues, we will monitor the patient closely, continue the current management, continue symptomatic treatment. I recommend Psychiatry as a GI evaluation. I would also recommend a CT scan of the abdomen, pelvis and chest to complete the workup. Otherwise, we will resume the home medications and Dr. Yeung will follow tomorrow. Overall prognosis guarded because of multiple complex medical issues. Exact etiology of the symptoms are unknown at this time but we will continue to monitor. MMODL / IJN: [id number] /
[2020-01-07] MEDS ORDERED: CITALOPRAM HYDROBROMIDE 10 MG TAB PO SCH (21:00)
[2020-01-07] MEDS ORDERED: MIRTAZAPINE 15 MG TAB PO SCH (21:00)
[2020-01-08] MEDS ORDERED: ATORVASTATIN 40 MG TAB PO SCH (09:00)
[2020-01-08] MEDS ORDERED: ASPIRIN 81 MG PO SCH (09:00)
== END 2020-01-07 14:23 | disposition left against medical advice (07) ==
LOC: EC 16:55 → 1SOBS 20:55
PROVIDERS: ADMIT Internal Medicine; ATTEND Internal Medicine
DX: E86.0 Dehydration (principal); D72.829 Elevated white blood cell count, unspecified; R53.1 Weakness; R11.10 Vomiting, unspecified; E78.5 Hyperlipidemia, unspecified; R42 Dizziness and giddiness; I95.9 Hypotension, unspecified; F17.200 Nicotine dependence, unspecified, uncomplicated; I10 Essential (primary) hypertension; K21.9 Gastro-esophageal reflux disease without esophagitis; Z90.49 Acquired absence of other specified parts of digestive tract; Z90.710 Acquired absence of both cervix and uterus; F32.9 Major depressive disorder, single episode, unspecified; F41.9 Anxiety disorder, unspecified
CPT/HCPCS: 96360; 96361; 99285; 36415; 93005; 80053; 84443; 83605; 83735; 84484; 85025; 85610; 85730; 81001; 71046; 76705; G0378 ×2

== ENCOUNTER → 2020-01-08 | Outpatient (CLI) | payer MEDICARE, OTHER ==
[2020-01-08 16:00] LABS: T4, Free (Free Thyroxine) 1.2 ng/dL (0.80-1.80)
== END | disposition home or self-care (01) ==
LOC: LABWHC1 09:33
PROVIDERS: ATTEND Psychiatry & Neurology Neurology
DX: G20 Parkinson's disease (principal); G31.84 Mild cognitive impairment of uncertain or unknown etiology; R26.81 Unsteadiness on feet; Z79.899 Other long term (current) drug therapy
CPT/HCPCS: 36415; 82306; 82607; 84439; 84443

== ENCOUNTER → 2020-03-26 | Outpatient (CLI) | payer MEDICARE, OTHER ==
[2020-03-26 09:15] LABS: Basophils % (A) 0 %; Eosinophils # (A) 0.1 k/uL (0-0.7); Eosinophils % (A) 1 %; HCT 45.5 % (34.0-46.0); HGB 14.8 gm/dL (11.4-16.0); Lymphocytes # (A) 1.8 k/uL (1.0-4.8); Lymphocytes % (A) 20 %; MCH 30.9 pg (25.0-35.0); MCHC 32.5 g/dL (31.0-37.0); MCV 94.9 fL (80.0-100.0); Mean Platelet Volume 6.7; Monocytes # (A) 0.4 k/uL (0-1.0); Monocytes % (A) 5 %; Neutrophils # (A) 6.3 k/uL (1.3-7.7); Neutrophils % (A) 73 %; Platelet Count 289 k/uL (150-450); RBC 4.79 m/uL (3.80-5.40); RDW 13.5 % (11.5-15.5); WBC 8.6 k/uL (3.8-10.6)
[2020-03-26 09:28] LABS: Potassium 4.3 mmol/L (3.5-5.1); Prothrombin Time 10.1 sec (9.0-12.0)
== END | disposition home or self-care (01) ==
LOC: LABPAT 07:22
PROVIDERS: ATTEND Orthopaedic Surgery
DX: Z01.812 Encounter for preprocedural laboratory examination (principal); M17.11 Unilateral primary osteoarthritis, right knee
CPT/HCPCS: 36415; 80051; 85025; 85610; 87070

== ENCOUNTER 2020-04-07 10:46 | Day surgery (SDC) | payer MEDICARE, OTHER ==
[2020-04-01 15:35] VITALS: BMI 24.0
--- NOTE | 2020-04-06 09:48 | HP ---
HISTORY AND PHYSICAL REASON FOR ADMISSION: Surgery scheduled for 04/07/2020 HISTORY OF PRESENT ILLNESS: Shana Pennington is a 75-year-old patient seen with symptomatic right knee osteoarthritis. After treatment options were discussed with her, she elected to proceed with right total knee arthroplasty. Consent was obtained. Medical clearance was provided by Dr. Yeung. PAST MEDICAL HISTORY: Hypertension, hyperlipidemia. PAST SURGICAL HISTORY: Cholecystectomy and hysterectomy. MEDICATIONS: Amlodipine, atenolol, atorvastatin. ALLERGIES: None. SOCIAL HISTORY: She denies current tobacco use. PHYSICAL EVALUATION OF THE RIGHT KNEE: Range of motion is -3 to 115. Crepitus medial patellofemoral compartments with range of motion. Pain with patellofemoral compression. Ligaments stable. Hip rotation without pain. Distal neurovascular exam is intact. RADIOGRAPHS: Radiographs of the right knee reveal severe osteoarthritic changes. IMPRESSION: 1. Right knee osteoarthritis. 2. Hypertension. 3. Hyperlipidemia. PLAN: Right total knee arthroplasty. Surgery 04/07/2020. MMODL / IJN: [id number] /
[~2020-04-07 10:46] MED LIST changes: +ACETAMINOPHEN TAB 500 MG TAB PO PRN; +DEXAMETHASONE SOD PHOSPHATE 4 MG/ML 1 ML VIAL IV ONE; +HYDROmorphone 0.5 MG/0.5 ML SYRINGE IVP PRN; -LACTATED RINGERS 1,000 ML IV SCH; +LIDOCAINE 1% (10MG/ML) FOR IV START INTRADERMA PRN; +MELOXICAM 7.5 MG TAB PO PRN; +MIDAZOLAM 2 MG/2 ML VIAL IV PRN; +ONDANSETRON 4 MG/2 ML VIAL IVP ONE; +ROPIVACAINE 246.25 MG, EPINEPHrine 0.5 MG, KETOROLAC 30 MG, cloNIDine HCL/PF 80 MCG, WA... MISCELLANE PRN; +TRANEXAMIC ACID 1,000 MG in SODIUM CHLORIDE 0.9% 100 ML IVPB PRN
[2020-04-07] MEDS: LACTATED RINGERS 1,000 ML IV SCH ×2 (11:52→22:28)
[2020-04-07] MEDS ORDERED: MIDAZOLAM 2 MG/2 ML VIAL IVP ONE (12:04)
[2020-04-07] MEDS ORDERED: TRANEXAMIC ACID 1,000 MG/10 ML VIAL ONE (12:27)
[2020-04-07] MEDS ORDERED: PROPOFOL 10 MG/ML 20 ML VIAL IV ONE (12:27)
[2020-04-07] MEDS ORDERED: SODIUM CHLORIDE 0.9% 100 ML BAG ONE (12:27)
[2020-04-07] MEDS ORDERED: ceFAZolin 3,000 MG in SODIUM CHLORIDE 0.9% IRRIGATIO 3,000 ML IRRIGATION ONE (13:03)
[2020-04-07] MEDS ORDERED: HYDROcodone/APAP 5-325MG 1 EACH TAB PO PRN ×2 (14:05)
[2020-04-07] MEDS ORDERED: NALOXONE 0.4 MG/ML 1 ML VIAL IV PRN (14:05)
[2020-04-07] MEDS ORDERED: HYDROmorphone 0.2 MG/1 ML SYRINGE IVP PRN (14:05)
[2020-04-07] MEDS ORDERED: ONDANSETRON 4 MG/2 ML VIAL IVP PRN (14:05)
[2020-04-07] MEDS ORDERED: HYDROmorphone 0.5 MG/0.5 ML SYRINGE IVP PRN ×2 (14:05)
--- NOTE | 2020-04-07 14:05 | P.OP ---
Date of Procedure: 04/07/20 Preoperative Diagnosis: Right knee osteoarthritis Postoperative Diagnosis: Right knee osteoarthritis Procedure(s) Performed: Right total knee arthroplasty Implants: 1. Depuy attune size 5 right cruciate retaining cemented femur 2. Depuy attune size 5 fixed bearing cemented tibial baseplate 3. Depuy attune size 5 fixed bearing cruciate retaining 10 mm poly-integral inserted 4. Depuy attune 35 mm all polyethylene cemented patella Anesthesia: regional (Adductor canal catheter), local, spinal Surgeon: Akhil Stahl [employer] Cage Cashier #1: Bradley Rodriguez Estimated Blood Loss (ml): 40 Pathology: other (Bone) Condition: stable Disposition: PACU Indications for Procedure: 75-year-old patient seen with symptomatic right knee osteoarthritis. After treatment options were discussed, she elected to proceed with total knee arthro plasty. Operative Findings: See description of procedure Description of Procedure: Patient was taken to the operative suite after having an adductor canal catheter placed by the department of anesthesia. Patient underwent a spinal anesthetic by the department of anesthesia. Patient was given preoperative IV intake antibiotics and TXA. A well-padded tourniquet was placed about the right lower extremity. The lower extremity was then prepped and draped in the normal sterile orthopedic fashion. The extremity was elevated, a tourniquet was in sufflated to 300. A standard anterior incision was made sharply through skin. Dissection was taken down through the subcutaneous soft tissues down to the extensor mechanism. A medial arthrotomy was performed, patella was everted and knee was flexed. There was advanced osteoarthritis noted. I introduced my distal intramedullary femoral drill. I then introduced the distal femoral cutting jig. Brando MUNSON secured the cutting jig with 2 pins. I held retractors in position while Brando MUNSON performed the distal femoral resection through the guide area we now removed her distal femoral cutting guide. We now placed our 4-in-1 femoral cutting block and positioned and it was secured with 2 pins by Brando MUNSON while I held the block in position. The distal femoral finishing was now completed. A proximal tibial cutting guide was positioned. I held the guide in the appropriate position with both hands well Brando MUNSON inserted stabilizing pins into the guide. Proximal tibial cut was made. We now placed a trial femoral component into position, along with an appropriate size tibial tray and insert. We now took the knee through range of motion and had full extension good flexion and good overall soft tissue balance noted. The patella was everted and stabilized with 2 towel clips held by Brando MUNSON while I performed a flush with patellar quad tendon utilizing a fresh sawblade. We templated the patella, appropriate drill holes were made. An appropriate trial patella was positioned, knee was taken through full range of motion with the patella tracking very nicely. The trial patella was removed. Drill holes were made through the femoral component. All trial components were removed after marking off the appropriate rotation of the tibia. Retractors were now positioned along the proximal tibia. An appropriate keel punch was made with the appropriate size tibial guide by myself on Brando MUNSON assisted by holding retractors. At this point appropriate size implants were chosen and opened. The joint was irrigated copiously with pulse lavage mechanical irrigation. The posterior capsule was infiltrated with local analgesic. The wound was irrigated with pulse lavage mechanical irrigation. We mixed antibiotic methylmethacrylate. We placed the knee into flexion. We placed multiple retractors assisted by Brando MUNSON to expose the proximal tibia. Once the methyl methacrylate was ready, the tibial component was cemented into place removing any excess methylmethacrylate form by both myself and Brando MUNSON. The femoral component was cemented into place removing the removing any excess methylmethacrylate performed by both myself and Brando MUNSON. We then inserted the appropriate size polyethylene tibial insert. We made sure that it was locked into position. We took the knee into full extension, and then back in a flexion making sure we had removed any excess methylmethacrylate. The patellar component was then cemented down and secured with clamp. Excess methylmethacrylate removed. We kept the knee in full extension, patellar clamp in position until methylmethacrylate had hardened. Once it had hardened the patellar clamp was removed. The knee was taken through full range of motion. The patella tracked nicely. There was good soft tissue balancing. The tourniquet was now released. Additional hemostasis was achieved via electrocautery. A second gram of TXA was given. The wound again was irrigated with pulse lavage mechanical irrigation. The superficial soft tissues were infiltrated local analgesic. The extensor mechanism was repaired with Vicryl. We checked the repair with range of motion and it was stable. The subcutaneous soft tissues were repaired with Vicryl in layers. The skin was approximated with pernio/Dermabond. Sterile dressings were applied followed by loose web roll and Adams bandage. The patient was transferred to a bed, and taken to recovery in stable and satisfactory condition. Brando MUNSON assisted with this complex procedure.
[2020-04-07] MEDS ORDERED: SODIUM CHLORIDE 0.9% 1,000 ML IV SCH (14:15)
[2020-04-07] MEDS ORDERED: ROPIVACAINE 0.2%-NS ON-Q PUMP 1,090 MG, EMPTY PAIN BALL 1 EACH MISCELLANE PRN (14:44)
--- NOTE | 2020-04-07 15:01 | XR ---
EXAMINATION TYPE: XR knee limited RT DATE OF EXAM: 04/07/2020 COMPARISON: NONE TECHNIQUE: Two views submitted HISTORY: Post op FINDINGS: There is a prosthetic knee in near anatomic alignment. There is soft tissue edema and emphysema. IMPRESSION: 1. Postoperative change. Appears in near-anatomic alignment
--- NOTE | 2020-04-07 15:20 | P.ANPRN ---
Procedure Note - Anesthesia - Nerve Block Performed Right Adductor Canal Infusion Time Out Performed: Yes Date of Procedure: 04/07/20 Procedure Start Time: 12:03 Procedure Stop Time: 12:14 Location of Patient: PreOp Indication: Acute Post-Operative Pain, Requested by Surgeon Sedation Type: Sedate with meaningful contact maintained Preparation: Sterile Prep, Sterile Dressing Position: Supine Catheter: Indwelling Needle Types: Pajunk Needle Gauge: 21 Ultrasound used to visualize needle placement: Yes Ultrasound used to observe medication spread: Yes Blood Aspirated: No Pain Paresthesia on Injection Noted: No Resistance on Injection: Normal Image Stored and Saved: Yes Events: Uneventful and Well Tolerated (ropi .5% 20cc plus dexamethasone 4mg)
[2020-04-07] MEDS ORDERED: HYDROmorphone 0.5 MG/0.5 ML SYRINGE IVP ONE (16:20)
[2020-04-07 17:55] VITALS: RESP 18
[2020-04-07] MEDS ORDERED: SENNOSIDES-DOCUSATE SODIUM 1 EACH TAB PO SCH (21:00)
[2020-04-08] MEDS: ACETAMINOPHEN TAB 325 MG TAB PO PRN ×2 (00:33→12:45)
[2020-04-08 06:59] LABS: Basophils % (A) 0 %; Eosinophils % (A) 0 %; HCT 36.3 % (34.0-46.0); HGB 12.5 gm/dL (11.4-16.0); Lymphocytes # (A) 0.8 k/uL (1.0-4.8); Lymphocytes % (A) 5 %; MCH 31.9 pg (25.0-35.0); MCHC 34.4 g/dL (31.0-37.0); Mean Platelet Volume 6.7; Monocytes # (A) 0.5 k/uL (0-1.0); Monocytes % (A) 3 %; Neutrophils # (A) 14.2 k/uL (1.3-7.7); Neutrophils % (A) 91 %; Platelet Count 210 k/uL (150-450); RBC 3.91 m/uL (3.80-5.40); RDW 12.8 % (11.5-15.5); WBC 15.6 k/uL (3.8-10.6)
--- NOTE | 2020-04-08 07:09 | P.PN ---
Progress Note - Text Progress Note Date: 04/08/20 Postoperative day # 1 status post total Right knee arthroplasty, and adductor canal catheter placed for postoperative analgesia, currently at ropivacaine 0.2% 8 mL per hour and continuous infusion, visual analogue scale is 4/10, patient using oral pain medication for breakthrough pain. Assessment and plan= Acute postoperative pain, adductor canal catheter for pain control, we'll continue the same management.
[2020-04-08 07:31] VITALS: BP 120/67; PULSE 72; TEMP 97.7
[2020-04-08] MEDS ORDERED: ENOXAPARIN 30 MG/0.3 ML SYRINGE SQ SCH (09:00)
[2020-04-08] MEDS ORDERED: PANTOPRAZOLE 40 MG TABLET PO PRN (09:03)
[2020-04-08] MEDS ORDERED: atenoloL 25 MG TAB PO SCH (09:15)
--- NOTE | 2020-04-08 10:25 | P.PN ---
Subjective Progress Note Date: 04/08/20 Principal diagnosis: status post right total knee arthroplasty Patient evaluated at bedside today, she is resting comfortably. She's ambulated well with therapy, her pain is well-controlled. She denies any headaches, lightheadedness, chest pain, shortness of breath, fever or chills. She is not interested in any oral pain medication to go home with. Objective - Vital Signs Vital signs: Vital Signs Temp 97.7 F 04/08/20 07:30 Pulse 72 04/08/20 07:30 Resp 18 04/08/20 07:30 BP 120/67 04/08/20 07:30 Pulse Ox 99 04/08/20 07:30 Intake & Output 04/07/20 04/08/20 04/08/20 18:59 06:59 18:59 Intake Total 751 600 Output Total 40 Balance 711 600 Weight 63.1 kg Intake: IV 751 Intake, IV Titration 600 Amount Sodium Chloride 0.9% 1, 600 000 ml @ 50 mls/hr IV . Q20H [facility] Rx#:[id number] Output: Estimated Blood Loss 40 Other: Voiding Method Toilet Toilet # Voids 1 4 - Exam Right lower extremity: Incision is clean, dry, and intact. The foam dressing is in good condition. There is minimal soft tissue swelling and ecchymosis surrounding the medial and lateral aspects of the incision. Calf is soft, no tenderness with palpation. Plantar flexion, dorsiflexion, EHL, FHL are intact. Sensory exam to light touch throughout the extremity is intact, dorsal pedis pulses 2+. - Labs CBC & Chem 7: 04/08/20 06:27 Labs: Abnormal Lab Results - Last 24 Hours (Table) 04/08/20 Range/Units 06:27 WBC 15.6 H (3.8-10.6) k/uL Neutrophils # 14.2 H (1.3-7.7) k/uL Lymphocytes # 0.8 L (1.0-4.8) k/uL Assessment and Plan Assessment: Status post right total knee arthroplasty Plan: Pain control, patient will utilize [id number] Tylenol DVT prophylaxis, aspirin 81 mg twice a day Wound care instructions were discussed Icing and elevating techniques discussed Home health care after discharge Medical recommendations Plan for discharge home today Time with Patient: Less than 30
--- NOTE | 2020-04-08 10:27 | P.DS ---
Providers Date of admission: 04/07/2020 Expected date of discharge: 04/08/20 Attending physician: Akhil Stahl Consults: 04/07/20 14:05 Consult Physician Routine Consulting Provider: Gordy Yeung Reason/Comments: Medical management Do you want consulting provider notified?: Yes Primary care physician: Gordy Yeung Hospital Course: Date of admission: 04/07/2020 Date of discharge: 04/08/2020 Admission diagnosis: Status post right total knee arthroplasty Discharge diagnosis: Same Attending physician: Dr. Stahl Surgical procedures: Right total knee arthroplasty Brief history: Patient is a 75-year-old female with a history of progressive primary right knee osteoarthritis. At this point patient has failed conservative treatment measures and has opted to proceed with a elective right total knee arthroplasty. Hospital course: Details of patient's surgery can be found in operative report. Patient tolerated the procedure well and was subsequently transported to orthopedic floor. Patient's orthopeidc and medical care was provided daily. Patient had daily laboratory tests performed for evaluation of overall blood counts. Patient had daily physical therapy to include strengthening range of motion as well as education with walker ambulation. Patient was treated with for Lovenox their postoperative DVT prophylaxis during their inpatient stay. Patient was noted to have a relatively uneventful postoperative course. Patient reported satisfactory pain control with oral pain medications by postoperative day 0. Patient showed satisfactory progress with physical therapy. Patient moved steadily through the program and had no difficulty meeting the goals by postoperative day 1. Given patient's otherwise satisfactory course and having met physical therapy goals, plan is to discharge patient home on postoperative day 1. Discharge condition/disposition: Patient will be discharged home in stable condition. Discharge medications: Instructions are given on resumption of patient's normal daily medications per primary care recommendation, in addition patient will be prescribed aspirin 81 mg. Discharge instructions: 1. Wound care and infection precautions, keep incision dry and covered while showering, no lotions, creams, moisturizers. No soaking, tubs, pools, hottubs. Do not scrub over the incision. Okay to remove home dressing on 04/17/2020, continue to keep incision dry and covered while showering 2. Weight-bear as tolerated with walker / cane until follow-up. 3. Ice and elevate when necessary. Do not exceed 20 minutes per hour with ice pack. 4. Utilize compression sleeve until seen at first follow up appointment. 5. Visiting nursing care. 6. Home physical therapy including home CPM. 7. Pain meds and anticoagulants per prescription. 8. Pain medication has potential to cause constipation. Increase oral fluid and fiber intake. Contact primary care provider if you have not had a bowel movement within 48 hours after discharge 9. No anti-inflammatory medication until discussed at first post operative visit, this including Motrin, Aleve, Mobic, Diclofenac 10. Follow up in office at 2 weeks postop with Brando Rodriguez PA-C 11. Follow up with your primary care doctor 7-10 days after discharge. 12. Contact [facility] with any questions, . Procedures: Right total knee arthroplasty Patient Condition at Discharge: Good Plan - Discharge Summary Discharge Rx Participant: Yes New Discharge Prescriptions: New Aspirin [Adult Low Dose Aspirin EC] 81 mg PO BID #60 tablet. No Action amLODIPine BESYLATE/BENAZEPRIL [Amlodipine-Benazepril 10-20 mg] 1 cap PO DAILY atenoloL [Atenolol] 25 mg PO BID Atorvastatin [Lipitor] 40 mg PO HS Ibuprofen [Motrin] 800 mg PO DIRECTED PRN PRN Reason: Pain Acetaminophen Tab [Tylenol Tab] 500 mg PO DIRECTED PRN PRN Reason: Pain Omeprazole Magnesium [PriLOSEC OTC] 20 mg PO DAILY PRN PRN Reason: Heartburn Citalopram Hydrobromide [Citalopram HBr] 10 mg PO HS Discharge Medication List amLODIPine BESYLATE/BENAZEPRIL [Amlodipine-Benazepril 10-20 mg] 1 cap PO DAILY 12/24/14 [History] atenoloL [Atenolol] 25 mg PO BID 12/24/14 [History] Atorvastatin [Lipitor] 40 mg PO HS 01/07/20 [History] Acetaminophen Tab [Tylenol Tab] 500 mg PO DIRECTED PRN 04/01/20 [History] Citalopram Hydrobromide [Citalopram HBr] 10 mg PO HS 04/01/20 [History] Ibuprofen [Motrin] 800 mg PO DIRECTED PRN 04/01/20 [History] Omeprazole Magnesium [PriLOSEC OTC] 20 mg PO DAILY PRN 04/01/20 [History] Aspirin [Adult Low Dose Aspirin EC] 81 mg PO BID #60 tablet. 04/08/20 [Rx] Follow up Appointment(s)/Referral(s): Gordy Yeung DO [Primary Care Provider] - 1 Week Bradley Rodriguez PAC [PHYSICIAN ASTROPHYSICS PROFESSOR] - 04/23/20 2:20 pm Activity/Diet/Wound Care/Special Instructions: Orthopedic Discharge Instructions: 1. Wound care and infection precautions, keep incision dry and covered while showering, no lotions, creams, moisturizers. No soaking, pools, hot tubs. Do not scrub over incision. Okay to remove foam dressing on 04/17/2020, continue to keep incision covered while showering 2. Weight-bear as tolerated with walker / cane until follow-up. 3. Ice and elevate when necessary. Do not exceed 20 minutes per hour with ice pack. 4. Utilize compression sleeve until seen at first follow up appointment. 7. No anti-inflammatory medication until discussed at first post operative visit, this including Motrin, Aleve, Mobic, Diclofenac. 8. Follow up in office at 2 weeks postop with Brando Rodriguez PA-C 9. Follow up with your primary care doctor 7-10 days after discharge. 10. Contact [facility] with any questions, . Discharge Disposition: HOME WITH HOME HEALTH SERVICES
--- NOTE | 2020-04-08 15:02 | P.CONS ---
History of Present Illness - Reason for Consult Consult date: 04/08/20 Medical management gastroesophageal reflux disease, hypertension, anxiety, Requesting physician: Akhil Stahl - Chief Complaint Right knee osteoarthritis, status post right total knee arthroplasty - History of Present Illness This is a 75-year-old female with past medical history of gastroesophageal reflux disease, hypertension, hyperlipidemia, progressive osteoarthritis, psoriasis, anxiety, depression, recently quit smoking 3 weeks ago and multiple other medical issues. Patient is status post elective right total knee arthroplasty. Tolerated procedure well. Ambulating with walker without difficulty. Pain controlled. Passing flatus. Denies nausea vomiting or diarrhea. Denies lightheadedness, dizziness or focal deficits. Denies chest pain, palpitations or shortness of breath.VSS. Afebrile. Review of Systems Constitutional: Denied any fatigue denied any fever. Cardio vascular: denied any chest pain, palpitations Gastrointestinal denied any nausea vomiting Pulmonary: Denied any shortness of breath cough Neurologic denied any new focal deficits ROS Statement: Those systems with pertinent positive or pertinent negative responses have been documented in the HPI. ROS Other: All systems not noted in ROS Statement are negative. Past Medical History Past Medical History: GERD/Reflux, Hyperlipidemia, Hypertension, Osteoarthritis (OA) Additional Past Medical History / Comment(s): PSORIASIS, HX OF CONSTIPATION, SHUFFLES WHEN SHE WALKS, HX FALL, USES CANE., PAIN RIGHT KNEE. History of Any Multi-Drug Resistant Organisms: None Reported Past Surgical History: Cholecystectomy, Hysterectomy Past Anesthesia/Blood Transfusion Reactions: No Reported Reaction Smoking Status: Unknown if ever smoked - Past Family History Mother Family Medical History: No Reported History Medications and Allergies Home Medications Medication Instructions Recorded Confirmed Type amLODIPine BESYLATE/BENAZEPRIL 1 cap PO DAILY 12/24/14 04/07/20 History [Amlodipine-Benazepril 10-20 mg] atenoloL [Atenolol] 25 mg PO BID 12/24/14 04/07/20 History Atorvastatin [Lipitor] 40 mg PO HS 01/07/20 04/07/20 History Acetaminophen Tab [Tylenol Tab] 500 mg PO DIRECTED PRN 04/01/20 04/07/20 History Citalopram Hydrobromide 10 mg PO HS 04/01/20 04/07/20 History [Citalopram HBr] Ibuprofen [Motrin] 800 mg PO DIRECTED PRN 04/01/20 04/07/20 History Omeprazole Magnesium [PriLOSEC OTC] 20 mg PO DAILY PRN 04/01/20 04/07/20 History Aspirin [Adult Low Dose Aspirin EC] 81 mg PO BID #60 tablet. 04/08/20 Rx Allergies Allergy/AdvReac Type Severity Reaction Status Date / Time No Known Allergies Allergy Verified 04/01/20 14:57 Physical Exam Vitals: Vital Signs Temp Pulse Resp BP Pulse Ox 04/08/20 07:30 97.7 F 72 18 120/67 99 04/08/20 03:45 98.1 F 77 136/67 98 04/07/20 20:05 97.9 F 85 18 111/61 95 04/07/20 17:55 98.7 F 85 18 99/60 98 04/07/20 16:30 87 16 117/68 98 04/07/20 16:00 90 16 114/61 98 04/07/20 15:35 80 18 121/59 97 04/07/20 15:15 82 16 121/59 99 04/07/20 15:00 78 16 137/65 98 04/07/20 14:45 81 16 135/61 98 04/07/20 14:30 96.8 F L 80 12 136/62 98 04/07/20 12:17 59 L 16 104/56 100 04/07/20 11:28 98.0 F 62 16 127/60 99 Intake and Output 04/07/20 04/08/20 04/08/20 22:59 06:59 14:59 Intake Total 100 600 Balance 100 600 Intake: IV 100 Intake, IV Titration 600 Amount Sodium Chloride 0.9% 1, 600 000 ml @ 50 mls/hr IV . Q20H [facility] Rx#:[id number] Other: Voiding Method Toilet # Voids 3 4 Weight 63.1 kg PHYSICAL EXAM: VITAL SIGNS: As above GENERAL: Sitting up in chair, no acute distress HEENT: Conjunctivae normal. eyes normal. Oral mucosa moist NECK: No JVD. No thyroid enlargement. No LNs CARDIOVASCULAR: S1, S2 regular. No murmur RESPIRATION: Breath sounds diminished in the bases. No rhonchi or crackles. No bronchial breathing. ABDOMEN: Soft, nontender . No guarding. no masses palpable. No ascites, No hepatosplenomegaly.Bowel sounds heard. LEGS: Right lower extremity dressing clean dry and intact, minimal edema, no calf tenderness, no DP pulse. PSYCHIATRY: Alert and oriented X3, mood and affect normal. NERVOUS SYSTEM: Cranial N 2-12 grossly normal. Moves all 4 limbs. No focal deficits. Strength and sensation grossly intact. Skin: Warm and dry, no rash Results CBC & Chem 7: 04/08/20 06:27 Labs: Abnormal Lab Results - Last 24 Hours (Table) 04/08/20 Range/Units 06:27 WBC 15.6 H (3.8-10.6) k/uL Neutrophils # 14.2 H (1.3-7.7) k/uL Lymphocytes # 0.8 L (1.0-4.8) k/uL Assessment and Plan Assessment: Progressive osteoarthritis, status post elective right total knee arthroplasty Leukocytosis, suspect reactive Gastroesophageal reflux disease Hyperlipidemia Hypertension Anxiety Depression Nicotine dependence, recently quit 3 weeks ago. Plan: Continue on current medication regime ,monitoring and symptomatic treatment. Aggressive pulmonary toileting with incentive spirometer reinforced. Home meds have been reviewed and resumed accordingly. PT. Pain management as per primary. Potential discharge home today as per orthopedic surgery. Follow- up with PCP, Dr. Yeung in [address] Stahl for the consult. The impression and plan of care has been dictated as directed. : I performed a history and examination of this patient, discussed the same with the dictator. I agree with the dictator's note ,documented as a scribe. Any additional findings or plans will be noted.
[2020-04-08] MEDS ORDERED: CITALOPRAM HYDROBROMIDE 10 MG TAB PO SCH (21:00)
== END 2020-04-08 13:19 | disposition home health service (06) ==
LOC: OR 10:46 → 4SSUR 13:56 → OR 04-08 13:19
PROVIDERS: ATTEND Orthopaedic Surgery
DX: M17.11 Unilateral primary osteoarthritis, right knee (principal); I10 Essential (primary) hypertension; F32.9 Major depressive disorder, single episode, unspecified; E78.2 Mixed hyperlipidemia; K21.9 Gastro-esophageal reflux disease without esophagitis; F41.9 Anxiety disorder, unspecified; L40.9 Psoriasis, unspecified; F17.210 Nicotine dependence, cigarettes, uncomplicated; Z90.710 Acquired absence of both cervix and uterus; Z90.49 Acquired absence of other specified parts of digestive tract; Z79.1 Long term (current) use of non-steroidal anti-inflammatories (NSAID); Z79.899 Other long term (current) drug therapy
CPT/HCPCS: 97110; 97161; 64448; 76942; 85025; 73560; 27447; C1776; C1713; J2250; J0171; J1100; J0690 ×3; J2405; J1885; J1650; J2795 ×2; J0735; J1170; 88300

== ENCOUNTER → 2020-07-28 | Outpatient (CLI) | payer MEDICARE, OTHER ==
[2020-07-28 17:50] LABS: African American GFR (CKD) 63.8 (60.0-200.0); Albumin 4.4 g/dL (3.80-4.90); Albumin/Globulin Ratio 1.83 (1.60-3.17); Chol/HDL Ratio 3.24; Globulin 2.4 g/dL (1.6-3.3); LDL Cholesterol,Calculated 96.6 mg/dL (0.0-131.0); Non-African American GFR(CKD) 55.1 (60.0-200.0); Potassium 3.8 mmol/L (3.5-5.5); Total Bilirubin 0.7 mg/dL (0.2-1.2); Total Protein 6.8 g/dL (6.2-8.2); VLDL Calculation 33.4 mg/dL (5.00-40.00)
== END | disposition home or self-care (01) ==
LOC: LABWHC1 07:37
PROVIDERS: ATTEND Nurse Practitioner Adult Health
DX: I10 Essential (primary) hypertension (principal); E78.2 Mixed hyperlipidemia
CPT/HCPCS: 36415; 80053; 80061

== ENCOUNTER 2021-05-23 00:05 | Inpatient (IN) | payer MEDICARE, OTHER ==
[2021-05-23] MEDS ORDERED: SODIUM CHLORIDE 0.9% 1,000 ML IV STA (00:25)
--- NOTE | 2021-05-23 00:25 | ED ---
Altered Mental Status HPI - General Chief Complaint: Altered Mental Status Stated Complaint: Altered mental status Time Seen by Provider: 05/23/21 00:25 Source: patient, family Mode of arrival: wheelchair Limitations: altered mental status - Related Data Home Medications Medication Instructions Recorded Confirmed amLODIPine BESYLATE/BENAZEPRIL 1 cap PO DAILY 12/24/14 04/07/20 [Amlodipine-Benazepril 10-20 mg] atenoloL 25 mg PO BID 12/24/14 04/07/20 Atorvastatin [Lipitor] 40 mg PO HS 01/07/20 04/07/20 Acetaminophen Tab [Tylenol Tab] 500 mg PO DIRECTED PRN 04/01/20 04/07/20 Citalopram Hydrobromide 10 mg PO HS 04/01/20 04/07/20 [Citalopram HBr] Ibuprofen [Motrin] 800 mg PO DIRECTED PRN 04/01/20 04/07/20 Omeprazole Magnesium [PriLOSEC OTC] 20 mg PO DAILY PRN 04/01/20 04/07/20 Previous Rx's Medication Instructions Recorded Aspirin [Adult Low Dose Aspirin EC] 81 mg PO BID #60 tablet. 04/08/20 Allergies Allergy/AdvReac Type Severity Reaction Status Date / Time No Known Allergies Allergy Verified 05/23/21 00:14 Review of Systems ROS Statement: Those systems with pertinent positive or pertinent negative responses have been documented in the HPI. ROS Other: All systems not noted in ROS Statement are negative. Past Medical History Past Medical History: GERD/Reflux, Hyperlipidemia, Hypertension Additional Past Medical History / Comment(s): covid -03/22 History of Any Multi-Drug Resistant Organisms: None Reported Past Surgical History: Cholecystectomy, Hysterectomy, Orthopedic Surgery Additional Past Surgical History / Comment(s): knee Past Anesthesia/Blood Transfusion Reactions: No Reported Reaction Past Psychological History: Anxiety Smoking Status: Never smoker Past Alcohol Use History: None Reported Past Drug Use History: None Reported General Exam Limitations: altered mental status Course Vital Signs 05/23/21 05/23/21 00:11 03:48 Temperature 97.9 F Pulse Rate 87 84 Respiratory 20 18 Rate Blood Pressure 181/79 183/82 O2 Sat by Pulse 99 96 Oximetry Medical Decision Making - Lab Data Result diagrams: 05/23/21 00:53 05/23/21 00:53 Lab Results 05/23/21 05/23/21 05/23/21 Range/Units 00:53 00:53 00:53 WBC 8.9 (3.8-10.6) k/uL RBC 4.44 (3.80-5.40) m/uL Hgb 14.0 (11.4-16.0) gm/dL Hct 42.8 (34.0-46.0) % MCV 96.5 (80.0-100.0) fL MCH 31.6 (25.0-35.0) pg MCHC 32.8 (31.0-37.0) g/dL RDW 14.3 (11.5-15.5) % Plt Count 291 (150-450) k/uL MPV 6.9 Neutrophils % 72 % Lymphocytes % 21 % Monocytes % 4 % Eosinophils % 1 % Basophils % 0 % Neutrophils # 6.5 (1.3-7.7) k/uL Lymphocytes # 1.8 (1.0-4.8) k/uL Monocytes # 0.4 (0-1.0) k/uL Eosinophils # 0.1 (0-0.7) k/uL Basophils # 0.0 (0-0.2) k/uL PT 10.1 (9.0-12.0) sec INR 0.9 (<1.2) APTT 18.1 L (22.0-30.0) sec Sodium 142 (137-145) mmol/L Potassium 3.4 L (3.5-5.1) mmol/L Chloride 109 H (98-107) mmol/L Carbon Dioxide 21 L (22-30) mmol/L Anion Gap 12 mmol/L BUN 22 H (7-17) mg/dL Creatinine 0.76 (0.52-1.04) mg/dL Est GFR (CKD-EPI)AfAm 89 (>60 ml/min/1.73 sqM) Est GFR (CKD-EPI)NonAf 77 (>60 ml/min/1.73 sqM) Glucose 164 H (74-99) mg/dL Calcium 9.7 (8.4-10.2) mg/dL Phosphorus 4.1 (2.5-4.5) mg/dL Magnesium 2.0 (1.6-2.3) mg/dL Total Bilirubin 0.7 (0.2-1.3) mg/dL AST 23 (14-36) U/L ALT 15 (4-34) U/L Alkaline Phosphatase 135 H (38-126) U/L Troponin I (0.000-0.034) ng/mL NT-Pro-B Natriuret Pep pg/mL Total Protein 7.5 (6.3-8.2) g/dL Albumin 4.2 (3.5-5.0) g/dL Urine Color Urine Appearance (Clear) Urine pH (5.0-8.0) Ur Specific Leslie (1.001-1.035) Urine Protein (Negative) Urine Glucose (UA) (Negative) Urine Ketones (Negative) Urine Blood (Negative) Urine Nitrite (Negative) Urine Bilirubin (Negative) Urine Urobilinogen (<2.0) mg/dL Ur Leukocyte Esterase (Negative) Coronavirus (PCR) (Not Detectd) 05/23/21 05/23/21 05/23/21 Range/Units 00:53 00:53 01:10 WBC (3.8-10.6) k/uL RBC (3.80-5.40) m/uL Hgb (11.4-16.0) gm/dL Hct (34.0-46.0) % MCV (80.0-100.0) fL MCH (25.0-35.0) pg MCHC (31.0-37.0) g/dL RDW (11.5-15.5) % Plt Count (150-450) k/uL MPV Neutrophils % % Lymphocytes % % Monocytes % % Eosinophils % % Basophils % % Neutrophils # (1.3-7.7) k/uL Lymphocytes # (1.0-4.8) k/uL Monocytes # (0-1.0) k/uL Eosinophils # (0-0.7) k/uL Basophils # (0-0.2) k/uL PT (9.0-12.0) sec INR (<1.2) APTT (22.0-30.0) sec Sodium (137-145) mmol/L Potassium (3.5-5.1) mmol/L Chloride (98-107) mmol/L Carbon Dioxide (22-30) mmol/L Anion Gap mmol/L BUN (7-17) mg/dL Creatinine (0.52-1.04) mg/dL Est GFR (CKD-EPI)AfAm (>60 ml/min/1.73 sqM) Est GFR (CKD-EPI)NonAf (>60 ml/min/1.73 sqM) Glucose (74-99) mg/dL Calcium (8.4-10.2) mg/dL Phosphorus (2.5-4.5) mg/dL Magnesium (1.6-2.3) mg/dL Total Bilirubin (0.2-1.3) mg/dL AST (14-36) U/L ALT (4-34) U/L Alkaline Phosphatase (38-126) U/L Troponin I <0.012 (0.000-0.034) ng/mL NT-Pro-B Natriuret Pep 212 pg/mL Total Protein (6.3-8.2) g/dL Albumin (3.5-5.0) g/dL Urine Color Light Yellow Urine Appearance Clear (Clear) Urine pH 6.0 (5.0-8.0) Ur Specific Leslie 1.007 (1.001-1.035) Urine Protein Negative (Negative) Urine Glucose (UA) Negative (Negative) Urine Ketones Negative (Negative) Urine Blood Negative (Negative) Urine Nitrite Negative (Negative) Urine Bilirubin Negative (Negative) Urine Urobilinogen <2.0 (<2.0) mg/dL Ur Leukocyte Esterase Negative (Negative) Coronavirus (PCR) (Not Detectd) 05/23/21 Range/Units 01:10 WBC (3.8-10.6) k/uL RBC (3.80-5.40) m/uL Hgb (11.4-16.0) gm/dL Hct (34.0-46.0) % MCV (80.0-100.0) fL MCH (25.0-35.0) pg MCHC (31.0-37.0) g/dL RDW (11.5-15.5) % Plt Count (150-450) k/uL MPV Neutrophils % % Lymphocytes % % Monocytes % % Eosinophils % % Basophils % % Neutrophils # (1.3-7.7) k/uL Lymphocytes # (1.0-4.8) k/uL Monocytes # (0-1.0) k/uL Eosinophils # (0-0.7) k/uL Basophils # (0-0.2) k/uL PT (9.0-12.0) sec INR (<1.2) APTT (22.0-30.0) sec Sodium (137-145) mmol/L Potassium (3.5-5.1) mmol/L Chloride (98-107) mmol/L Carbon Dioxide (22-30) mmol/L Anion Gap mmol/L BUN (7-17) mg/dL Creatinine (0.52-1.04) mg/dL Est GFR (CKD-EPI)AfAm (>60 ml/min/1.73 sqM) Est GFR (CKD-EPI)NonAf (>60 ml/min/1.73 sqM) Glucose (74-99) mg/dL Calcium (8.4-10.2) mg/dL Phosphorus (2.5-4.5) mg/dL Magnesium (1.6-2.3) mg/dL Total Bilirubin (0.2-1.3) mg/dL AST (14-36) U/L ALT (4-34) U/L Alkaline Phosphatase (38-126) U/L Troponin I (0.000-0.034) ng/mL NT-Pro-B Natriuret Pep pg/mL Total Protein (6.3-8.2) g/dL Albumin (3.5-5.0) g/dL Urine Color Urine Appearance (Clear) Urine pH (5.0-8.0) Ur Specific Leslie (1.001-1.035) Urine Protein (Negative) Urine Glucose (UA) (Negative) Urine Ketones (Negative) Urine Blood (Negative) Urine Nitrite (Negative) Urine Bilirubin (Negative) Urine Urobilinogen (<2.0) mg/dL Ur Leukocyte Esterase (Negative) Coronavirus (PCR) Not Detected (Not Detectd) - EKG Data -: EKG Interpreted by Me (EKG sinus rhythm 81 CA 162 QRS 84 QTc 457) Disposition Clinical Impression: General weakness, Altered mental status, TIA (transient ischemic attack), Hypertension Disposition: ADMITTED IP TO THIS [facility] Condition: Good Is patient prescribed a controlled substance at d/c from ED?: No Referrals: Gordy Yeung DO [Primary Care Provider] - 1-2 days
[2021-05-23 01:01] LABS: Basophils % (A) 0 %; Eosinophils # (A) 0.1 k/uL (0-0.7); Eosinophils % (A) 1 %; HCT 42.8 % (34.0-46.0); Lymphocytes # (A) 1.8 k/uL (1.0-4.8); Lymphocytes % (A) 21 %; MCH 31.6 pg (25.0-35.0); MCHC 32.8 g/dL (31.0-37.0); MCV 96.5 fL (80.0-100.0); Mean Platelet Volume 6.9; Monocytes # (A) 0.4 k/uL (0-1.0); Monocytes % (A) 4 %; Neutrophils # (A) 6.5 k/uL (1.3-7.7); Neutrophils % (A) 72 %; Platelet Count 291 k/uL (150-450); RBC 4.44 m/uL (3.80-5.40); RDW 14.3 % (11.5-15.5); WBC 8.9 k/uL (3.8-10.6)
[2021-05-23 01:16] LABS: INR 0.9 (<1.2); Prothrombin Time 10.1 sec (9.0-12.0)
[2021-05-23 01:19] LABS: Albumin 4.2 g/dL (3.5-5.0); Calcium 9.7 mg/dL (8.4-10.2); Phosphorus 4.1 mg/dL (2.5-4.5); Potassium 3.4 mmol/L (3.5-5.1); Total Bilirubin 0.7 mg/dL (0.2-1.3); Total Protein 7.5 g/dL (6.3-8.2)
[2021-05-23 01:26] LABS: Partial Thromboplastin Time 18.1 sec (22.0-30.0)
[2021-05-23] MEDS ORDERED: POTASSIUM BICARBONATE/CIT AC 20 MEQ TABLET.EFF PO ONE (01:26)
[2021-05-23] MEDS ORDERED: LABETALOL 5 MG/ML VIAL MDV IVP STA (01:26)
[2021-05-23 01:27] LABS: Appearance,Urine Clear (Clear); Bilirubin,Urine Negative (Negative); Blood,Urine Negative (Negative); Color,Urine Light Yellow; Glucose,Urine (UA) Negative (Negative); Ketones,Urine Negative (Negative); Leukocyte Esterase,Urine Negative (Negative); Nitrite,Urine Negative (Negative); Protein,Urine Negative (Negative); Specific Gravity,Urine 1.007 (1.001-1.035); Urobilinogen,Urine <2.0 mg/dL (<2.0)
--- NOTE | 2021-05-23 02:14 | CT ---
EXAMINATION TYPE: CT brain wo con DATE OF EXAM: 05/23/2021 COMPARISON: None HISTORY: AMS CT DLP: 1202.4 mGycm Automated exposure control for dose reduction was used. Images of the brain obtained without contrast. There is some cerebral cortical atrophy. There is no mass effect or midline shift. There is no sign o f intracranial hemorrhage. Calvarium is intact. There is normal aeration of the mastoid sinuses. IMPRESSION: Mild atrophy. No acute intracranial abnormality.
--- NOTE | 2021-05-23 02:17 | XR ---
EXAMINATION TYPE: XR KUB DATE OF EXAM: 05/23/2021 COMPARISON: 10/11/2019 HISTORY: Abdominal pain TECHNIQUE: 2 views upright FINDINGS: There is no sign of intestinal obstruction or pneumoperitoneum. Fecal pattern is normal. Th ere is no evidence of a mass. Lung bases are clear. There are no definite calcifications over the kid neys. IMPRESSION: Nonacute abdomen. No adverse change.
[2021-05-23] MEDS ORDERED: ASPIRIN 325 MG TAB PO STA (04:25)
[2021-05-23] MEDS ORDERED: SODIUM CHLORIDE 0.9% 1,000 ML IV SCH (04:30)
--- NOTE | 2021-05-23 09:18 | US ---
EXAMINATION TYPE: US carotid duplex BILAT DATE OF EXAM: 05/23/2021 COMPARISON: None CLINICAL HISTORY: Stenosis. AMS. HTN. EXAM MEASUREMENTS: RIGHT: Peak Systolic Velocity (PSV) cm/sec ----- Right CCA: 105.0 ----- Right ICA: 125.0 ----- Right ECA: 56.5 ICA/CCA ratio: 1.2 RIGHT: End Diastole cm/sec ----- Right CCA: 13.6 ----- Right ICA: 27.3 ----- Right ECA: 7.2 LEFT: Peak Systolic Velocity (PSV) cm/sec ----- Left CCA: 81.7 ----- Left ICA: 82.2 ----- Left ECA: 67.8 ICA/CCA ratio: 1.0 LEFT: End Diastole cm/sec ----- Left CCA: 15.4 ----- Left ICA: 16.4 ----- Left ECA: 0.0 VERTEBRALS (direction of flow): Right Vertebral: Antegrade Left Vertebral: Antegrade Rhythm: Normal Small amount of plaque in bilateral bulbs. No elevated velocities or significant stenosis. IMPRESSION: Less than 50% stenosis bilaterally at the carotid bifurcations. Criteria for Assigning % of Stenosis / Diameter reduction (Estimation based on the indirect measurements of the internal carotid artery velocities (ICA PSV). 1. Normal (no stenosis)=ICA PSV < 125 cm/s: ratio < 2.0: ICA EDV<40 cm/s. 2. Less than 50% stenosis=ICA PSV < 125 cm/s: ratio < 2.0: ICA EDV<40 cm/s. 3. 50 to 69% stenosis=ICA PSV of 125 to 230 cm/s: ration 2.0 ? 4.0: ICA EDV 40-100 cm/s. 4. Greater than 70% stenosis to near occlusion= ICA PSV > 230 cm/s: ratio > 4.0: ICA EDV > 100 cm/s. 5. Near occlusion= ICA PSV velocities may be low or undetectable: variable ratio and ICA EDV. 6. Total occlusion=unable to detect flow.
[2021-05-23] MEDS ORDERED: POTASSIUM CHLORIDE ER 20 MEQ TAB.ER PO STA (09:36)
--- NOTE | 2021-05-23 10:07 | P.CNNES ---
History of Present Illness Consult date: 05/23/21 Requesting physician: Jose Gómez Reason for Consult: tia History of Present Illness: This is a 76-year-old woman who is left-handed dominant with medical history of hypertension, hyperlipidemia, psoriasis, osteoarthritis, major depression, anxiety and history of nicotine use who presented emergency department on 05/23/2021 for difficulty getting her words out and confusion. According to the patient, on 05/22/2021 at nighttime she noticed that the she was having difficulty getting her words out and she knew what that she wanted to say but couldn't get it out and she was acting confused. She went to her friend's house and her friend notified her that she wasn't making sense. Patient's symptoms lasted for 1 hour the resolved. Patient denies any focal weakness, numbness, visual disturbance, difficulty swallowing. She denied of any headache. Patient stated that the she denies any history of stroke or TIAs in the past and she has history of hypertension but the does not check her blood pressure on a regular basis but she said that that for the most part when she checks it her blood pressure is controlled. Patient is not on any antiplatelets or a statin at home. Patient lives by herself and uses a cane to get around. Somewhat the patient home medication consist of citalopram, ibuprofen, o meprazole, amlodipine, atenolol. Some other workup in the hospital consisted of: Initial vital signs his blood pressure of 181/79, heart rate of 87, respiratory of 20, temperature of 97.9 Fahrenheit oral and pulse ox of 99% room air. CBC with differential is unremarkable Chemistry panel sodium is 142, creatinine is 0.76, initial serum glucose is 164, calcium is 9.7, phosphorus is 4.1, magnesium is 2.0, AST and ALT are within normal limits. Urinalysis is negative for urinary tract infection. Next a Neville virus PCR is not detected. CT of the head is reported as mild atrophy. No acute intracranial abnormality. I personally reviewed the CT of the head and there is no acute or subacute ische carey and there is no parenchymal hemorrhage seen. There is no encephalomalacia that's appreciated. EKG is reported as normal sinus rhythm. Left axis deviation. Abnormal EKG. Review of Systems Review of system: The 12 point system was reviewed and apparent positive and negative per HPI. Past Medical History Past Medical History: GERD/Reflux, Hyperlipidemia, Hypertension Additional Past Medical History / Comment(s): covid -03/22 History of Any Multi-Drug Resistant Organisms: None Reported Past Surgical History: Cholecystectomy, Hysterectomy, Orthopedic Surgery Additional Past Surgical History / Comment(s): knee Past Anesthesia/Blood Transfusion Reactions: No Reported Reaction Past Psychological History: Anxiety Smoking Status: Never smoker Past Alcohol Use History: None Reported Past Drug Use History: None Reported Medications and Allergies Home Medications Medication Instructions Recorded Confirmed Type Ascorbic Acid [Vitamin C] 500 mg PO DAILY 05/23/21 05/23/21 History Atorvastatin Calcium [Lipitor] 10 mg PO DAILY 05/23/21 05/23/21 History Cholecalciferol [Vitamin D3 (25 25 mcg PO DAILY 05/23/21 05/23/21 History Mcg = 1000 Iu)] Potassium Chloride [Klor-Con 20] 20 meq PO DAILY 05/23/21 05/23/21 History amLODIPine BESYLATE/BENAZEPRIL 1 cap PO DAILY 05/23/21 05/23/21 History [Lotrel 5-20 MG] Allergies Allergy/AdvReac Type Severity Reaction Status Date / Time No Known Allergies Allergy Verified 05/23/21 09:29 Physical Examination - Vital Signs Vital Signs: Vital Signs Temp Pulse Pulse Resp BP BP Pulse Ox 05/23/21 07:00 98.2 F 59 L 20 180/81 99 05/23/21 05:42 72 05/23/21 05:10 82 16 167/62 96 05/23/21 04:41 97.8 F 72 18 175/82 99 05/23/21 03:48 84 18 183/82 96 05/23/21 00:11 97.9 F 87 20 181/79 99 Intake and Output 05/22/21 05/23/21 05/23/21 22:59 06:59 14:59 Other: Weight 66.678 kg GENERAL: The patient is lying in bed and is not in acute distress. CHEST: The heart rate is regular rate rhythm. No murmurs to auscultation. No carotid bruit bilaterally. LUNG: Clear to auscultation bilaterally no wheezing noted throughout. Not labored breathing. ABDOMEN/GI: Bowel sounds present in all 4 quadrants. No tenderness to palpation throughout. NEUROLOGICAL: Higher mental function: The patient is awake, alert, oriented to self, place and time. Patient is following commands. No aphasia and no neglect. Cranial nerves: The pupils are round, equal and reactive to light and accommodation. Visual shaw are full to confrontation throughout. Extraocular movement is intact no nystagmus is noted. Facial sensation is normal to touch throughout. The facial strength is normal throughout. Hearing is normal bilaterally to hand rub. Tongue is midline and moved [id number] without any difficulty. No dysarthria is noted. Shoulder shrug is normal bilaterally. Motor: Gait is deferred. The strength is 5 over 5 throughout. Normal tone and bulk. Cerebellum: Normal finger to nose bilaterally. Sensation: Sensation is normal to touch throughout. Reflexes (right/left): 2+ throughout. Plantars are downgoing bilaterally. NIH stroke scale is 0. Results - Laboratory Findings CBC and BMP: 05/23/21 00:53 05/23/21 00:53 Abnormal Lab Findings: Abnormal Labs 05/23/21 05/23/21 00:53 00:53 APTT 18.1 L Potassium 3.4 L Chloride 109 H Carbon Dioxide 21 L BUN 22 H Glucose 164 H Alkaline Phosphatase 135 H Assessment and Plan Assessment: Likely Transient ischemic attack (transient episode of aphasia (expressive) and felt confused). Has risk factors for stroke (HTN, hyperlipidemia, age and nicotine use) History of hypertension and on presentation was elevated. Not sure if her elevated blood pressure was due to Stroke via having uncontrolled HTN History of hyperlipidemia Osteoarthritis History of psoriasis Major depression Anxiety History of nicotine use stopped one year ago Plan: In the ED the patient was a given aspirin 325mg once and was started on aspirin 325mg daily as well as Lipitor 80 mg daily. I decrease the ASA to 81mg and started the patient on Plavix 75mg daily. Patient is to be on dual antiplatelets for 21 days and after that to stop Plavix but continue indefinitely on ASA. I decreased the Lipitor to 40mg daily for secondary stroke prophyalxis. Carotid duplex, 2-D echo, lipid panel is ordered by the ED team and it's pending. Ordered MRI Brain w/o. Ordered TSH, vitamin B12, folate level. Continue neuro checks On cardiac monitoring We'll defer the hypertension management to the primary team. For DVT prophylaxis: Placed on subq heparin 5000U every 12 hours. The plan is discussed with the patient, her primary team and nurse. Thank you for the consultation. Pablo Solomon M.D. Neuro-hospitalist Time with Patient: Greater than 30
[2021-05-23] MEDS: polyethylene glycoL 3350 17 GM POWD.PACK PO SCH (10:46)
[2021-05-23] MEDS: CLOPIDOGREL 75 MG TAB PO SCH (10:47)
[2021-05-23] MEDS: amLODIPine 5 MG TAB PO SCH (10:47)
[2021-05-23] MEDS: lisinopriL 20 MG TAB PO SCH (10:47)
[2021-05-23] MEDS: HEPARIN SODIUM,PORCINE/PF 5,000 UNIT/0.5 ML SYRINGE SQ SCH ×2 (10:47→19:52)
--- NOTE | 2021-05-23 12:33 | P.HPIM ---
History of Present Illness Pleasant 76-year-old male came in with the complaint of slurred speech difficulties speech which lasted for about 4 hours as today. Patient denied any other weakness. Patient denied any history of TIAs or strokes in the past. Patient blood pressure was bit elevated since hospitalization. Denied any fever chills the patient was having some headache which is diffuse. Patient denied any nausea vomiting. REVIEW OF SYSTEMS: CONSTITUTIONAL: No fever, no malaise, no fatigue. HEENT: No recent visual problems or hearing problems. Denied any sore throat. CARDIOVASCULAR: No chest pain, orthopnea, PND, no palpitations, no syncope. PULMONARY: No shortness of breath, no cough, no hemoptysis. GASTROINTESTINAL: No diarrhea, no nausea, no vomiting, no abdominal pain. NEUROLOGICAL: No headaches, no weakness, no numbness. HEMATOLOGICAL: Denies any bleeding or petechiae. GENITOURINARY: Denies any burning micturition, frequency, or urgency. MUSCULOSKELETAL/RHEUMATOLOGICAL: Denies any joint pain, swelling, or any muscle pain. ENDOCRINE: Denies any polyuria or polydipsia. The rest of the 14-point review of systems is negative. PHYSICAL EXAMINATION: GENERAL: The patient is alert and oriented x3, not in any acute distress. Well developed, well nourished. HEENT: Pupils are round and equally reacting to light. EOMI. No scleral icterus. No conjunctival pallor. Normocephalic, atraumatic. No pharyngeal erythema. No thyromegaly. CARDIOVASCULAR: S1 and S2 present. No murmurs, rubs, or gallops. PULMONARY: Chest is clear to auscultation, no wheezing or crackles. ABDOMEN: Soft, nontender, nondistended, normoactive bowel sounds. No palpable organomegaly. MUSCULOSKELETAL: No joint swelling or deformity. EXTREMITIES: No cyanosis, clubbing, or pedal edema. NEUROLOGICAL: Gross neurological examination did not reveal any focal deficits except for speech abnormality which resolved at this time.. SKIN: No rashes. Assessment and plan -Slurred speech possibly of transient ischemic attack cannot be ruled out. CT of the head did not show any significant abnormality carotid Doppler did not show any significant stenosis. Patient LDL is pending patient is on statin which will be continued patient is also 90 pressure therapy which is being continued neurology validate the patient patient will undergo MRI. She'll also on Plavix. -Hypertension blood pressure is not well controlled and elevated patient will be resumed on her home medications included to monitor the blood pressure -Hyperlipidemia -Osteoarthritis -Major depression Anxiety disorder Psoriasis DVT prophylaxis: Lovenox Past Medical History Past Medical History: GERD/Reflux, Hyperlipidemia, Hypertension Additional Past Medical History / Comment(s): covid -03/22 History of Any Multi-Drug Resistant Organisms: None Reported Past Surgical History: Cholecystectomy, Hysterectomy, Orthopedic Surgery Additional Past Surgical History / Comment(s): knee Past Anesthesia/Blood Transfusion Reactions: No Reported Reaction Past Psychological History: Anxiety Smoking Status: Never smoker Past Alcohol Use History: None Reported Past Drug Use History: None Reported Medications and Allergies Home Medications Medication Instructions Recorded Confirmed Type Ascorbic Acid [Vitamin C] 500 mg PO DAILY 05/23/21 05/23/21 History Atorvastatin Calcium [Lipitor] 10 mg PO DAILY 05/23/21 05/23/21 History Cholecalciferol [Vitamin D3 (25 25 mcg PO DAILY 05/23/21 05/23/21 History Mcg = 1000 Iu)] Potassium Chloride [Klor-Con 20] 20 meq PO DAILY 05/23/21 05/23/21 History amLODIPine BESYLATE/BENAZEPRIL 1 cap PO DAILY 05/23/21 05/23/21 History [Lotrel 5-20 MG] Allergies Allergy/AdvReac Type Severity Reaction Status Date / Time No Known Allergies Allergy Verified 05/23/21 09:29 Physical Exam Vitals: Vital Signs Temp Pulse Pulse Resp BP BP Pulse Ox 05/23/21 07:00 98.2 F 59 L 20 180/81 99 05/23/21 05:42 72 05/23/21 05:10 82 16 167/62 96 05/23/21 04:41 97.8 F 72 18 175/82 99 05/23/21 03:48 84 18 183/82 96 05/23/21 00:11 97.9 F 87 20 181/79 99 Intake and Output 05/22/21 05/23/21 05/23/21 22:59 06:59 14:59 Intake Total 118 Balance 118 Intake: Oral 118 Other: Weight 66.678 kg Results CBC & Chem 7: 05/23/21 00:53 05/23/21 00:53 Labs: Abnormal Lab Results - Last 24 Hours (Table) 05/23/21 05/23/21 Range/Units 00:53 00:53 APTT 18.1 L (22.0-30.0) sec Potassium 3.4 L (3.5-5.1) mmol/L Chloride 109 H (98-107) mmol/L Carbon Dioxide 21 L (22-30) mmol/L BUN 22 H (7-17) mg/dL Glucose 164 H (74-99) mg/dL Alkaline Phosphatase 135 H (38-126) U/L Thrombosis Risk Factor Assmnt - Choose All That Apply Any of the Below Risk Factors Present?: Yes Each Factor Represents 1 point: Obesity (BMI >25) Other Risk Factors: Yes Each Risk Factor Represents 3 Points: Age 75 years or older Other congenital or acquired thrombophilia - If yes, enter type in comment: No Thrombosis Risk Factor Assessment Total Risk Factor Score: 4 Thrombosis Risk Factor Assessment Level: Moderate Risk
--- NOTE | 2021-05-23 13:20 | MR ---
INDICATION: Patient age:Female; 76 years old; Reason for study: transient aphasia and confusion. Stroke; COMPARISON: CT brain 05/23/2021. TECHNIQUE: Multi planar, multi sequence imaging was performed through the brain including: T1, T2, In version recovery, Diffusion weighted imaging, T1 fat-saturation images were obtained. FINDINGS: The mehta-white junctions, ventricular system, basal cisterns appear unremarkable. Diffusion-weighted imaging shows no evidence of restricted diffusion to suggest acute/subacute infarct. Intracranial art erial flow voids are maintained. Midline structures show no abnormality. Patchy areas of high T2 sign al intensity are seen within the periventricular white matter. The bone marrow signal is within normal limits. The paranasal sinuses and globes are unremarkable. IMPRESSION: 1. No evidence of intracranial mass, acute/subacute infarct 2. Nonspecific white matter changes, likely related to small vessel ischemic disease
--- NOTE | 2021-05-23 14:04 | ECHOF ---
Referral Reason:Thrombus MEASUREMENTS -------- HEIGHT: 160.0 cm WEIGHT: 66.7 kg BP: RVIDd: 2.6 cm (< 3.3) IVSd: 1.0 cm (0.6 - 1.1) LVIDd: 5.5 cm (3.9 - 5.3) LVPWd: 1.3 cm (0.6 - 1.1) IVSs: 1.6 cm LVIDs: 3.9 cm LVPWs: 1.2 cm LA Diam: 3.3 cm (2.7 - 3.8) Ao Diam: 2.6 cm (2.0 - 3.7) AV Cusp: 1.4 cm (1.5 - 2.6) LA Diam: 3.6 cm (2.7 - 3.8) MV EXCURSION: 15.618 mm (> 18.000) MV EF SLOPE: 52 mm/s (70 - 150) EPSS: 0.6 cm MV E Kevin: 0.80 m/s MV DecT: 328 ms MV A Kevin: 1.02 m/s MV E/A Ratio: 0.78 RAP: 5.00 mmHg RVSP: 23.24 mmHg FINDINGS -------- Undetermined rhythm. This was a technically good study. The left ventricular size is normal. Left ventricular wall thickness is normal. Overall left vent ricular systolic function is low-normal with, an EF between 50 - 55 %. The right ventricle is normal in size. The left atrial size is normal. The right atrial size is normal. There is mild aortic valve sclerosis. There is no evidence of aortic regurgitation. Mild mitral annular calcification present. Mild mitral regurgitation is present. Mild tricuspid regurgitation present. Right ventricular systolic pressure is normal at < 35 mmHg. The pulmonic valve was not well visualized. Echo free space indicative of a pericardial fat pad. There is a small, generalized pericardial effu raquel present. CONCLUSIONS -------- 1. The left ventricular size is normal. 2. Left ventricular wall thickness is normal. 3. Overall left ventricular systolic function is low-normal with, an EF between 50 - 55 %. 4. The right ventricle is normal in size. 5. The left atrial size is normal. 6. The right atrial size is normal. 7. There is mild aortic valve sclerosis. 8. Mild mitral annular calcification present. 9. Mild mitral regurgitation is present. 10. Mild tricuspid regurgitation present. 11. The pulmonic valve was not well visualized. 12. Echo free space indicative of a pericardial fat pad. 13. There is a small, generalized pericardial effusion present. HADOOP APPLICATION DEVELOPER: Deneen Lucas RDCS
[2021-05-23] MEDS ORDERED: ATORVASTATIN 80 MG TAB PO SCH (21:00)
[2021-05-23] MEDS ORDERED: ATORVASTATIN 40 MG TAB PO SCH (21:00)
[2021-05-23] MEDS ORDERED: ACETAMINOPHEN TAB 325 MG TAB PO PRN (22:26)
[2021-05-23] MEDS ORDERED: MELATONIN 3 MG TABLET PO PRN (22:27)
[2021-05-24] MEDS ORDERED: HALOPERIDOL LACTATE 5 MG/ML 1 ML VIAL IM ONE (01:21)
[2021-05-24] MEDS: amLODIPine 5 MG TAB PO SCH (08:35)
[2021-05-24] MEDS: lisinopriL 20 MG TAB PO SCH (08:35)
[2021-05-24] MEDS: CLOPIDOGREL 75 MG TAB PO SCH (08:35)
[2021-05-24] MEDS: polyethylene glycoL 3350 17 GM POWD.PACK PO SCH (08:35)
[2021-05-24] MEDS: HEPARIN SODIUM,PORCINE/PF 5,000 UNIT/0.5 ML SYRINGE SQ SCH (08:35)
[2021-05-24] MEDS ORDERED: POTASSIUM CHLORIDE ER 20 MEQ TAB.ER PO SCH (09:00)
[2021-05-24] MEDS ORDERED: ASPIRIN 81 MG PO SCH (09:00)
[2021-05-24] MEDS ORDERED: ASPIRIN 325 MG TAB PO SCH (09:00)
[2021-05-24 09:05] VITALS: BP 123/70; PULSE 79; RESP 18; TEMP 98
[2021-05-24] MEDS ORDERED: CYANOCOBALAMIN 500 MCG TAB PO SCH (09:15)
[2021-05-24 11:22] LABS: African American GFR (CKD) 102.6 (60.0-200.0); BUN/Creat Ratio 20.17 Ratio (12.00-20.00); Blood Urea Nitrogen 12.1 mg/dL (9.0-27.0); Calcium 9.7 mg/dL (8.7-10.3); Carbon Dioxide 22.5 mmol/L (20.0-27.5); Chloride 105 mmol/L (96-109); Chol/HDL Ratio 3.29 Ratio; Glucose 110 mg/dL (70-110); LDL Cholesterol,Calculated 94.2 mg/dL (0.0-131.0); Non-African American GFR(CKD) 88.5 (60.0-200.0); Potassium 4.2 mmol/L (3.5-5.5); Sodium 141 mmol/L (135-145)
--- NOTE | 2021-05-24 12:35 | P.DS ---
Providers Date of admission: 05/23/21 14:30 Attending physician: Cameron Blue Consults: 05/23/21 04:25 Consult Physician Routine Consulting Provider: Pablo Solomon Consult Reason/Comments: TIA Do you want consulting provider notified?: Yes Primary care physician: Gordy Yeung Hospital Course: Final Diagnosis -Transient ischemic attack cannot be ruled out. CT of the head did not show any significant abnormality, No evidence for acute/subacute stroke on MRI. Presents with acute confusion and speech difficulties which have resolved. -Hypertension blood pressure has stabilized on home medication -Hyperlipidemia -Osteoarthritis -Major depression -Anxiety disorder -Psoriasis Discharge Disposition Patient is cleared for discharge from medical and neurological standpoint. Follow up with PCP early next week and please follow up with a neurologist outpatient. We would also recommend diet modifications increased physical activity. Follow up with a second random glucose or A1c outpatient. Hospital Course This is a 76-year-old female who came in with complaints of slurred speech, difficulties of speech which lasted for about 4 hours on May 23. Patient denied any other weakness, denied history of TIAs or stroke in the past. Patient is a past medical history significant for hypertension, hyperlipidemia, osteoarthritis, major depression and anxiety disorder as well as psoriasis. Blood pressure has been elevated since hospitalization it with a systolic in the 180s. It is unclear whether this is due to a TIA or if the patient's presenting symptoms were from hypertension. However more likely that this is a transient ischemic attack given the nature of her symptoms of acute confusion and speech difficulties which have resolved since admission. Patient denies any dizziness or lightheadedness, fever or chills she did present with a diffuse headache which has resolved at this time. She denies any nausea or vomiting. Labs on admission show a unremarkable blood count panel, PTT 18.1, potassium 3.4, sodium 142, chloride 109, CO2 21, BUN 22, creatinine 0.76, glucose 164, alk phos 135, troponin negative, BNP 212. Cholesterol panel shows triglyceride level 204, total cholesterol 194, LDL 94.2, HDL 59. Vitamin B12 364, folate 12, TSH 2.770. Urinalysis was negative. Covid PCR not detected. Vitals on admission, afebrile, heart rate 87 sinus rhythm, blood pressure 181/79 and she is 99% on room air. Workup includes a brain CT which shows no acute abnormality and mild atrophy. Follow-up brain MRI shows no evidence of intracranial mass or acute/subacute infarct there is nonspecific white matter changes likely related to small vessel ischemic disease. KUB shows a nonacute abdomen with no adverse change. Initially patient was started on aspirin Plavix combination for 21 days by neurology services however, recommendations from neurology include discharge on 325 mg aspirin daily and plavix was discontinued. Patient can resume all other home medications. B12 daily supplementation added as well as patient was low normal. 05/24/2021 Patient is anxious and tearful in the room as she wants to be discharged today. Discussed with neurology with further management of hypertension to primary. Did recommend changing aspirin to 325 mg by mouth daily and stopping the aspirin 81 and Plavix 75 mg daily. Patient denies any dizziness, lightheadedness, nausea vomiting diarrhea. She denies any chest pain, shortness of breath or palpitations. She denies any unilateral or focal changes in weakness or strength. She is alert and oriented 4 anxious but alert and appropriate. Urinalysis negative. Labs are pending from today. TSH within normal limits at 2.770, B12 within normal limits at 364, folate normal at 12, troponin negative. Brain MRI shows no evidence of intracranial mass, acute or subacute infarct. There is nonspecific white matter changes likely related to small vessel ischemic disease. Echocardiogram reveals an EF of 50-55% which is low normal with left ventricular wall thickness which is normal, mild mitral regurgitation, mild tricuspid regurgitation and a small generalized pericardial effusion present. Carotid Doppler shows less than 50% stenosis bilaterally at the carotid bifurcations. Blood pressure this morning 123/70, she did have an hypertensive episode yesterday afternoon at 182/93. She states that she is taking all her prescribed pressure medications at home is appropriate. Here she is on a combination of amlodipine 5 mg by mouth daily and lisinopril 20 mg by mouth daily. Patient is cleared by neurology services today for discharge as well as medical and to follow-up with a neurologist outpatient. Please see medication reconciliation for list of current medications. Thank you for allowing us to participate in the care of this patient. Patient Condition at Discharge: Good Plan - Discharge Summary New Discharge Prescriptions: New Acetaminophen Tab [Tylenol] 650 mg PO Q6HR PRN tab PRN Reason: Fever And/ Or Pain Aspirin 325 mg PO DAILY #30 tab Atorvastatin [Lipitor] 40 mg PO HS #30 tab polyethylene glycoL 3350 [Miralax] 17 gm PO DAILY packet Cyanocobalamin [Vitamin B-12] 1,000 mcg PO DAILY #30 tab Continue amLODIPine BESYLATE/BENAZEPRIL [Lotrel 5-20 MG] 1 cap PO DAILY Potassium Chloride [Klor-Con 20] 20 meq PO DAILY Cholecalciferol [Vitamin D3 (25 Mcg = 1000 Iu)] 25 mcg PO DAILY Ascorbic Acid [Vitamin C] 500 mg PO DAILY Discontinued Atorvastatin Calcium [Lipitor] 10 mg PO DAILY Discharge Medication List Ascorbic Acid [Vitamin C] 500 mg PO DAILY 05/23/21 [History] Cholecalciferol [Vitamin D3 (25 Mcg = 1000 Iu)] 25 mcg PO DAILY 05/23/21 [History] Potassium Chloride [Klor-Con 20] 20 meq PO DAILY 05/23/21 [History] amLODIPine BESYLATE/BENAZEPRIL [Lotrel 5-20 MG] 1 cap PO DAILY 05/23/21 [History] Acetaminophen Tab [Tylenol] 650 mg PO Q6HR PRN tab 05/24/21 [Rx] Aspirin 325 mg PO DAILY #30 tab 05/24/21 [Rx] Atorvastatin [Lipitor] 40 mg PO HS #30 tab 05/24/21 [Rx] Cyanocobalamin [Vitamin B-12] 1,000 mcg PO DAILY #30 tab 05/24/21 [Rx] polyethylene glycoL 3350 [Miralax] 17 gm PO DAILY packet 05/24/21 [Rx] Follow up Appointment(s)/Referral(s): Gordy Yeung DO [Primary Care Provider] - 1-2 days Ramon Rodriges MD [REFERRING] - 1 Week Discharge Disposition: HOME SELF-CARE
--- NOTE | 2021-05-24 14:28 | P.PN ---
Subjective Progress Note Date: 05/24/21 The patient is seen at bedside and denies any further neurological deficits. She denies of any further difficulty getting her words out or slurring. Yesterday her blood pressure in the afternoon was 182/93 but otherwise her systolic blood pressure has been in the range of 120s to 150 and diastolic is been in the 70s or 80s. Her most recent blood pressure is 123/70. Objective - Vital Signs Vital signs: Vital Signs Temp 98.0 F 05/24/21 07:00 Pulse 79 05/24/21 07:00 Resp 18 05/24/21 07:00 BP 123/70 05/24/21 07:00 Pulse Ox 98 05/24/21 07:00 Intake & Output 05/23/21 05/24/21 05/24/21 18:59 06:59 18:59 Intake Total 118 118 Balance 118 118 Intake: Oral 118 118 Other: Voiding Method Toilet # Voids 1 2 # Bowel Movements 0 - Exam GENERAL: The patient is lying in bed and is not in acute distress. CHEST: The heart rate is regular rate rhythm. No murmurs to auscultation. No carotid bruit bilaterally. LUNG: Clear to auscultation bilaterally no wheezing noted throughout. Not labored breathing. ABDOMEN/GI: Bowel sounds present in all 4 quadrants. No tenderness to palpation throughout. NEUROLOGICAL: Higher mental function: The patient is awake, alert, oriented to self, place and time. Patient is following commands. No aphasia and no neglect. Cranial nerves: The pupils are round, equal and reactive to light and accommodation. Visual shaw are full to confrontation throughout. Extraocular movement is intact no nystagmus is noted. Facial sensation is normal to touch throughout. The facial strength is normal throughout. Hearing is normal bilaterally to hand rub. Tongue is midline and moved [id number] without any difficulty. No dysarthria is noted. Shoulder shrug is normal bilaterally. Motor: Gait is deferred. The strength is 5 over 5 throughout. Normal tone and bulk. Cerebellum: Normal finger to nose bilaterally. Sensation: Sensation is normal to touch throughout. Reflexes (right/left): 2+ throughout. Plantars are downgoing bilaterally. WORK-UP: Vitamin B-12 is 364. Serum folate is 12 TSH is 2.77 Lipid panel is triglyceride of 204, cholesterol is 194, LDL is 94 and HDL of 59. Urinalysis is negative for urinary tract infection. Neville virus PCR is not detected. CT of the head is reported as mild atrophy. No acute intracranial abnormality. I personally reviewed the CT of the head and there is no acute or subacute ischemia and there is no parenchymal hemorrhage seen. There is no encephalomalacia that's appreciated. MRI the brain is reported as no evidence of intracranial mass, acute or subacute infarct. Nonspecific white matter changes likely related to small vessel ischemic disease. I personally reviewed the MRI and agree there is no acute or subacute ischemia. 2-D echo was reported as left ventricle wall thickness is normal. Ejection fraction of 50-55%. Left atrium size is normal. Carotid duplex is reported as less than 50% stenosis bilaterally at the carotid bifurcation. EKG is reported as normal sinus rhythm. Left axis deviation. Abnormal EKG. - Labs CBC & Chem 7: 05/23/21 00:53 05/24/21 08:49 Labs: Abnormal Lab Results - Last 24 Hours (Table) 05/24/21 Range/Units 08:49 BUN/Creatinine Ratio 20.17 H (12.00-20.00) Ratio Triglycerides 204.00 H (0.00-149.00) mg/dL VLDL Cholesterol, Calc 40.80 H (5.00-40.00) mg/dL Assessment and Plan Assessment: * Likely Transient ischemic attack (transient episode of aphasia (expressive) and felt confused). Has risk factors for stroke (HTN, hyperlipidemia, age and nicotine use). Cannot conclusively rule outs her uncontrolled hypertension did not cause her to have the confusion and presentation of stroke like symptoms. * History of hypertension and on presentation was elevated. Not sure if her elevated blood pressure was due to Stroke via having uncontrolled HTN * History of hyperlipidemia * Osteoarthritis * History of psoriasis * Major depression * Anxiety * History of nicotine use stopped one year ago Plan: Patient stated that she does not want to be on dual antiplatelets therefore patient to be on aspirin 325 daily and to continue Lipitor 40 mg daily for secondary stroke prophylaxis. Because of low normal vitamin B12 which is 364 I started the patient on vitamin B12 1000 g daily by mouth. Continue neuro checks On cardiac monitoring. No A. fib or flutter per truck engine technician. We'll defer the hypertension management to the primary team. For DVT prophylaxis: Placed on subq heparin 5000U every 12 hours. Recommend the patient follow up with a neurologist as an outpatient within 1-2 weeks. The plan is discussed with the patient and the primary team. There is no further neurological workup. Pablo Solomon M.D. Neuro-hospitalist Time with Patient: Less than 30
[2021-05-25] MEDS ORDERED: ASPIRIN 325 MG TAB PO SCH (09:00)
== END 2021-05-24 13:37 | disposition home or self-care (01) | DRG 69 ==
LOC: EC 00:05 → 6NMEDSUR 04:25 → OBSVTOIN 14:30
PROVIDERS: ADMIT Hospitalist; ATTEND Hospitalist
DX: G45.9 Transient cerebral ischemic attack, unspecified (principal); I31.3 Pericardial effusion (noninflammatory); R47.01 Aphasia; R41.0 Disorientation, unspecified; E78.5 Hyperlipidemia, unspecified; Z20.822 Contact with and (suspected) exposure to COVID-19; Z86.16 Personal history of COVID-19; K21.9 Gastro-esophageal reflux disease without esophagitis; G31.89 Other specified degenerative diseases of nervous system; I08.1 Rheumatic disorders of both mitral and tricuspid valves; F32.9 Major depressive disorder, single episode, unspecified; F41.9 Anxiety disorder, unspecified; I10 Essential (primary) hypertension; I65.23 Occlusion and stenosis of bilateral carotid arteries; L40.9 Psoriasis, unspecified; M19.90 Unspecified osteoarthritis, unspecified site; Z79.82 Long term (current) use of aspirin; Z79.899 Other long term (current) drug therapy; Z87.891 Personal history of nicotine dependence; Z90.710 Acquired absence of both cervix and uterus; Z90.49 Acquired absence of other specified parts of digestive tract
CPT/HCPCS: 36415; 70450; 70551; 74018; 80048; 80053; 80061; 81003; 82607; 82746; 83735; 83880; 84100; 84443; 84484; 85025; 85610; 85730; 87635; 93005; 93306; 93880; 96374; 99285

== ENCOUNTER 2021-05-27 04:07 | Inpatient (IN) | payer MEDICARE, OTHER ==
--- NOTE | 2021-05-27 05:27 | ED ---
Altered Mental Status HPI - General Chief Complaint: Altered Mental Status Stated Complaint: Altered Mental Status Time Seen by Provider: 05/27/21 04:44 Source: patient, family Mode of arrival: wheelchair Limitations: altered mental status (Dementia versus delirium) - History of Present Illness Initial Comments: This patient is a 76-year-old woman brought to have evaluation after she had wandered away. The patient had been admitted 5 days ago after she had been acting strangely at home. The patient had been discharged from the hospital and was staying with her daughter. Tonight, the patient was observed to be moving furniture around the house and could not explain why. They put her to bed and then were awakened by a phone call and found out that the patient had wandered away from the home to a stranger's house. When I interview the patient, she is not able to explain why she is here. She does not seem to understand where she is or was going on. MD Complaint: confusion -: days(s) Severity: moderate Consistency of Symptoms: waxing and waning Context: history of similar presentation Associated Symptoms: denies other symptoms - Related Data Home Medications Medication Instructions Recorded Confirmed Ascorbic Acid [Vitamin C] 500 mg PO DAILY 05/23/21 05/23/21 Cholecalciferol [Vitamin D3 (25 25 mcg PO DAILY 05/23/21 05/23/21 Mcg = 1000 Iu)] Potassium Chloride [Klor-Con 20] 20 meq PO DAILY 05/23/21 05/23/21 amLODIPine BESYLATE/BENAZEPRIL 1 cap PO DAILY 05/23/21 05/23/21 [Lotrel 5-20 MG] Previous Rx's Medication Instructions Recorded Acetaminophen Tab [Tylenol] 650 mg PO Q6HR PRN tab 05/24/21 Aspirin 325 mg PO DAILY #30 tab 05/24/21 Atorvastatin [Lipitor] 40 mg PO HS #30 tab 05/24/21 Cyanocobalamin [Vitamin B-12] 1,000 mcg PO DAILY #30 tab 05/24/21 polyethylene glycoL 3350 [Miralax] 17 gm PO DAILY packet 05/24/21 Allergies Allergy/AdvReac Type Severity Reaction Status Date / Time No Known Allergies Allergy Verified 05/27/21 04:28 Review of Systems ROS Statement: Those systems with pertinent positive or pertinent negative responses have been documented in the HPI. ROS Other: All systems not noted in ROS Statement are negative. Limitations: ROS unobtainable due to patients medical condition Respiratory: Denies: cough, dyspnea Cardiovascular: Denies: chest pain Gastrointestinal: Denies: abdominal pain, vomiting Musculoskeletal: Denies: back pain Neurological: Denies: headache Past Medical History Past Medical History: GERD/Reflux, Hyperlipidemia, Hypertension Additional Past Medical History / Comment(s): covid -03/22 History of Any Multi-Drug Resistant Organisms: None Reported Past Surgical History: Cholecystectomy, Hysterectomy, Orthopedic Surgery Additional Past Surgical History / Comment(s): knee Past Anesthesia/Blood Transfusion Reactions: No Reported Reaction Past Psychological History: Anxiety Smoking Status: Never smoker Past Alcohol Use History: None Reported Past Drug Use History: None Reported General Exam Limitations: no limitations General appearance: alert, in no apparent distress Head exam: Present: atraumatic, normocephalic Eye exam: Present: normal appearance. Absent: scleral icterus, conjunctival injection Neck exam: Present: normal inspection Respiratory exam: Present: normal lung sounds bilaterally. Absent: respiratory distress, wheezes, rales, rhonchi, stridor Cardiovascular Exam: Present: regular rate, normal rhythm, normal heart sounds. Absent: systolic murmur, diastolic murmur, rubs, gallop GI/Abdominal exam: Present: soft. Absent: tenderness, guarding, rebound Extremities exam: Present: normal inspection, normal capillary refill. Absent: pedal edema, calf tenderness Back exam: Present: normal inspection. Absent: CVA tenderness (R), CVA tenderness (L) Neurological exam: Present: alert, CN II-XII intact, other (Patient is GCS 15 but is only able to follow simple one step commands.). Absent: oriented X3 (Patient is oriented only to person), motor sensory deficit Skin exam: Present: warm, dry, intact, normal color. Absent: rash Course Vital Signs 05/27/21 04:25 Temperature 98.1 F Pulse Rate 80 Respiratory 18 Rate Blood Pressure 128/68 O2 Sat by Pulse 97 Oximetry Medical Decision Making - Lab Data Result diagrams: 05/27/21 06:00 05/27/21 06:00 Lab Results 05/27/21 05/27/21 05/27/21 Range/Units 06:00 06:00 06:00 WBC 7.3 (3.8-10.6) k/uL RBC 4.35 (3.80-5.40) m/uL Hgb 13.8 (11.4-16.0) gm/dL Hct 41.8 (34.0-46.0) % MCV 96.1 (80.0-100.0) fL MCH 31.7 (25.0-35.0) pg MCHC 33.0 (31.0-37.0) g/dL RDW 14.2 (11.5-15.5) % Plt Count 268 (150-450) k/uL MPV 7.8 Neutrophils % 72 % Lymphocytes % 21 % Monocytes % 4 % Eosinophils % 1 % Basophils % 0 % Neutrophils # 5.2 (1.3-7.7) k/uL Lymphocytes # 1.5 (1.0-4.8) k/uL Monocytes # 0.3 (0-1.0) k/uL Eosinophils # 0.1 (0-0.7) k/uL Basophils # 0.0 (0-0.2) k/uL Sodium 141 (137-145) mmol/L Potassium 3.9 (3.5-5.1) mmol/L Chloride 110 H (98-107) mmol/L Carbon Dioxide 24 (22-30) mmol/L Anion Gap 7 mmol/L BUN 25 H (7-17) mg/dL Creatinine 0.69 (0.52-1.04) mg/dL Est GFR (CKD-EPI)AfAm >90 (>60 ml/min/1.73 sqM) Est GFR (CKD-EPI)NonAf 85 (>60 ml/min/1.73 sqM) Glucose 107 H (74-99) mg/dL Calcium 9.7 (8.4-10.2) mg/dL Total Bilirubin 1.1 (0.2-1.3) mg/dL AST 21 (14-36) U/L ALT 16 (4-34) U/L Alkaline Phosphatase 122 (38-126) U/L Troponin I <0.012 (0.000-0.034) ng/mL Total Protein 7.2 (6.3-8.2) g/dL Albumin 3.9 (3.5-5.0) g/dL - EKG Data -: EKG Interpreted by Ca EKG shows normal: sinus rhythm (Rate 69 bpm), axis (Normal), intervals (Normal), QRS complexes (Normal) Rate: normal (Rate 69 bpm) Interpretation: nonspecific ST-T wave changes Disposition Clinical Impression: Altered mental status Disposition: ADMITTED IP TO THIS [facility] Condition: Good Instructions (If sedation given, give patient instructions): Altered Mental Status (ED) Is patient prescribed a controlled substance at d/c from ED?: No Referrals: Gordy Yeung DO [Primary Care Provider] - 1-2 days
[2021-05-27 06:16] LABS: Basophils % (A) 0 %; Eosinophils # (A) 0.1 k/uL (0-0.7); Eosinophils % (A) 1 %; HCT 41.8 % (34.0-46.0); HGB 13.8 gm/dL (11.4-16.0); Lymphocytes # (A) 1.5 k/uL (1.0-4.8); Lymphocytes % (A) 21 %; MCH 31.7 pg (25.0-35.0); MCV 96.1 fL (80.0-100.0); Mean Platelet Volume 7.8; Monocytes # (A) 0.3 k/uL (0-1.0); Monocytes % (A) 4 %; Neutrophils # (A) 5.2 k/uL (1.3-7.7); Neutrophils % (A) 72 %; Platelet Count 268 k/uL (150-450); RBC 4.35 m/uL (3.80-5.40); RDW 14.2 % (11.5-15.5); WBC 7.3 k/uL (3.8-10.6)
[2021-05-27 06:48] LABS: ALT 16 U/L (4-34); AST 21 U/L (14-36); African American GFR (CKD) >90 (>60 ml/min/1.73 sqM); Albumin 3.9 g/dL (3.5-5.0); Alkaline Phosphatase 122 U/L (38-126); Anion Gap 7 mmol/L; Blood Urea Nitrogen 25 mg/dL (7-17); Calcium 9.7 mg/dL (8.4-10.2); Carbon Dioxide 24 mmol/L (22-30); Chloride 110 mmol/L (98-107); Glucose 107 mg/dL (74-99); Non-African American GFR(CKD) 85 (>60 ml/min/1.73 sqM); Potassium 3.9 mmol/L (3.5-5.1); Sodium 141 mmol/L (137-145); Total Bilirubin 1.1 mg/dL (0.2-1.3); Total Protein 7.2 g/dL (6.3-8.2)
[2021-05-27] MEDS ORDERED: ACETAMINOPHEN TAB 325 MG TAB PO PRN (08:35)
[2021-05-27] MEDS ORDERED: MAG HYDROX/AL HYDROX/SIMETH 30 ML CUP PO PRN (08:35)
[2021-05-27] MEDS ORDERED: NALOXONE 0.4 MG/ML 1 ML VIAL IV PRN (08:35)
[2021-05-27] MEDS: FAMOTIDINE 20 MG TAB PO SCH ×2 (09:41→21:15)
[2021-05-27] MEDS ORDERED: LORazepam 2 MG/ML INJ IV STA (18:04)
[2021-05-27] MEDS ORDERED: OLANZapine ODT 5 MG TAB PO SCH (18:30)
--- NOTE | 2021-05-28 08:57 | XR ---
EXAMINATION TYPE: XR chest 1V portable DATE OF EXAM: 05/28/2021 Comparison: 01/06/2020 Clinical History: 76-year-old female confusion Findings: Heart upper limits of normal in size. Aorta and pulmonary vasculature within normal limits. Some stra ndy atelectasis at the right lower lung. Otherwise, no consolidation or pleural effusion. Impression: Borderline heart size. Some strandy right basilar atelectasis. Otherwise, no definite acute process.
[2021-05-28] MEDS: FAMOTIDINE 20 MG TAB PO SCH ×2 (09:31→20:39)
[2021-05-28 12:22] LABS: Appearance,Urine Cloudy (Clear); Bacteria,Urine Moderate /hpf; Bilirubin,Urine Negative (Negative); Blood,Urine Negative (Negative); Color,Urine Yellow; Glucose,Urine (UA) Negative (Negative); Ketones,Urine Negative (Negative); Leukocyte Esterase,Urine Moderate (Negative); Mucus,Urine Rare /hpf; Nitrite,Urine Positive (Negative); Protein,Urine Negative (Negative); RBC,Urine 1 /hpf (0-5); Specific Gravity,Urine 1.013 (1.001-1.035); Squamous Epithelial Cell,Urine 1 /hpf (0-4); Urobilinogen,Urine <2.0 mg/dL (<2.0); WBC,Urine 8 /hpf (0-5)
[2021-05-28] MEDS ORDERED: ACETAMINOPHEN TAB 325 MG TAB PO PRN (15:03)
--- NOTE | 2021-05-28 15:44 | P.HPIM ---
History of Present Illness H&P Date: 05/28/21 Chief Complaint: Altered mental status This is a 76-year-old female with history of dementia, hypertension, hyperlipidemia, gastroesophageal reflux disease, anxiety, depression, recent covid one month ago and multiple other medical issues as brought into the ER by daughter with complaints of increased confusion, delirium. Patient recently hospitalized with possible TIA, benign neuro workup and discharged home with daughter. Daughter reports patient with increased confusion, rearranging furniture in her house, wandered down the street to a stranger's house. Afebrile, vital signs stable. Hematology, chemistry panel is unremarkable with the exception of chloride 110, BUN 25. Creatinine 0.69. During the night patient required Zyprexa for hallucinations, agitation. Review of Systems ROS Statement: Those systems with pertinent positive or pertinent negative responses have been documented in the HPI. ROS Other: All systems not noted in ROS Statement are negative. Past Medical History Past Medical History: GERD/Reflux, Hyperlipidemia, Hypertension, Osteoarthritis (OA), Skin Disorder Additional Past Medical History / Comment(s): Pt recently admitted to [facility] on 05/23/21 with confusion and speech difficulty/TIA could not be ruled out. Other hx: covid -03/22, pradip states pt has had a workup for Parkinson's with Dr. José Miguel Rodriges d/t tremors and shuffling gait/MRI/tests came back negative, past blood in stool, erosive gastritis, small hiatal hernia, psoriasis. History of Any Multi-Drug Resistant Organisms: None Reported Past Surgical History: Cholecystectomy, Hysterectomy, Joint Replacement, Orthopedic Surgery Additional Past Surgical History / Comment(s): R knee arthroscopy then total R knee arthroplasty, EGD/colonoscopy. Past Anesthesia/Blood Transfusion Reactions: No Reported Reaction Smoking Status: Former smoker, Light tobacco smoker - Past Family History Father Additional Family Medical History / Comment(s): Pradip unsure if pt's father had cancer or heart disease. Mother Family Medical History: No Reported History Additional Family Medical History / Comment(s): Mother was healthy and lived to be 103 yrs old. Medications and Allergies Home Medications Medication Instructions Recorded Confirmed Type amLODIPine BESYLATE/BENAZEPRIL 1 cap PO DAILY 05/23/21 05/27/21 History [Lotrel 5-20 MG] Acetaminophen Tab [Tylenol] 650 mg PO Q6HR PRN tab 05/24/21 05/27/21 Rx Aspirin 325 mg PO DAILY #30 tab 05/24/21 05/27/21 Rx Atorvastatin [Lipitor] 40 mg PO HS #30 tab 05/24/21 05/27/21 Rx Cyanocobalamin [Vitamin B-12] 1,000 mcg PO DAILY 05/27/21 05/27/21 History Allergies Allergy/AdvReac Type Severity Reaction Status Date / Time No Known Allergies Allergy Verified 05/27/21 09:13 Physical Exam Vitals: Vital Signs Temp Pulse Resp BP Pulse Ox 05/28/21 11:35 97 F L 68 20 128/61 94 L 05/28/21 03:45 97.5 F L 65 16 124/70 100 05/27/21 22:00 74 16 05/27/21 21:45 97.5 F L 74 14 121/62 90 L 05/27/21 19:49 98.2 F 86 18 110/60 98 Intake and Output 05/28/21 05/28/21 05/28/21 06:59 14:59 22:59 Other: Voiding Method Toilet # Voids 1 1 Weight 63.503 kg GENERAL: The patient is alert and oriented x2, no acute distress. Well developed, well nourished. Mild pleasant confusion, recognizes Dr. Yeung. HEENT: Pupils are round and equally reacting to light. EOMI. No scleral icterus. No conjunctival pallor. Normocephalic, atraumatic. No pharyngeal erythema. No thyromegaly. CARDIOVASCULAR: S1 and S2 present. No murmurs, rubs, or gallops. PULMONARY: Chest is clear to auscultation, no wheezing or crackles. ABDOMEN: Soft, nontender, nondistended, normoactive bowel sounds. No palpable organomegaly. MUSCULOSKELETAL: No joint swelling or deformity. EXTREMITIES: No cyanosis, clubbing, or pedal edema. NEUROLOGICAL: Gross neurological examination did not reveal any focal deficits. SKIN: No rashes. Warm and dry Results CBC & Chem 7: 05/27/21 06:00 05/27/21 06:00 Labs: Abnormal Lab Results - Last 24 Hours (Table) 05/28/21 Range/Units 11:00 Urine Appearance Cloudy H (Clear) Urine Nitrite Positive H (Negative) Ur Leukocyte Esterase Moderate H (Negative) Urine WBC 8 H (0-5) /hpf Urine Bacteria Moderate H (None) /hpf Urine Mucus Rare H (None) /hpf Thrombosis Risk Factor Assmnt - Choose All That Apply Other Risk Factors: Yes Each Risk Factor Represents 2 Points: Patient confined to bed Each Risk Factor Represents 3 Points: Age 75 years or older Other congenital or acquired thrombophilia - If yes, enter type in comment: No Thrombosis Risk Factor Assessment Total Risk Factor Score: 5 Thrombosis Risk Factor Assessment Level: High Risk Assessment and Plan Assessment: Acute metabolic encephalopathy, possible dementia-follows with Dr.N Rodriges over the last year-not yet diagnosed Recent likely acute (expressive) TIA , benign neuro workup Mild left lower quadrant abdominal pain, possible diverticulosis. KUB on 05/23 reported nonacute abdomen, possible acute UTI, workup in progress Hypertension Hyperlipidemia Osteoarthritis Major Depression Anxiety disorder Psoriasis History of nicotine dependence Plan: Continue on current medication regime ,monitoring and symptomatic treatm ent. UA/Cx, chest x-ray ordered to rule out potential infectious etiology of declining cognitive abilities. Speech therapy cognitive evaluation noted .PT/OT.Social work assisting with discharge planning for placement in ECF tomorrow. The impression and plan of care has been dictated as directed. : I performed a history and examination of this patient, discussed the same with the dictator. I agree with the dictator's note ,documented as a scribe. Any additional findings or plans will be noted.
[2021-05-28] MEDS: PANTOPRAZOLE 40 MG/10 ML VIAL IVP SCH (17:07)
[2021-05-28] MEDS: lisinopriL 20 MG TAB PO SCH (17:08)
[2021-05-28] MEDS: amLODIPine 5 MG TAB PO SCH (17:08)
[2021-05-28] MEDS ORDERED: OLANZapine ODT 5 MG TAB PO SCH (18:00)
[2021-05-28 19:59] VITALS: RESP 16
[2021-05-28] MEDS ORDERED: ATORVASTATIN 40 MG TAB PO SCH (21:00)
[2021-05-29] MEDS: PANTOPRAZOLE 40 MG/10 ML VIAL IVP SCH (08:43)
[2021-05-29] MEDS: amLODIPine 5 MG TAB PO SCH (08:44)
[2021-05-29] MEDS: FAMOTIDINE 20 MG TAB PO SCH (08:44)
[2021-05-29] MEDS: lisinopriL 20 MG TAB PO SCH (08:44)
[2021-05-29] MEDS ORDERED: SENNOSIDES-DOCUSATE SODIUM 1 EACH TAB PO SCH (09:00)
[2021-05-29] MEDS ORDERED: ASPIRIN 325 MG TAB PO SCH (09:00)
[2021-05-29] MEDS ORDERED: CYANOCOBALAMIN 500 MCG TAB PO SCH (09:00)
--- NOTE | 2021-05-29 11:31 | P.DS ---
Providers Date of admission: 05/27/21 08:35 Expected date of discharge: 05/29/21 Attending physician: Gordy Yeung Primary care physician: Gordy Yeung [place] [facility] Course: Final Diagnoses: Acute metabolic encephalopathy,suspect early dementia-follows with Dr.N Rodriges over the last year-not yet diagnosed, possibly related to acute UTI-culture finalizing. Recent likely acute (expressive) TIA , benign neuro workup Mild left lower quadrant abdominal pain, possible diverticulosis. KUB on 05/23 reported nonacute abdomen, acute UTI-UA with moderate leukocytes, positive nitrates and moderate bacteria, urine culture pending. Atelectasis Hypertension Hyperlipidemia Osteoarthritis Major Depression Anxiety disorder Psoriasis History of nicotine dependence Hospital course:This is a 76-year-old female with history of dementia, hypertension, hyperlipidemia, gastroesophageal reflux disease, anxiety, depression, recent covid one month ago and multiple other medical issues as brought into the ER by daughter with complaints of increased confusion, delirium. Patient recently hospitalized with possible TIA, benign neuro workup and discharged home with daughter. Daughter reports patient with increased confusion, rearranging furniture in her house, wandered down the street to a stranger's house. Afebrile, vital signs stable. Hematology, chemistry panel is unremarkable with the exception of chloride 110, BUN 25. Creatinine 0.69. During the night patient required Zyprexa for hallucinations, agitation.Speech therapy cognitive evaluation noted .PT/OT.Social work assisting with discharge planning [facility]. Significant clinical improvement. Urine culture pending, continues on antibiotics. Chest x-ray reporting strandy right basilar atelectasis otherwise non acute. Afebrile. Pleasantly confused. Diet intake 25%. Denies chest pain, palpitations or shortness of breath. Patient will be discharged to [facility] today in a stable condition with guarded prognosis. The impression and plan of care has been dictated as directed. : I performed a history and examination of this patient, discussed the same with the dictator. I agree with the dictator's note ,documented as a scribe. Any additional findings or plans will be noted. Patient Condition at Discharge: Stable Plan - Discharge Summary Discharge Rx Participant: No New Discharge Prescriptions: New Mag Hydrox/Al Hydrox/Simeth [Maalox] 15 ml PO Q6HR PRN ml PRN Reason: Indigestion OLANZapine ODT [ZyPREXA Zydis] 5 mg PO DAILY@1800 tab Famotidine [Pepcid] 20 mg PO BID tab Pantoprazole [Protonix] 40 mg PO DAILY #30 tab Acetaminophen Tab [Tylenol] 650 mg PO Q6HR PRN tab PRN Reason: Mild Pain Or Fever > 100.5 Sennosides-Docusate Sodium [Senokot-S] 2 tab PO HS #1 tablet Cefuroxime Axetil [Ceftin] 500 mg PO BID 5 Days #10 tab Continue amLODIPine BESYLATE/BENAZEPRIL [Lotrel 5-20 MG] 1 cap PO DAILY Acetaminophen Tab [Tylenol] 650 mg PO Q6HR PRN tab PRN Reason: Fever And/ Or Pain Cyanocobalamin [Vitamin B-12] 1,000 mcg PO DAILY Aspirin 325 mg PO DAILY #30 tab Atorvastatin [Lipitor] 40 mg PO HS #30 tab Discharge Medication List amLODIPine BESYLATE/BENAZEPRIL [Lotrel 5-20 MG] 1 cap PO DAILY 05/23/21 [History] Acetaminophen Tab [Tylenol] 650 mg PO Q6HR PRN tab 05/24/21 [Rx] Aspirin 325 mg PO DAILY #30 tab 05/24/21 [Rx] Atorvastatin [Lipitor] 40 mg PO HS #30 tab 05/24/21 [Rx] Cyanocobalamin [Vitamin B-12] 1,000 mcg PO DAILY 05/27/21 [History] Acetaminophen Tab [Tylenol] 650 mg PO Q6HR PRN tab 05/29/21 [Rx] Cefuroxime Axetil [Ceftin] 500 mg PO BID 5 Days #10 tab 05/29/21 [Rx] Famotidine [Pepcid] 20 mg PO BID tab 05/29/21 [Rx] Mag Hydrox/Al Hydrox/Simeth [Maalox] 15 ml PO Q6HR PRN ml 05/29/21 [Rx] OLANZapine ODT [ZyPREXA Zydis] 5 mg PO DAILY@1800 tab 05/29/21 [Rx] Pantoprazole [Protonix] 40 mg PO DAILY #30 tab 05/29/21 [Rx] Sennosides-Docusate Sodium [Senokot-S] 2 tab PO HS #1 tablet 05/29/21 [Rx] Follow up Appointment(s)/Referral(s): Gordy Yeung DO [Primary Care Provider] - 1-2 days Patient Instructions/Handouts: Altered Mental Status (ED) Activity/Diet/Wound Care/Special Instructions: urine cx pending ECF Discharge Disposition: TRANSFER TO SNF/ECF
[2021-05-29 14:22] VITALS: BP 138/76; PULSE 81; TEMP 97.6
== END 2021-05-29 16:38 | DRG 884 ==
LOC: EC 04:07 → 5NMEDONC 08:35
PROVIDERS: ADMIT Family Medicine; ATTEND Family Medicine
DX: F03.90 Unspecified dementia, unspecified severity, without behavioral disturbance, psychotic disturbance, mood disturbance, and anxiety (principal); G93.41 Metabolic encephalopathy; F05 Delirium due to known physiological condition; J98.11 Atelectasis; N39.0 Urinary tract infection, site not specified; E78.5 Hyperlipidemia, unspecified; F32.9 Major depressive disorder, single episode, unspecified; K21.9 Gastro-esophageal reflux disease without esophagitis; R45.1 Restlessness and agitation; F41.9 Anxiety disorder, unspecified; I10 Essential (primary) hypertension; L40.9 Psoriasis, unspecified; M19.90 Unspecified osteoarthritis, unspecified site; Z79.82 Long term (current) use of aspirin; Z79.899 Other long term (current) drug therapy; Z86.16 Personal history of COVID-19; Z20.822 Contact with and (suspected) exposure to COVID-19; Z86.73 Personal history of transient ischemic attack (TIA), and cerebral infarction without residual deficits; Z87.891 Personal history of nicotine dependence; Z90.710 Acquired absence of both cervix and uterus; Z96.651 Presence of right artificial knee joint; Z90.49 Acquired absence of other specified parts of digestive tract; Z98.890 Other specified postprocedural states
CPT/HCPCS: 36415; 71045; 80053; 81001; 84484; 85025; 87077; 87086; 87186; 87635; 93005; 96374; 99285